=== PATIENT | female | born 1955 | race Caucasian/White ===

== ENCOUNTER 2020-06-20 09:33 | Emergency (ER) | payer BC, SELFPAY ==
[2020-06-20 09:41] VITALS: BP 138/67; PULSE 60; RESP 20; TEMP 36.8; O2SAT 99; BMI 28.6
--- NOTE | 2020-06-20 10:07 | XR_ITS ---
EXAMINATION: XR SHOULDER, LEFT CLINICAL INFORMATION: Shoulder pain. COMPARISON: None pertinent. TECHNIQUE: AP external rotation, Grashey, scapular Y, and axillary views of the left shoulder. FINDINGS: Button and clothing artifact project over the left shoulder. There is no evidence of fracture. The glenohumeral and acromioclavicular alignments are well maintained. There is mild degenerative change at the left acromioclavicular joint. No abnormal soft tissue calcifications are visualized. The imaged thorax is unremarkable. XR/XR shoulder LT min 2V IMPRESSION: No acute osseous abnormality. No malalignment. Mild degenerative change at the AC joint. No abnormal calcifications are demonstrated. Slightly limited by overlying clothing artifact.
--- NOTE | 2020-06-20 10:10 | ECG_ITS ---
Test Reason : CHESTPAIN Blood Pressure : / mmHG Vent. Rate : 063 BPM Atrial Rate : 063 BPM P-R Int : 164 ms QRS Dur : 080 ms QT Int : 430 ms P-R-T Axes : 062 000 047 degrees QTc Int : 440 ms Normal sinus rhythm with sinus arrhythmia RSR' or QR pattern in V1 suggests right ventricular conduction delay Low voltage QRS Left axis deviation Borderline ECG When compared with ECG of 28-SEP-2018 20:08, No significant change was found Referred By: Harmeet Lynn Electronically Signed By:JACY BRUNER MD
[2020-06-20 10:38] LABS: Basophils Percent Auto 0.3 % (0-2); Imm Gran Abs Auto 0.01 X10*3/uL (0.00-0.03); Imm Gran Pct Auto 0.2 % (0.0-0.4); MANUAL DIFF FLAG SCAN; Mean Corpuscular Volume 87.4 fL (80-98); PLT CLUMP 1; SCAN SMEAR FLAG 1
--- NOTE | 2020-06-20 10:38 | ED.EXTPRO ---
HPI - Extremity Problem General Chief complaint: Back Pain/Injury Stated complaint: ABN EKG Time Seen by Provider: 06/20/20 10:07 Source: patient Mode of arrival: ambulatory Limitations: no limitations History of Present Illness HPI Narrative: patient very healthy otherwise X does exercise noticed left shoulder pains for last 5 days started from the back of the neck going to the shoulder and to the arm no paresthesia no sensory loss no motor weakness no known cervical problem. Patient never had this kind of pain before. Patient has seen an FREDIS at urgent care doctor who did the EKG and sent the patient here for further evaluation Complaint: extremity pain Onset (ago): day(s) (5) Pain Consistency: constant Location: left Severity scale (1-10): 3 Quality: aching Radiation: proximal and distal Relieving factors: nothing Exacerbating factors: range of motion Associated symptoms: denies other symptoms Related Data Previous Rx's Medication Instructions Recorded diclofenac sodium 50 mg PO Q12H PRN #20 tab 06/20/20 Allergies Allergy/AdvReac Type Severity Reaction Status Date / Time amoxicillin Allergy Unknown rash Verified 01/06/20 00:00 No Known Allergies Allergy Unverified 04/09/20 16:58 [No Known Allergies*] Review of Systems Review of Systems: REVIEW OF SYSTEMS: Pertinent positives and negatives are stated above in the history. GEN: no fevers, chills, fatigue HEENT: no nasal congestion, sore throat, ear pain NEURO: no headache, dizziness, focal weakness PULM: no cough, shortness of breath CV: no chest pain, palpitations, LE edema ABD: no abdominal pain, nausea, vomiting, diarrhea : no dysuria, urgency, frequency SKIN: no rash ROS otherwise negative x 10 PMFSH Past Medical History Medical History No known health problems Social History Social History Alcohol intake: never Smoked in Last 30 Days: No Use of substances other than those prescribed or required for medical reasons: No Advance Directives: No Advance Directives Information Provided: No Physical Exam Vital Signs: Vital Signs: Last Vital Signs Temp 98.3 F 06/20/20 09:41 Pulse 60 06/20/20 09:41 Resp 20 06/20/20 09:41 BP 138/67 06/20/20 09:41 Pulse Ox 99 06/20/20 09:41 Body Mass Index 28.6 Appearance: Alert. Oriented X3. No acute distress. Eyes: Pupils equal, round and reactive to light. ENT: Pharynx normal. Neck: Normal inspection. Neck supple. CVS: Normal heart rate and rhythm. Pulses normal. no murmur no ectopic beats Respiratory: No respiratory distress. Breath sounds normal. Abdomen: Soft and nontender. Skin: Skin warm and dry. Normal skin color. Normal skin turgor. Extremities: No lower extremity edema. Good range of movement of left shoulder. Tenderness at L trapezius area. Open can test is negative but patient had pain when doing external rotation of left arm Neuro: Oriented X 3. No motor deficit. No sensory deficit. Course Course Course Narrative: patient labs negative for any cardiac damage. Will discharge home on anti-inflammatory medicine for rotator cuff tendinitis left shoulder MDM - Extremity (Nontraumatic) MDM Narrative Medical decision making narrative: patient with shoulder pain without any acute EKG changes no cardiac history will do the basic labs x-ray of the shoulder Lab Data Attestation: I reviewed the patient's lab results. Result diagrams: 06/20/20 10:18 06/20/20 10:18 Labs: Lab Results 06/20/20 06/20/20 06/20/20 Range/Units 10:18 10:18 10:18 WBC 6.3 (4.8-10.8) X10*3/uL RBC 4.67 (4.20-5.50) X10*6/uL Hgb 14.5 (12.0-16.0) g/dl Hct 40.8 (37-47) % MCV 87.4 (80-98) fL MCH 31.0 (27.0-33.0) pg MCHC 35.5 H (31.0-35.0) g/dl RDW 13.3 (11.0-16.0) % Plt Count 121 L (160-400) X10*3/uL MPV 11.0 (9.4-12.3) fL Immature Gran % (Auto) 0.2 (0.0-0.4) % Neut % (Auto) 77.0 H (45-73) % Lymph % (Auto) 15.0 L (20-40) % Traill % (Auto) 6.1 (2-11) % Eos % (Auto) 1.4 (0-4) % Baso % (Auto) 0.3 (0-2) % Lymph # (Auto) 0.9 L (1.2-4.9) X10*3/uL Traill # (Auto) 0.4 (0.1-1.2) X10*3/uL Eos # (Auto) 0.1 (0.0-0.4) X10*3/uL Baso # (Auto) 0.0 (0.0-0.2) X10*3/uL Abs Immat Gran (auto) 0.01 (0.00-0.03) X10*3/uL Absolute Neuts (auto) 4.8 (2.0-8.3) X10*3/uL Absolute Nucleated RBC 0.000 (0.0-0.012) X10*3/uL Nucleated RBC % (auto) 0.0 (0.0-0.2) /100WBC Smear Tech's Comments Not Reportable Sodium 140 (135-145) mmol/L Potassium 4.1 (3.3-5.1) mmol/l Chloride 107 (96-108) mmol/L Carbon Dioxide 23 (22-29) mmol/L Anion Gap 14 (12-20) BUN 17 H (9-16) mg/dL Creatinine 0.80 (0.5-1.4) mg/dL Estim Creat Clear Calc 84.0 Estimated GFR > 60 Random Glucose 97 (60-115) mg/dL Calcium 9.3 (8.4-10.2) mg/dL Troponin I High Sens < 3.5 (<3.5-17.0) ng/L ECG Data Attestation EKG: I personally reviewed and interpreted this ECG as follows: ECG interpretation date: 06/20/20 Prior ECG tracings: not available for review Interpretation: normal sinus rhythm with ventricular rate of 63 normal axis normal no acute ST-T changes impression normal EKG Discharge Plan Discharge Clinical Impression: Sprain of left rotator cuff capsule Qualifiers: Encounter type: initial encounter Qualified Code(s): S43.422A - Sprain of left rotator cuff capsule, initial encounter Patient Disposition: Home, Self-Care Instructions: Rotator Cuff Tendinitis (ED) Additional Instructions: rest your left shoulder apply ice. Take pain medication as advised. Follow with physical therapy if pain continues. Follow-up with PCP for further evaluation if pain continues Prescriptions: New diclofenac sodium 50 mg tablet,delayed release (DR/EC) 50 mg PO Q12H PRN (Reason: pain) Qty: 20 RF: 0 Interventions: ED Discharge Assessment Last Done: 06/20/20 11:49 Discharge Date/Time: 06/20/20 11:49
[2020-06-20 10:39] LABS: Eosinophils Absolute Auto 0.1 X10*3/uL (0.0-0.4); Eosinophils Percent Auto 1.4 % (0-4); Hematocrit 40.8 % (37-47); Hemoglobin 14.5 g/dl (12.0-16.0); Lymphocytes Absolute Auto 0.9 X10*3/uL (1.2-4.9); Mean Corpuscular HGB Conc 35.5 g/dl (31.0-35.0); Monocytes Absolute Auto 0.4 X10*3/uL (0.1-1.2); Monocytes Percent Auto 6.1 % (2-11); Neutrophils Absolute Auto 4.8 X10*3/uL (2.0-8.3); Platelet Count 121 X10*3/uL (160-400); Red Blood Count 4.67 X10*6/uL (4.20-5.50); Red Cell Distribution Width 13.3 % (11.0-16.0); White Blood Count 6.3 X10*3/uL (4.8-10.8)
[2020-06-20 11:14] LABS: Anion Gap 14 (12-20); Blood Urea Nitrogen 17 mg/dL (9-16); Calcium 9.3 mg/dL (8.4-10.2); Carbon Dioxide 23 mmol/L (22-29); Chloride 107 mmol/L (96-108); Estimated Glomerular Filt Rate > 60; Glucose Random 97 mg/dL (60-115); Potassium 4.1 mmol/l (3.3-5.1); Sodium 140 mmol/L (135-145)
[2020-06-20 11:16] LABS: Troponin-I High Sensitivity < 3.5 ng/L (<3.5-17.0)
== END 2020-06-20 11:49 | disposition home or self-care (01) ==
PROVIDERS: Emergency Provider Internal Medicine; PCP Internal Medicine
DX: S43.422A Sprain of left rotator cuff capsule, initial encounter (principal); M25.511 Pain in right shoulder; X58.XXXA Exposure to other specified factors, initial encounter; Y93.9 Activity, unspecified; Y92.9 Unspecified place or not applicable; Y99.9 Unspecified external cause status; Z79.899 Other long term (current) drug therapy
CPT/HCPCS: 36415; 73030; 80048; 84484; 85025; 93005; 99283; 99284

== ENCOUNTER 2020-06-22 16:41 | Outpatient (REF) | payer BC, SELFPAY ==
--- NOTE | 2020-06-22 | XR_ITS ---
EXAMINATION: XR CERVICAL SPINE CLINICAL INFORMATION: Neck pain COMPARISON: None TECHNIQUE: 3 views of the cervical spine were obtained. FINDINGS: There is curvature of the lower cervical spine to the left. Bone alignment is otherwise normal. No fracture or dislocation is seen. There is degenerative spondylosis and degenerative disc disease at C5-C6 and C6-C7. Prevertebral soft tissues are normal. XR/XR cervical spine 3V IMPRESSION: Mild curvature of the lower cervical spine to the left and degenerative changes.
== END 2020-06-22 16:42 | disposition home or self-care (01) ==
LOC: HO.XRAY 16:41
PROVIDERS: PCP Internal Medicine; Visit Provider Internal Medicine
DX: M54.2 Cervicalgia (principal)
CPT/HCPCS: 72040

== ENCOUNTER 2020-06-29 15:30 | Outpatient (REF) | payer BC, SELFPAY ==
--- NOTE | 2020-06-29 | MR_ITS ---
EXAMINATION: MR CERVICAL SPINE WITHOUT CONTRAST CLINICAL INFORMATION: Left arm pain. Numbness in left hand. COMPARISON: None TECHNIQUE: MRI of the cervical spine was obtained using routine sequences without contrast. FINDINGS: VERTEBRAL BODIES AND PARASPINAL SOFT TISSUES: There is a mild reversal of the normal cervical lordosis and a leftward curvature of the cervical spine. There is seovajck-vc-enacfo disc space narrowing with a mild retrosubluxation and endplate spurring at the C5-C6 level. No compression fractures identified. The paraspinal soft tissues are unremarkable. The lung apices are clear. CERVICOMEDULLARY JUNCTION AND VISUALIZED POSTERIOR FOSSA: The craniovertebral junction and imaged portions of the brain parenchyma appear normal. No cord signal abnormality or syrinx is seen. SPINAL LEVELS: C2-C3: No disc pathology. Moderate right-sided facet arthropathy without foraminal encroachment. No central canal stenosis. C3-C4: No significant disc abnormality. Ityg-dk-dsasohfc facet arthropathy, more so on the right side without central canal stenosis or foraminal narrowing. C4-C5: Mild uncovertebral joint spurring. No central canal stenosis. Severe right-sided facet arthropathy with fngl-mc-xuggytrg right foraminal narrowing. C5-C6: Significant loss of disc height with a broad-based disc-osteophyte complex. Very mild narrowing of the central canal with moderate foraminal encroachment, worse on the left side. C6-C7: Shallow central disc protrusion and mild underlying disc bulge without central canal stenosis. Focal left foraminal disc extrusion visible which is suspected to impinge upon the left C7 nerve root. C7-T1: Well-hydrated normal appearance of the disc without central canal stenosis or foraminal narrowing. Fiabuuon-it-nckdvb right-sided facet arthropathy. MR/MR cervical spine wo con IMPRESSION: Focal left foraminal disc extrusion at C6-C7 suspected to impinge upon the left C7 nerve root. Shallow central disc protrusion without central canal stenosis, as well. Moderate multilevel right-sided facet arthropathy and foraminal encroachment with a leftward curvature of the cervical spine. Very mild narrowing of the central canal with a moderate loss of disc height and disc-osteophyte complex at C5-C6.
== END 2020-06-29 15:31 | disposition home or self-care (01) ==
LOC: HO.MRI 15:30
PROVIDERS: Visit Provider Internal Medicine
DX: M54.12 Radiculopathy, cervical region (principal)
CPT/HCPCS: 72141

== ENCOUNTER 2020-10-13 07:00 | Outpatient (RCR) | payer BC, SELFPAY | END 2020-12-03 15:00 | disposition home or self-care (01) | LOC: HO.PTCHIC 07:00 | PROVIDERS: PCP Internal Medicine; Visit Provider Neurological Surgery | DX: M54.12 Radiculopathy, cervical region (principal) | CPT/HCPCS: 97110; 97140; 97161 ==

== ENCOUNTER 2021-01-06 10:19 | Outpatient (REF) | payer BC, SELFPAY ==
[2021-01-09 03:11] LABS: HPV mRNA E6/E7 rflx Not Detected (Not Detected)
== END 2021-01-06 10:20 | disposition home or self-care (01) ==
LOC: HO.LAB 10:19
PROVIDERS: PCP Internal Medicine; Referring Provider Internal Medicine; Visit Provider Obstetrics & Gynecology
DX: Z01.419 Encounter for gynecological examination (general) (routine) without abnormal findings (principal); Z11.51 Encounter for screening for human papillomavirus (HPV)
CPT/HCPCS: 87624; 88142

== ENCOUNTER 2021-04-07 07:59 | Outpatient (REF) | payer BC, SELFPAY ==
--- NOTE | ~2021-04-07 | MM_ITS ---
EXAMINATION: MM SCREENING DIGITAL BREAST TOMOSYNTHESIS, BILATERAL CLINICAL INFORMATION: Screening. Asymptomatic. The lifetime risk of breast cancer based on the Tyrer-Cuzick Model is 9%. COMPARISON: Mammography: 04/01/2020 and prior exams dating back to 06/04/2013. TECHNIQUE: Digital breast tomosynthesis is performed in both the craniocaudal and mediolateral oblique views along with computer-aided detection (CAD). Synthesized 2D images are generated from the tomosynthesis. Additional exaggerated left CC view is provided. FINDINGS: There are scattered areas of fibroglandular density (ACR BI-RADS breast composition Category b). Right breast parenchymal pattern is similar to prior studies. There is no developing density or interval mass or architectural abnormality. Neither breast shows abnormal calcifications. The axilla and skin contours are unremarkable. The left CC view has an oval nodular asymmetric density 7.5 cm from nipple, not appreciated on exaggerated CC projection. The MLO view has small round nodularity 3:30 o'clock position, stable to decreased from 2016. Finding on standard CC view most likely represents incompletely compressed glandular tissue. Patient will be recalled for additional imaging to confirm. MM/MM tomosynthesis screening BI IMPRESSION: 1. Left: Oval asymmetric density posterior outer left breast on CC view, possibly summation artifact or incompletely compressed glandular tissue. 2. Right: No mammographic evidence of malignancy. ASSESSMENT: BI-RADS 0: Incomplete - Need Additional Imaging Evaluation RECOMMENDATION: 1. Additional views of the left breast (3-D spot CC, 3-D spot MLO). 2. Targeted ultrasound if warranted after review of the additional views. 3. Radiology department staff will contact the patient for additional imaging. This patient's information was entered into a reminder system with a target due date for their next mammogram.
--- NOTE | ~2021-04-07 | MM_ITS ---
EXAMINATION: BONE DENSITOMETRY CLINICAL INDICATION: Encounter for screening for osteoporosis. Postmenopausal. COMPARISON: Baseline BD dated 03/31/2017. TECHNIQUE: Using a [employer] DXA System (software version: 13.1) manufactured by [employer] dual-energy x-ray absorptiometry was performed of the lumbar spine and left hip. The images are of good technical quality. Summary results are attached. FINDINGS: AP SPINE L1-L4: Current: BMD 1.232 g/cm2, Z-score 1.2, T-score 0.4, normal, 0.9% increase from baseline (<5% change is not significant). Baseline: BMD 1.221 g/cm2. LEFT FEMUR, NECK: Current: BMD 0.906 g/cm2, Z-score 0.0, T-score -0.9, normal. Baseline: BMD 0.922 g/cm2. LEFT FEMUR, TOTAL: Current: BMD 1.011 g/cm2, Z-score 0.7, T-score 0.0, normal, 2.0% decrease from baseline (<5% change is not significant). Baseline: BMD 1.032 g/cm2. IDENTIFIED RISK FACTORS: Menopause. HISTORY OF FRACTURE: None listed. MEDICATIONS: Calcium or multivitamin. Vitamin D. MM/XR DEXA axial skeleton IMPRESSION: 1. DIAGNOSIS: Normal bone density based on the lowest T-score value of -0.9 in the femoral neck applying World Health Organization criteria. 2. 10-YEAR FRACTURE RISK PREDICTION, FRAX: Major osteoporotic fracture (clinical spine, forearm, hip or shoulder) 7.8%. Hip fracture 0.6%. 3. Treatment Recommendations: NOF guidelines recommend consideration for treatment in postmenopausal women and men age 50 and older presenting with the following: -A hip or vertebral (clinical or morphometric) fracture. -T-score less than or equal to -2.5 at the femoral neck or spine after appropriate evaluation to exclude secondary causes. -Low bone mass at the hip or spine and a 10-year fracture probability by FRAX of greater than or equal to 3% for hip fracture or greater than or equal to 20% for major osteoporotic fracture based on the [place] adapted WHO algorithm. 4. Other Recommendations: All treatment decisions require clinical judgment and consideration of individual patient factors, including patient preferences, comorbidities, previous drug use, risk factors not captured in the FRAX model (e.g. frailty, falls, vitamin D deficiency, increased bone turnover, interval significant decline in bone density) and possible under or overestimation of fracture risk by FRAX. FUTURE SCAN RECOMMENDATION: People with diagnosed cases of osteoporosis or at high risk for fracture should have regular bone mineral density tests. For patients eligible for Medicare, routine testing is allowed once every 2 years. The testing frequency can be increased to one year for patients who have rapidly progressing disease, those who are receiving or discontinuing medical therapy to restore bone mass, or have additional risk factors.
== END 2021-04-07 08:00 | disposition home or self-care (01) ==
LOC: HO.MAMMO 07:59
PROVIDERS: PCP Internal Medicine; Visit Provider Obstetrics & Gynecology
DX: Z13.820 Encounter for screening for osteoporosis (principal); Z78.0 Asymptomatic menopausal state; Z79.899 Other long term (current) drug therapy; Z12.31 Encounter for screening mammogram for malignant neoplasm of breast
CPT/HCPCS: 77063; 77067; 77080

== ENCOUNTER 2021-04-21 12:54 | Outpatient (REF) | payer BC, SELFPAY ==
--- NOTE | ~2021-04-21 | MM_ITS ---
EXAMINATION: MM DIAGNOSTIC DIGITAL BREAST TOMOSYNTHESIS, LEFT CLINICAL INFORMATION: Recall from screening for oval asymmetric density posterior outer left breast on CC view, possibly summation artifact or incompletely compressed glandular tissue. COMPARISON: Mammography: 04/07/2021 and prior exams dating back to 12/09/2015. TECHNIQUE: Digital breast tomosynthesis is performed. 2D images are generated from the tomosynthesis. The following views are obtained: Spot CC, spot ML. FINDINGS: There are scattered areas of fibroglandular density (ACR BI-RADS breast composition Category b). The additional spot CC view shows no persistent asymmetric density in the posterior outer breast. Parenchymal pattern appears similar to prior studies. The additional spot ML view lower quadrant shows stable smooth nodularity similar to prior spot view 2016. No developing density. Results are discussed with the patient at time of visit. MM/MM tomosynthesis added views L IMPRESSION: Additional views show no significant changes from prior studies. ASSESSMENT: BI-RADS 2: Benign RECOMMENDATION: Routine annual mammography screening. This patient's information was entered into a reminder system with a target due date for their next mammogram.
== END 2021-04-21 12:55 | disposition home or self-care (01) ==
LOC: HO.MAMMO 12:54
PROVIDERS: Visit Provider Obstetrics & Gynecology
DX: R92.2 Inconclusive mammogram (principal)
CPT/HCPCS: 77061; 77065

== ENCOUNTER 2021-08-26 09:38 | Outpatient (REF) | payer BC, SELFPAY ==
[2021-08-26 13:26] LABS: CT PCR NOT DETECTED (Not Detect.); NG PCR NOT DETECTED (Not Detect.)
== END 2021-08-26 09:39 | disposition home or self-care (01) ==
LOC: HO.LNP 09:38
PROVIDERS: PCP Internal Medicine; Visit Provider Obstetrics & Gynecology
DX: S30.814A Abrasion of vagina and vulva, initial encounter (principal)
CPT/HCPCS: 87491; 87591

== ENCOUNTER 2021-09-23 13:56 | Outpatient (REF) | payer BC, SELFPAY ==
--- NOTE | ~2021-09-23 | US_ITS ---
EXAMINATION: US PELVIS CLINICAL INFORMATION: Abnormal uterine and vaginal bleeding COMPARISON: None TECHNIQUE: Ultrasound of the pelvis is performed using both transabdominal and transvaginal transducers along with Doppler. Transvaginal imaging is performed due to inadequate visualization transabdominally. FINDINGS: The uterus is anteverted and measures 6.4 x 2.8 x 4.3 cm in dimension. No focal uterine lesion is seen. Endometrial thickness is normal measuring 0.3 cm. The ovaries are normal. The right ovary measures 3.1 x 2.2 x 2.7 cm and the left ovary measures 1.6 x 1 x 1.2 cm. There is a tubular structure in the right adnexa questionable for hydrosalpinx. There is no ascites. US/US pelvic and transvaginal IMPRESSION: Tubular structure in the right adnexa questionable for hydrosalpinx. Otherwise unremarkable exam.
== END 2021-09-23 13:57 | disposition home or self-care (01) ==
LOC: HO.HMGCX 13:56
PROVIDERS: PCP Internal Medicine; Visit Provider Obstetrics & Gynecology
DX: N93.0 Postcoital and contact bleeding (principal)
CPT/HCPCS: 76830; 76856

== ENCOUNTER 2021-09-28 08:18 | Outpatient (REF) | payer BC, SELFPAY | END 2021-09-28 08:19 | disposition home or self-care (01) | LOC: HO.HMGCX 08:18 | PROVIDERS: PCP Internal Medicine; Visit Provider Internal Medicine | DX: Z13.89 Encounter for screening for other disorder (principal) ==

== ENCOUNTER → 2021-09-30 14:26 | Outpatient (BNVA) | payer BC, SELFPAY | PROVIDERS: Visit Provider Obstetrics & Gynecology ==

== ENCOUNTER 2021-10-05 07:00 | Outpatient (RCR) | payer BC, SELFPAY ==
--- NOTE | ~2021-10-05 | XR_ITS ---
EXAMINATION: XR LUMBOSACRAL SPINE CLINICAL INFORMATION: Chronic bilateral lower back pain, left sciatica. COMPARISON: Radiographs of the sacrum and coccyx dated 07/12/2012. TECHNIQUE: AP and lateral views of the lumbar spine and lateral view of the lumbosacral junction. FINDINGS: There is bony demineralization. There is a moderate L3 upper endplate compression fracture. A further moderate L5 compression fracture is seen. There is mild posterior disc space narrowing at L2-L3, and a 3 mm retrolisthesis is seen at L3-L4. There is moderate disc space narrowing at L5-S1. No acute fracture or spondylolisthesis is seen. There is multi-level very mild lumbar spondylosis. The posterior elements are intact. There is multi-level lumbar facet arthropathy. A stable, chronic deformity of the mid sacrum is noted. The paravertebral soft tissues are unremarkable. XR/XR lumbar spine 2-3V IMPRESSION: 1. There are age-indeterminate moderate L3 and L5 compression fractures. 2. There is mild degenerative disc disease at L2-L3 and L3-L4, and moderate degenerative disc disease seen at L5-S1. 3. There is multi-level lumbar spondylosis and facet arthropathy.
== END 2022-04-14 11:43 | disposition home or self-care (01) ==
LOC: HO.PTCHIC 07:00
PROVIDERS: PCP Internal Medicine; Visit Provider Internal Medicine
DX: M53.3 Sacrococcygeal disorders, not elsewhere classified (principal); M25.552 Pain in left hip
CPT/HCPCS: 72100; 97014; 97110; 97112; 97140; 97161

== ENCOUNTER 2021-10-11 17:43 | Outpatient (REF) | payer BC, SELFPAY ==
--- NOTE | ~2021-10-11 | MR_ITS ---
EXAMINATION: MR LUMBAR SPINE WITHOUT CONTRAST CLINICAL INFORMATION: 66-year-old with chronic left-sided back pain and sciatica. COMPARISON: 09/28/2021 x-rays. TECHNIQUE: MRI of the lumbar spine was obtained using routine sequences without contrast. FINDINGS: Coronal Alignment: Slight mid lumbar levocurvature, likely positional or secondary to muscle spasm. Sagittal Alignment: 2 mm retrolisthesis at L3-L4 consistent with previous x-ray. Otherwise, the lumbosacral spine is anatomically aligned in the sagittal plane. Lumbosacral Junction: Transitional anatomy with lowest lumbar-like segment labeled as L5 which appears partially sacralized. There is deformity of the S1-S2 sacral junction with bony productive changes along the anterior and posterior margins consistent with previous trauma, with associated mild chronic angulation without marrow edema. Vertebral Bodies: Zgzj-lc-movzonyj superior endplate compression fracture deformity of L3, which appears predominantly healed. Mild loss of height of the posterior aspect of the L5 vertebral body is also noted which is chronic. Remaining vertebral body heights are well maintained. Disc Spaces and Endplates: Mild posterior disc space height loss at L2-L3 with disc desiccation noted. Mild disc space height loss at L5-S1 with disc desiccation and intradiscal ossification/calcification. Minor anterior marginal spondylosis between L1-L2 and L4-L5 inclusive. Schmorl's nodes noted along the superior endplate of L3. Spinal Canal: No abnormal developmental findings. Bone Marrow: Tiny focus of type I degenerative marrow signal change noted along the central aspect of the superior endplate of L3 adjacent to a Schmorl's node. Minimal type II marrow signal changes along the endplates at L5-S1 and L4-L5. No significant marrow-replacing process or unusual bone marrow edema. Conus Medullaris: Terminates at L1. Morphology and signal is normal. Intradural Nerve Roots: Within normal limits. L5-S1: No significant disc bulge or herniation. There is partial ankylosis of the L5-S1 facet joints bilaterally, right more than left, consistent with a transitional segment. No significant canal or neuroforaminal stenosis. L4-L5: Mild diffuse disc bulging is noted, with ligamentum flavum thickening and severe bilateral facet arthrosis, with severe central spinal canal stenosis and crowding of the intradural nerve roots. Eaabkvnm-ev-xjiybd subarticular recess stenosis, left more than right, is also noted and there is severe right-sided and ireupghe-lc-cbeqak left-sided neuroforaminal stenosis, with impingement on the exiting L4 nerve roots, right more than left. L3-L4: Trace retrolisthesis with mild disc bulging and a superimposed left subarticular to foraminal disc protrusion. Mild facet arthropathy bilaterally noted without significant central spinal canal stenosis. There is yuoo-ew-ccjwwlgj narrowing of the left subarticular zone, and there is mild right-sided and avrp-zg-ugfrvksy left-sided neuroforaminal stenosis without exiting neural impingement. L2-L3: Mild disc bulging is noted with a superimposed small left subarticular disc protrusion with slight flattening of the dural sac slightly asymmetric to the left without significant canal stenosis. There is mild facet arthropathy noted without significant neuroforaminal stenosis. L1-L2: No disc bulge or herniation and no significant facet arthrosis, canal or neuroforaminal stenosis. Paraspinal/Retroperitoneal: The paravertebral soft tissues are grossly unremarkable. Incidental note is made of a prominently distended urinary bladder. MR/MR lumbar spine wo con IMPRESSION: 1. Slight retrolisthesis at L3-L4 noted with transitional anatomy at L5-S1. 2. Discogenic degenerative changes between L2-L3 and L5-S1 inclusive, as described above, with multilevel disc bulging and left subarticular to foraminal disc protrusion at L3-L4. Multilevel bilateral facet arthropathy noted, most apparent at L4-L5, with severe spinal canal stenosis at L4-L5. 3. Mild left subarticular recess stenosis at L3-L4. 4. Cmezhrzp-bb-onrfbh neuroforaminal stenosis at L4-L5, right more than left, with bilateral L4 nerve root impingement. Cdvt-eq-exuljsvj left and mild right-sided neuroforaminal stenosis at L3-L4 without exiting neural impingement. 5. Mild chronic superior endplate compression fracture deformity of L3 and a chronic posttraumatic deformity of the sacrum in the midline suggesting a previous, healed fracture. 6. Considerably enlarged urinary bladder. Correlate clinically to exclude urinary retention.
--- NOTE | ~2021-10-11 | MR_ITS ---
EXAMINATION: MR PELVIS WITHOUT CONTRAST CLINICAL INFORMATION: Chronic left-sided back pain and left sided sciatic. COMPARISON: Radiographs 07/20/2012. TECHNIQUE: MRI without contrast is performed on the pelvis with attention to the sacroiliac joints. FINDINGS: The sacroiliac joints are narrowed with small osteophytes. No effusions, marrow edema, erosions, or definite ankylosis. There is a transitional lumbosacral junction with the left L5 transverse process articulating with the sacrum. L5-S1 disc space narrowing. Marked bilateral L5-S1 facet arthrosis. Possible remote, healed transverse fracture of S2 given the kyphotic positioning which does not appear significantly changed since 2011. Piriformis muscles are symmetric. There is no mass, mass effect, or focal fluid collection along the course of the left sciatic nerve which appears to be of normal and symmetric size and signal. No hip joint effusions. Bilateral gluteus minimus insertional tendinitis. MR/MR pelvis wo con IMPRESSION: No acute osseous abnormalities. No active sacroiliitis. Left gluteus minimus insertional tendinitis.
== END 2021-10-11 17:44 | disposition home or self-care (01) ==
LOC: HO.MRI 17:43
PROVIDERS: PCP Internal Medicine; Visit Provider Internal Medicine
DX: G89.29 Other chronic pain (principal); M54.42 Lumbago with sciatica, left side; M53.3 Sacrococcygeal disorders, not elsewhere classified
CPT/HCPCS: 72148; 72195

== ENCOUNTER 2021-10-27 14:22 | Outpatient (REF) | payer BC, SELFPAY | END 2021-10-27 14:23 | disposition home or self-care (01) | LOC: HO.LAB 14:22 | PROVIDERS: PCP Internal Medicine; Visit Provider Urology | DX: N39.0 Urinary tract infection, site not specified (principal); R39.12 Poor urinary stream; R33.9 Retention of urine, unspecified; N36.2 Urethral caruncle; Z78.0 Asymptomatic menopausal state | CPT/HCPCS: 87086; 87088; 87186 ==

== ENCOUNTER → 2021-12-28 10:18 | Outpatient (BNVA) | payer BC, SELFPAY | PROVIDERS: PCP Internal Medicine; Visit Provider Urology | DX: N36.2 Urethral caruncle (principal); R33.9 Retention of urine, unspecified | CPT/HCPCS: 51798 ==

== ENCOUNTER 2022-04-08 07:51 | Day surgery (SDC) | payer BC, SELFPAY ==
[2022-04-05 09:08] VITALS: BMI 29.0
--- NOTE | 2022-04-07 14:37 | HO.ANESPROP2 ---
Documented by User: Marybel Monroe NP 04/07/22 14:37 HPI - Anesthesia Eval Consult details Narrative: 66yo F for Colonoscopy PMFSH Active Problems Active Problems: All Active Problems (Updated 04/05/22 @ 09:07 by Radha Hadley RN) Well woman exam (Acute) Menopausal state (Acute) Osteopenia (Acute) Postcoital bleeding (Acute) Urethral polyp (Acute) Vaginal abrasion (Acute) Urethral caruncle (Acute) Urinary retention with incomplete bladder emptying (Acute) Past Medical History Medical History GERD (gastroesophageal reflux disease) Surgical History Surgical History H/O colonoscopy History of back surgery History of esophagogastroduodenoscopy (EGD) History of tonsillectomy Hx of appendectomy Social History Social History Household Members: Spouse Housing: House Alcohol intake: never Patient Tobacco Use Status: Never used Tobacco Use of substances other than those prescribed or required for medical reasons: No Are you DNR?: No Advance Directives: No Advance Directives Information Provided: Yes Sexual orientation: Straight/Heterosexual Gender identity: Female Meds Allergies Allergy/AdvReac Type Severity Reaction Status Date / Time amoxicillin Allergy Intermediate rash Verified 04/08/22 08:29 Home Medications Medication Instructions Recorded Confirmed Last Taken Type cholecalciferol (vitamin D3) 25 25 mcg PO DAILY 02/10/22 04/05/22 Unknown History mcg (1,000 unit) capsule Exam Exam Date and Time: April 07, 2022 1437 Height,Weight and Vital Signs: Height 5 ft 9 in Weight 89.358 kg Assessment and Plan Assessment Anesthesia Assessment: Chart Reviewed Documented by User: Italo Peña MD 04/08/22 09:00 PMFSH Past Medical History Medical History GERD (gastroesophageal reflux disease) Family History Family history of problems with anesthesia: No Surgical History Surgical History H/O colonoscopy History of back surgery History of esophagogastroduodenoscopy (EGD) History of tonsillectomy Hx of appendectomy History of Problems with Anesthesia: No Social History Social History Household Members: Spouse Housing: House Alcohol intake: never Patient Tobacco Use Status: Never used Tobacco Use of substances other than those prescribed or required for medical reasons: No Are you DNR?: No Advance Directives: No Advance Directives Information Provided: Yes Sexual orientation: Straight/Heterosexual Gender identity: Female Meds Allergies Allergy/AdvReac Type Severity Reaction Status Date / Time amoxicillin Allergy Intermediate rash Verified 04/08/22 08:29 Home Medications Medication Instructions Recorded Confirmed Last Taken Type cholecalciferol (vitamin D3) 25 25 mcg PO DAILY 02/10/22 04/05/22 Unknown History mcg (1,000 unit) capsule Exam Airway Mallampati Class: II TM Dist: >3cm Neck ROM: Full Loose/Missing/Broken Teeth: No Heart: [id number] Lungs: cta b/l Assessment and Plan Assessment Anesthesia Assessment: Anesthesia Plan Discussed Final Anesthetic Review Family History of Problems with Anesthesia: No History of Problems with Anesthesia: No NPO: Yes ASA Class: II Final Preanesthetic Review: No Changes in Pt Med Stat, Meds/Allgs Chart Reviewed, Consent Obtained/Reviewed and Anes Risks/Benef Reviewed Patient Risk: Intermediate Procedure Risk: Low Assessment/Block/Sedation in SS: Assess/Block/Sedation-SS Anesthetic Plan Anesthetic Plan: MAC: and Agree w/ Assess. and Plan Disposition: Standard PACU
[2022-04-08 08:46] VITALS: BP 125/72; PULSE 73; RESP 16; TEMP 36.7; O2SAT 97
[2022-04-08] MEDS: Lactated Ringers 1,000 ML 100 ML IVCONT (08:50)
[2022-04-08 09:47] VITALS: BP 95/41; PULSE 89; RESP 16; TEMP 36.1; O2SAT 97
--- NOTE | 2022-04-08 09:51 | PM.OP ---
Brief Operative Note Date of Service: 04/08/22 Pre-op diagnosis: Screening Post-op diagnosis: other (Colon polyps) Procedure: Colonoscopy to the cecum and TI with bx/removal of polyps Surgeon: Dakota Pfeiffer Anesthesia: MAC Was an Field Cane Scale Clerk used for this Procedure?: No Estimated blood loss (mL): 2.0 Pathology: other (A. Ileocecal valve polyp B. Ascending colon polyp) Condition: stable Disposition: PACU
[2022-04-08 10:04] VITALS: BP 98/53; PULSE 77; RESP 15; TEMP 36.1; O2SAT 99
--- NOTE | 2022-04-08 10:21 | OP_ITS ---
SURGEON: Dakota Pfeiffer MD INDICATIONS: The patient presents for evaluation of colorectal cancer screening and personal history of tubular adenoma of the colon. Full consent has been obtained from her for this, including risks of bleeding and perforation. PREOPERATIVE DIAGNOSIS: POSTOPERATIVE DIAGNOSIS: PROCEDURE PERFORMED: Colonoscopy to the cecum and terminal ileum with biopsy and removal of polyps. ESTIMATED BLOOD LOSS: COMPLICATIONS: ANESTHESIA: Monitored anesthesia care. ASSISTANTS: SPECIMENS: PREOPERATIVE DIAGNOSES: Colorectal cancer screening, personal history of tubular adenoma of the colon, and family history of colon cancer. POSTOPERATIVE DIAGNOSES: Colorectal cancer screening, personal history of tubular adenoma of the colon, and family history of colon cancer, small colon polyps, diverticulosis, and internal hemorrhoids. DESCRIPTION OF PROCEDURE: The patient was placed in the left lateral decubitus position. The digital rectal exam revealed no abnormalities. The [employer] video pediatric colonoscope was entered into the rectum and advanced easily to the cecum. Once in the cecum, I did identify a normal-appearing cecal pouch with appendiceal orifice and a normal-appearing ileocecal valve, other than an approximately 4 mm polyp on the ileocecal valve, which was removed completely with a cold biopsy forceps. The terminal ileum was cannulated and appeared normal. The scope was withdrawn back in the colon. The entire cecum appeared normal. The scope was slowly withdrawn assessing all mucosal surfaces carefully. Preparation was excellent. In the ascending colon was an approximately 2 or 3 mm polyp, which was biopsied and completely removed with a cold biopsy forceps. I did not visualize any other polyps, colitis, or angiodysplasia. There was a mild amount of sigmoid diverticulosis. In the rectum, the scope was retroflexed visualizing internal hemorrhoids but no other pathology. The rectal mucosa appeared normal. The scope was straightened and withdrawn from the patient. She tolerated the procedure well and was returned to the recovery area in stable condition. IMPRESSION: 1. Small colon polyps, status post biopsy and removal. 2. Diverticulosis. 3. Internal hemorrhoids. PLAN: The results of the biopsy will be checked. I would recommend a repeat colonoscopy in 5 years for further screening. She will otherwise see me on a p.r.n. basis. MD THOMAS Brown/EILEEN / [phone]
== END 2022-04-08 10:30 | disposition home or self-care (01) ==
PROVIDERS: PCP Internal Medicine; Visit Provider Internal Medicine
PROC: 0DJD8ZZ Inspection of Lower Intestinal Tract, Via Natural or Artificial Opening Endoscopic (ICD-10-PCS; CPT 45378; principal; 2022-04-08 09:00)
DX: Z12.11 Encounter for screening for malignant neoplasm of colon (principal); Z86.010 Personal history of colon polyps; Z80.0 Family history of malignant neoplasm of digestive organs; D12.0 Benign neoplasm of cecum; D12.2 Benign neoplasm of ascending colon; K57.30 Diverticulosis of large intestine without perforation or abscess without bleeding; K64.8 Other hemorrhoids; K21.9 Gastro-esophageal reflux disease without esophagitis; Z79.899 Other long term (current) drug therapy; Z88.1 Allergy status to other antibiotic agents
CPT/HCPCS: 45380; 88305

== ENCOUNTER 2022-04-18 07:30 | Outpatient (REF) | payer BC, SELFPAY ==
--- NOTE | ~2022-04-18 | MM_ITS ---
EXAMINATION: MM SCREENING DIGITAL BREAST TOMOSYNTHESIS, BILATERAL CLINICAL INFORMATION: Screening. Asymptomatic. The lifetime risk of breast cancer based on the Tyrer-Cuzick Model is 8%. COMPARISON: Mammography: 04/21/2021, 04/07/2021 and prior exams dating back to 09/14/2015. TECHNIQUE: Digital breast tomosynthesis is performed in both the craniocaudal and mediolateral oblique views along with computer-aided detection (CAD). Synthesized 2D images are generated from the tomosynthesis. FINDINGS: There are scattered areas of fibroglandular density (ACR BI-RADS breast composition Category b). Parenchymal pattern is similar to prior studies. No developing density or interval mass or architectural abnormality. Small chronic asymmetry outer left breast is similar to prior studies. No abnormal calcifications. The axilla and skin contours are unremarkable. No significant changes. MM/MM tomosynthesis screening BI IMPRESSION: No mammographic evidence of malignancy. ASSESSMENT: BI-RADS 2: Benign RECOMMENDATION: Routine annual mammography screening. This patient's information was entered into a reminder system with a target due date for their next mammogram.
== END 2022-04-18 07:31 | disposition home or self-care (01) ==
LOC: HO.MAMMO 07:30
PROVIDERS: PCP Internal Medicine; Visit Provider Internal Medicine
DX: Z12.31 Encounter for screening mammogram for malignant neoplasm of breast (principal)
CPT/HCPCS: 77063; 77067

== ENCOUNTER 2022-05-16 12:37 | Outpatient (REF) | payer BC, SELFPAY ==
[2022-05-16 13:59] LABS: Appearance Urine Cloudy; Color Urine Yellow; Glucose Urine UA Negative (Negative); Leukocyte Esterase Urine Large (3+) (Negative); Nitrite Urine Negative (Negative); UMIC TRIGGER UA YES; Urine Blood Negative (Negative); Urine Ketones Negative (Negative); Urine Protein Negative (Neg-Trace)
[2022-05-16 14:03] LABS: Bacteria Urine 2+ (None Seen); Hyaline Casts Urine 0-2 /LPF (0-2); RBC Urine 0-2 /HPF (0-2); Squamous Epithelial Cell Urine 0-2 /HPF (0-2); WBC Urine >50 /HPF (0-5)
== END 2022-05-16 12:38 | disposition home or self-care (01) ==
LOC: HO.HMGCLDS 12:37
PROVIDERS: PCP Internal Medicine; Visit Provider Urology
DX: R33.9 Retention of urine, unspecified (principal)
CPT/HCPCS: 81001; 87086; 87088; 87186

== ENCOUNTER 2022-06-07 07:00 | Outpatient (RCR) | payer BC, SELFPAY | END 2022-09-09 10:31 | disposition home or self-care (01) | LOC: HO.PTCHIC 07:00 | PROVIDERS: PCP Internal Medicine; Visit Provider Internal Medicine | DX: M54.12 Radiculopathy, cervical region (principal); M54.2 Cervicalgia | CPT/HCPCS: 97012; 97110; 97140; 97162 ==

== ENCOUNTER 2022-07-04 14:55 | Outpatient (REF) | payer BC, SELFPAY ==
--- NOTE | ~2022-07-04 | MR_ITS ---
EXAMINATION: MR SHOULDER WITHOUT CONTRAST, RIGHT CLINICAL INFORMATION: Radiculopathy, right shoulder pain. Decreased range of motion. COMPARISON: None TECHNIQUE: MRI of the shoulder without contrast was performed on a high-field scanner. FINDINGS: ROTATOR CUFF: An interstitial tear of the supraspinatus tendon measures 0.8 cm AP. There is longitudinal interstitial delamination propagating medially within the tendon along the myotendinous junction by 4.8 cm with a small intramuscular sentinel cyst. There is moderate supraspinatus tendinosis. Cortical irregularity is evident at the greater tuberosity with chronic periosteal hypertrophy. Moderate subscapularis tendinosis. No subscapularis tendon tears. No muscle atrophy or fatty infiltration. BICEPS: Normal. CORACOACROMIAL ARCH: The undersurface of the acromion is curved with a small anterior subacromial spur. Moderate acromioclavicular osteoarthritis with prominent undersurface osteophytes that produce minimal mass effect on the supraspinatus muscle. A small volume of fluid is present in the subacromial-subdeltoid bursa and subcoracoid bursa. LABRUM/CAPSULE: The glenoid labrum is degenerated diffusely with loss of labral tissue and probable small ill-defined superimposed degenerative tears anteroinferiorly and posterosuperiorly. Joint capsule appears intact. No appreciable capsular thickening or edema signal. GLENOHUMERAL JOINT/MARROW: There is moderate nonuniform articular cartilage loss at the glenoid, more pronounced at its posterior half. Additional [id number] nonuniform articular cartilage loss is evident at the humeral head, most pronounced anterosuperiorly where there is full-thickness chondral fissuring and underlying cortical irregularity. Moderate-sized humeral osteophytes and smaller glenoid osteophytes are noted. Small glenohumeral joint effusion. A 6 x 4 mm chondral loose body is evident in the superior subscapularis recess. MR/MR shoulder RT wo con IMPRESSION: 1. Moderate glenohumeral osteoarthritis with diffuse degeneration of the glenoid labrum. 2. Moderate supraspinatus and subscapularis tendinosis with a small 0.8 cm interstitial partial tear of the supraspinatus tendon. No larger rotator cuff tears. No muscle atrophy. 3. Moderate acromioclavicular osteoarthritis, a small anterior subacromial spur, and mild subacromial-subdeltoid bursitis. 4. Small 6 mm chondral loose body in the superior subscapularis recess.
--- NOTE | ~2022-07-04 | MR_ITS ---
EXAMINATION: MR CERVICAL SPINE WITHOUT CONTRAST CLINICAL INFORMATION: Right shoulder pain. C/S radiculopathy. COMPARISON: Cervical spine MRI 01/28/2020. TECHNIQUE: MRI of the cervical spine was performed using routine sequences without contrast. FINDINGS: The cervical vertebral bodies maintain normal heights. There is moderate disc height loss at C5-C6 with trace retrolisthesis. Moderate disc height loss also seen at C6-C7. The cervical cord signal appears normal. There is no bone marrow edema. The imaged intracranial contents and extraspinal soft tissues appear normal. SPINAL LEVELS: C2-C3: No posterior disc abnormality. Moderate right facet arthropathy. No spinal canal or neural foraminal stenosis. C3-C4: No posterior disc abnormality. Severe right and mild left facet arthropathy. No spinal canal or neural foraminal stenosis. C4-C5: Mild uncovertebral hypertrophy and severe right facet arthropathy. No spinal canal or neural foraminal stenosis. C5-C6: Disc osteophyte complex with uncovertebral hypertrophy and mild right facet arthropathy resulting in mild spinal canal stenosis and moderate to severe left and moderate right neural foraminal stenosis. C6-C7: Mild disc osteophyte complex with left uncovertebral hypertrophy resulting in severe left and mild right neural foraminal stenosis. Mild spinal canal stenosis. C7-T1: No posterior disc abnormality. No spinal canal or neural foraminal stenosis. MR/MR cervical spine wo con IMPRESSION: 1. At C5-C6 there is mild spinal canal stenosis and moderate to severe left and moderate right neural foraminal stenosis. 2. At C6-C7 there is severe left and mild right neural foraminal stenosis and mild spinal canal stenosis. 3. Advanced facet arthropathy is seen on the right at C2-C3, C3-C4, and C4-C5.
== END 2022-07-04 14:56 | disposition home or self-care (01) ==
LOC: HO.MRI 14:55
PROVIDERS: Visit Provider Physician Assistant
DX: M54.12 Radiculopathy, cervical region (principal); M25.511 Pain in right shoulder
CPT/HCPCS: 72141; 73221

== ENCOUNTER 2022-08-29 14:30 | Outpatient (REF) | payer BC, SELFPAY ==
[2022-08-29 16:37] LABS: Appearance Urine Cloudy; Color Urine Yellow; Glucose Urine UA Negative (Negative); Leukocyte Esterase Urine Large (3+) (Negative); Nitrite Urine Positive (Negative); PH 5.5 (5.0-9.0); Specific Gravity - Urine 1.015 (1.005-1.025); UMIC TRIGGER UA YES; Urine Blood Negative (Negative); Urine Ketones Negative (Negative); Urine Protein Negative (Neg-Trace)
[2022-08-29 16:39] LABS: Bacteria Urine 1+ (None Seen); Hyaline Casts Urine 0-2 /LPF (0-2); RBC Urine 0-2 /HPF (0-2); Squamous Epithelial Cell Urine 0-2 /HPF (0-2); WBC Urine >50 /HPF (0-5)
== END 2022-08-29 14:31 | disposition home or self-care (01) ==
LOC: HO.HMGCLDS 14:30
PROVIDERS: PCP Internal Medicine; Visit Provider Urology
DX: R33.9 Retention of urine, unspecified (principal)
CPT/HCPCS: 81001; 87086; 87088; 87186

== ENCOUNTER 2022-09-26 14:07 | Outpatient (REF) | payer BC, SELFPAY ==
[2022-09-27 09:07] LABS: BV Int Neg Control Negative (Negative); BV Int Pos Control Positive (Positive)
== END 2022-09-26 14:08 | disposition home or self-care (01) ==
LOC: HO.LAB 14:07
PROVIDERS: PCP Internal Medicine; Visit Provider Advanced Practice Midwife
DX: N94.9 Unspecified condition associated with female genital organs and menstrual cycle (principal)
CPT/HCPCS: 81003; 87480; 87510; 87660

== ENCOUNTER → 2022-10-05 08:01 | Outpatient (BNVA) | payer BC, SELFPAY | PROVIDERS: PCP Internal Medicine; Visit Provider Advanced Practice Midwife | DX: Z13.89 Encounter for screening for other disorder (principal) ==

== ENCOUNTER → 2022-10-25 10:53 | Outpatient (BNVA) | payer BC, SELFPAY | PROVIDERS: PCP Internal Medicine; Visit Provider Advanced Practice Midwife | DX: Z13.89 Encounter for screening for other disorder (principal) ==

== ENCOUNTER 2022-11-25 07:00 | Outpatient (RCR) | payer BC, SELFPAY | END 2023-01-03 09:17 | disposition home or self-care (01) | LOC: HO.PTCHIC 07:00 | PROVIDERS: PCP Internal Medicine; Visit Provider Orthopaedic Surgery Orthopaedic Trauma | DX: R60.0 Localized edema (principal); M75.111 Incomplete rotator cuff tear or rupture of right shoulder, not specified as traumatic | CPT/HCPCS: 97110; 97140; 97162 ==

== ENCOUNTER 2022-12-29 13:07 | Outpatient (REF) | payer BC, SELFPAY ==
[2022-12-29 14:05] LABS: Appearance Urine Turbid; Color Urine Yellow; Glucose Urine UA Negative (Negative); Leukocyte Esterase Urine Large (3+) (Negative); Nitrite Urine Positive (Negative); PH 6.5 (5.0-9.0); UMIC TRIGGER UA YES; Urine Blood Small (1+) (Negative); Urine Ketones Negative (Negative); Urine Protein Trace mg/dL (Neg-Trace)
[2022-12-29 14:22] LABS: Bacteria Urine 4+ (None Seen); Hyaline Casts Urine 0-2 /LPF (0-2); Squamous Epithelial Cell Urine 0-2 /HPF (0-2); WBC Urine >50 /HPF (0-5)
== END 2022-12-29 13:08 | disposition home or self-care (01) ==
LOC: HO.HMGCLDS 13:07
PROVIDERS: PCP Internal Medicine; Visit Provider Nurse Practitioner Family
DX: R33.9 Retention of urine, unspecified (principal)
CPT/HCPCS: 81001; 87086; 87088; 87186

== ENCOUNTER → 2023-01-02 10:02 | Outpatient (BNVA) | payer BC, SELFPAY | PROVIDERS: PCP Internal Medicine; Visit Provider Nurse Practitioner Family | DX: R33.9 Retention of urine, unspecified (principal); N39.0 Urinary tract infection, site not specified; Z79.899 Other long term (current) drug therapy | CPT/HCPCS: 51798 ==

== ENCOUNTER 2023-01-04 11:10 | Outpatient (REF) | payer BC, SELFPAY ==
--- NOTE | ~2023-01-04 | US_ITS ---
EXAMINATION: US RETROPERITONEAL COMPLETE (RENAL) CLINICAL INFORMATION: Urinary tract infection, site not specified. COMPARISON: None available. TECHNIQUE: Real-time imaging of the kidneys and bladder. FINDINGS: RIGHT KIDNEY: 10.5 x 4.0 x 5.8 cm (SAG x AP x TRV). The kidney is normal in size, contour, and echogenicity. Renal cortical thickness is normal. No calculi or focal parenchymal lesions. No hydronephrosis. LEFT KIDNEY: 10.3 x 5.7 x 5.2 cm (SAG x AP x TRV). The kidney is normal in size, contour, and echogenicity. Renal cortical thickness is normal. No calculi or focal parenchymal lesions. No hydronephrosis. BLADDER: Well distended and normal. Bilateral ureteral jets are demonstrated. Prevoid bladder volume is 624 mL. Postvoid bladder volume is 193 mL. US/US retroperitoneal comp IMPRESSION: 1. Large postvoid bladder residual of 193 mL. 2. Unremarkable sonographic appearance of the kidneys.
== END 2023-01-04 11:11 | disposition home or self-care (01) ==
LOC: HO.HMGCX 11:10
PROVIDERS: PCP Internal Medicine; Visit Provider Nurse Practitioner Family
DX: N39.0 Urinary tract infection, site not specified (principal); R33.9 Retention of urine, unspecified
CPT/HCPCS: 76770

== ENCOUNTER 2023-02-08 07:00 | Outpatient (RCR) | payer BC, SELFPAY | END 2023-02-08 10:56 | disposition home or self-care (01) | LOC: HO.PTCHIC 07:00 | PROVIDERS: PCP Internal Medicine; Visit Provider Orthopaedic Surgery Orthopaedic Trauma | DX: M75.102 Unspecified rotator cuff tear or rupture of left shoulder, not specified as traumatic (principal) | CPT/HCPCS: 97110; 97140; 97163 ==

== ENCOUNTER 2023-02-13 07:48 | Outpatient (AMB) | payer BC, SELFPAY ==
--- NOTE | 2023-02-13 07:52 | MHC.OFFVIS ---
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 No complaints. Last Pap/HPV was negative in 01/11 Last Mammogram was BI-RADS 2 in 04/14, the patient scheduled her next screening mammogram in few weeks Last Colonoscopy was in 04/14, will be due in 04/19 No recent DEXA scan PFSH Medical History GERD (gastroesophageal reflux disease) Vulvar pain Surgical History H/O colonoscopy History of back surgery History of esophagogastroduodenoscopy (EGD) History of tonsillectomy Hx of appendectomy Family History Father Colon cancer Mother HTN (hypertension) Dementia Social History Household Members: Spouse Housing: House Alcohol intake: never Patient Tobacco Use Status: Never used Tobacco Sexual orientation: Straight/Heterosexual Gender identity: Female Female Reproductive History Menstrual Age of Menarche: 12 Total pregnancies: 1 Full term: 1 Number of Living Children: 1 Date of last pap smear: 01/07/21 Date of Mammogram: 04/18/22 Review of Systems Const All systems reviewed & are unremarkable except as noted in HPI and below Card Reports as per HPI Resp Reports as per HPI GI Reports as per HPI and Reports no additional complaints Reports as per HPI Physical Exam Vital Signs: Last Vital Signs BP 110/62 02/13/23 07:53 BMI result Body Mass Index 28.8 Const General: cooperative, healthy appearing and comfortable Chest Chest palpation & inspection: normal inspection of the chest and normal palpation of entire chest wall Breast/axilla inspection: normal inspection of the breasts and normal inspection of the axillae Breast/axilla palpation: normal palpation of the breasts, normal palpation of the axillae and no axillary lymphadenopathy Resp Effort & Inspection: normal respiratory effort Auscultation: clear to auscultation bilaterally Percussion: percussion normal Cardio Palpation: normal PMI Rate: regular rate Rhythm: regular rhythm Heart sounds: no murmurs and no rubs Peripheral pulses: Peripheral pulses 2+ throughout GI Inspection: Yes normal to inspection Palpation (GI): Soft to palpation, nontender, no guarding, not rigid and No hepatosplenomegaly present Percussion: Yes normal to percussion Auscultation: normal bowel sounds Rectal Exam - Female: deferred General: Yes bladder normal to palpation External Female Exam: No lesion Speculum Exam - Vagina: normal appearance of the vagina, normal palpation, normal vaginal discharge and not erythematous Speculum Exam - Cervix: normal appearance of the cervix and normal palpation Bimanual exam- vagina & uterus: normal bimanual exam, normal palpation, uterine size normal, bladder normal to palpation, consistency normal and normal palpation Bimanual Exam- Adnexa, other: normal adnexae, no masses and no tenderness Assessment & Plan Assessment & Plan (1) Well woman exam: Code(s): Z01.419 - Encounter for gynecological examination (general) (routine) without abnormal findings Plan: Co testing not indicated since the patient 's age is above 65 with no history of abnormal Pap smears last 25 years. Counseled the patient about the recommended dietary allowance of 1200 mg of Calcium & 800 IU of vitamin D. Mammogram scheduled in few weeks, the patient is up-to-date with her screening colonoscopy done. Will order DEXA scan . The patient was instructed to perform monthly self-breast exams and to schedule a 2 week DEXA scan follow-up appointment and an annual exam in a year; all questions answered and the patient verbalized understanding. Orders: Orders XR DEXA axial skeleton Today N95.1 - Menopausal and female climacteric states Coding Level of Care Code Est Pt Prev Care >65y(72016) Diagnoses Well woman exam Z01.419
[2023-02-13 07:53] VITALS: BP 110/62; BMI 28.8
== END 2023-02-13 08:14 | disposition home or self-care (01) ==
LOC: HO.HWS 07:48
PROVIDERS: PCP Internal Medicine; Visit Provider Obstetrics & Gynecology
DX: Z01.419 Encounter for gynecological examination (general) (routine) without abnormal findings (principal)
CPT/HCPCS: 99397

== ENCOUNTER → 2023-02-13 07:48 | Outpatient (BNVA) | payer BC, SELFPAY | PROVIDERS: PCP Internal Medicine; Visit Provider Obstetrics & Gynecology ==

== ENCOUNTER 2023-02-17 10:25 | Outpatient (AMB) | payer BC, SELFPAY ==
--- NOTE | 2023-02-17 10:29 | A.OFFVIS_ITS ---
Intake Intake Visit Reasons: follow up/US/PVR(set) Intake Note: Patient is present for follow up retention/PVR/ultrasond (imaging 01/04/23) Urology Medications: estrace cream, terazosin Blood Thinner: none PVR:0ml's Physician Interventional Cardiologist Required: No Accompanied by: Self / Same As Patient Allergies amoxicillin Allergy (Intermediate, Verified 02/22/23 07:39) rash Medication List - Last Reconciled 02/22/23 by DEBBIE Burns acetaminophen ER 650 mg PO Q8H PRN calcium carbonate 500 mg PO DAILY cholecalciferol (vitamin D3) 25 mcg PO DAILY diclofenac sodium 0 mg PO estradiol 0.01%(0.1mg/gram) pea-sized to urethra 3 times a week 30 days terazosin 1 mg PO BEDTIME 90 days HPI HPI Comments History of Present Illness Details Vijaya is a pleasant 67-year-old female patient of Dr. Olsen. She presents to the office today for follow-up of recurrent urinary tract infections and incomplete bladder emptying. In discussion with the patient today she reports to be doing and feeling well. Of note, patient was seen approximately 6 weeks ago at which time a retroperitoneal ultrasound was ordered for further assessment evaluation. These results were reviewed with the patient today. Bilateral kidneys with no calculi, lesions, and or hydronephrosis noted. The bladder is well distended and normal. Pre void bladder volume is approximately 630 mL. Postvoid bladder volume is approximately 200 mL. Discussed at length incomplete bladder emptying. Discussed incomplete bladder emptying in the setting of recurrent urinary tract infections. In office urinalysis results reviewed with the patient today. PVR in office today 0ml's. When asked patient reports compliance with Estrace cream and 1 mg of terazosin as prescribed. Discussed at length potential causes for recurrent urinary tract infections. Patient denies any urinary issues or concerns at this time. Patien t denies any UTI like symptoms at this time. When asked she denies urinary urgency, urinary frequency, incontinence, nocturia, hematuria, dysuria, foul smelling urine, changes to urinary stream, flank pain, fever, and or chills. She discusses her upcoming surgery for rotator cuff repair. She otherwise offers no issues or concerns at this time.no issues or concerns at this time. PENDING SALE TO [facility] Medical History GERD (gastroesophageal reflux disease) Vulvar pain Surgical History H/O colonoscopy History of back surgery History of esophagogastroduodenoscopy (EGD) History of tonsillectomy Hx of appendectomy Family History Father Colon cancer Mother HTN (hypertension) Dementia Social History Household Members: Spouse Housing: House Alcohol intake: never Patient Tobacco Use Status: Never used Tobacco Sexual orientation: Straight/Heterosexual Gender identity: Female Female Reproductive History Menstrual Age of Menarche: 12 Review of Systems Const Reports as per HPI Eyes Reports no additional complaints ENT Reports no additional complaints Card Reports no additional complaints Resp Reports no additional complaints GI Reports no additional complaints Reports as per HPI Musc Reports as per HPI Neuro Reports no additional complaints Psych Reports no additional complaints Endo Reports no additional complaints Getachew/Lymph Reports no additional complaints Aller/Immun Reports no additional complaints Physical Exam Const General: cooperative, healthy appearing, comfortable, no acute distress, well developed, alert and awake Orientation/consciousness: patient oriented x3 Limitations: no limitations HEENT Head: Yes normal to inspection, Yes normocephalic and Yes atraumatic Ears: hearing grossly normal bilaterally Eyes General: appearance normal, both eyes and all related structures Neck Neck: Yes normal visual inspection and Yes trachea midline Chest Chest palpation & inspection: normal inspection of the chest Resp Effort & Inspection: normal respiratory effort and able to speak in complete sentences Cardio Rate: regular rate GI Inspection: Yes normal to inspection General: Yes no CVA tenderness Back/Spine/Pelvis Back: no CVA tenderness Skin General skin exam: no rashes or lesions noted Neuro General: patient oriented x3 Extrem General: Yes normal to inspection Psych Appearance: grossly normal and well kempt Mental Status: mental status grossly normal Speech and movement: Normal speech and movement present and Clear speech present Affect: normal affect Attitude: cooperative Thought process: Normal thought process present Thought content: Normal thought content present Insight: Good insight present (Psych) Judgement: Good judgement present (Psych) Office Procedures Post Void Residual Post Residual Void Post Void Residual (PVR): 0 [id number] Void Residual by ultrasound Results AMB Urinalysis, Automated UA Leukoctes 0 Marnie/uL Last Edit by Pocket Changearvin on 02/17/23 10:48 UA Nitrite Last Edit by Pocket Changearvin on 02/17/23 10:48 UA Urobilinogen 0.2 mg/dL Last Edit by ShoutOmaticmanda BioAtlantisarvin on 02/17/23 10:48 UA Protein 0 mg/dL Last Edit by Pocket Changearvin on 02/17/23 10:48 UA pH 6.0 Last Edit by Pocket Changearvin on 02/17/23 10:48 UA Blood 0 Lokesh/uL Last Edit by Pocket Changearvin on 02/17/23 10:48 UA Specific [place] 1.020 Last Edit by Reelation on 02/17/23 10:48 UA Ketone Negative Last Edit by Pocket Changearvin on 02/17/23 10:48 UA Bilirubin 0 mg/dL Last Edit by Pocket Changearvin on 02/17/23 10:48 UA Glucose 0 mg/dL Last Edit by Pocket Changearvin on 02/17/23 10:48 Results Reviewed Results Reviewed: Laboratory Last Values Urine pH (Auto) 6.0 02/17/23 10:47 Specific [place] (Auto) 1.020 02/17/23 10:47 Urine Protein (Auto) 0 mg/dL 02/17/23 10:47 Glucose (UA)(Auto) 0 mg/dL 02/17/23 10:47 Urine Ketones (Auto) Negative 02/17/23 10:47 Urine Blood (Auto) 0 Lokesh/uL 02/17/23 10:47 Urine Bilirubin (Auto) 0 mg/dL 02/17/23 10:47 Urine Urobilinogen (Auto) 0.2 mg/dL 02/17/23 10:47 Leukocyte Esterase (Auto) 0 Manrie/uL 02/17/23 10:47 Date of Service: 01/04/23 Procedure(s): US retroperitoneal comp FINDINGS: RIGHT KIDNEY: 10.5 x 4.0 x 5.8 cm (SAG x AP x TRV). The kidney is normal in size, contour, and echogenicity. Renal cortical thickness is normal. No calculi or focal parenchymal lesions. No hydronephrosis. LEFT KIDNEY: 10.3 x 5.7 x 5.2 cm (SAG x AP x TRV). The kidney is normal in size, contour, and echogenicity. Renal cortical thickness is normal. No calculi or focal parenchymal lesions. No hydronephrosis. BLADDER: Well distended and normal. Bilateral ureteral jets are demonstrated. Prevoid bladder volume is 624 mL. Postvoid bladder volume is 193 mL. IMPRESSION: 1.? Large postvoid bladder residual of 193 mL. 2.? Unremarkable sonographic appearance of the kidneys. Assessment & Plan Assessment & Plan (1) Recurrent UTI: Code(s): N39.0 - Urinary tract infection, site not specified (2) Urinary retention with incomplete bladder emptying: Code(s): R33.9 - Retention of urine, unspecified Plan In office urinalysis results reviewed with the patient today; as noted above. PVR 0 mL. Recent retroperitoneal ultrasound results reviewed with the patient today; as noted above. Discussed at length affects of incomplete bladder emptying in relation to recurrent urinary tract infections. Discussed at length potential causes for recurrent urinary tract infections. Continue terazosin and Estrace cream as discussed and prescribed. Discussed double voiding. Discussed UTI prevention with D mannose supplement, vitamin-C, increasing fluid intake, behavioral therapy with timed voiding, perineal hygiene and postcoital voiding, and management of constipation with stool softeners and increased fiber intake. Discussed methanamine and vitamin C versus low dose antibiotic therapy for suppression. Discussed near future in office cystoscopy if symptoms persist and/or worsen. Follow-up in 6 months if not sooner with any issues, concerns, or questions. Orders: Orders AMB Urinalysis Automated 02/17/23 Z13.9 - Encounter for screening, unspecified AMB Post Void Residual by ultrasound 02/17/23 N39.0 - Urinary tract infection, site not specified Medications: Changed From terazosin 1 mg PO BEDTIME 30 days 30 caps 1RF R39.12 - Poor urinary stream To terazosin 1 mg PO BEDTIME 90 days 90 caps 1RF R39.12 - Poor urinary stream Patient Instructions: The patient had an opportunity to ask questions regarding the treatment plan. All questions were answered. Physical exam, labs, and imaging were discussed and reviewed in detail. As well as risks, benefits, and discussion of treatment choices. No major barriers to understanding were identified. The patient expressed understanding and agreement with the above treatment plan. The patient was made aware they should contact our office by phone for worsening of their current condition, the appearance of new symptoms, or with any questions or concerns. Compliance is encouraged with any medications and follow up testing that is ordered. It is a privilege to be allowed the opportunity to participate in? your urological care.? Again, if you have any questions or concerns If you have any questions or concerns please do not hesitate to contact me. The office is [phone]. This note is constructed using voice recognition software. While every effort has been made to ensure accuracy tank erector errors may have been included. Yours sincerely, SYDNIE Burns- Coding Level of Care Code Est Pt Level 3 (64775) Diagnoses Recurrent UTI N39.0 Urinary retention with incomplete bladder emptying R33.9 CPT Codes Post Residual Void - PVR CPT Code: 00077-Cqbx Void Residual by ultrasound ([id number])
== END 2023-02-17 11:16 | disposition home or self-care (01) ==
PROVIDERS: PCP Internal Medicine; Visit Provider Nurse Practitioner Family
DX: N39.0 Urinary tract infection, site not specified (principal); R33.9 Retention of urine, unspecified
CPT/HCPCS: 99213

== ENCOUNTER → 2023-02-17 10:25 | Outpatient (BNVA) | payer BC, SELFPAY | PROVIDERS: PCP Internal Medicine; Visit Provider Nurse Practitioner Family | DX: N39.0 Urinary tract infection, site not specified (principal); R33.9 Retention of urine, unspecified; Z79.899 Other long term (current) drug therapy | CPT/HCPCS: 51798 ==

== ENCOUNTER 2023-04-13 07:53 | Outpatient (REF) | payer BC, SELFPAY ==
--- NOTE | ~2023-04-13 | MM_ITS ---
EXAMINATION: BONE DENSITOMETRY CLINICAL INDICATION: Menopause. COMPARISON: Previous BD dated 04/07/2021 and baseline BD dated 03/31/2017. TECHNIQUE: Using a Talkray DXA System (software version: 13.1) manufactured by [employer], dual-energy x-ray absorptiometry was performed of the lumbar spine and left hip. The images are of good technical quality. Summary results are attached. FINDINGS: LEFT FEMUR, NECK: Current: BMD 0.914 g/cm2, Z-score 0.2, T-score -0.9, normal. Prior: BMD 0.906 g/cm2. Baseline: BMD 0.922 g/cm2. LEFT FEMUR, TOTAL: Current: BMD 0.981 g/cm2, Z-score 0.6, T-score -0.2, normal, 3.0% decrease from previous, 4.9% decrease from baseline (<5% change is not significant). Prior: BMD 1.011 g/cm2. Baseline: BMD 1.032 g/cm2. AP SPINE L1-L4: Current: BMD 1.124 g/cm2, Z-score 0.4, T-score -0.5, normal, 8.8% decrease from previous, 7.9% decrease from baseline (<5% change is not significant). Prior: BMD 1.232 g/cm2. Baseline: BMD 1.221 g/cm2. IDENTIFIED RISK FACTORS: Menopause, secondary osteoporosis. HISTORY OF FRACTURE: None listed. MEDICATIONS: Calcium or multivitamin. Vitamin D. MM/XR DEXA axial skeleton IMPRESSION: 1. DIAGNOSIS: Normal bone density based on the lowest T-score value of -0.9 in the lumbar spine applying World Health Organization criteria. 2. 10-YEAR FRACTURE RISK PREDICTION, FRAX: According to the guidelines, FRAX calculation should only be performed on patients in the osteopenia bone density category. Therefore, FRAX was not performed on this patient. 3. Treatment Recommendations: NOF guidelines recommend consideration for treatment in postmenopausal women and men age 50 and older presenting with the following: -A hip or vertebral (clinical or morphometric) fracture. -T-score less than or equal to -2.5 at the femoral neck or spine after appropriate evaluation to exclude secondary causes. -Low bone mass at the hip or spine and a 10-year fracture probability by FRAX of greater than or equal to 3% for hip fracture or greater than or equal to 20% for major osteoporotic fracture based on the [place] adapted WHO algorithm. 4. Other Recommendations: All treatment decisions require clinical judgment and consideration of individual patient factors, including patient preferences, comorbidities, previous drug use, risk factors not captured in the FRAX model (e.g. frailty, falls, vitamin D deficiency, increased bone turnover, interval significant decline in bone density) and possible under or overestimation of fracture risk by FRAX. FUTURE SCAN RECOMMENDATION: People with diagnosed cases of osteoporosis or at high risk for fracture should have regular bone mineral density tests. For patients eligible for Medicare, routine testing is allowed once every 2 years. The testing frequency can be increased to one year for patients who have rapidly progressing disease, those who are receiving or discontinuing medical therapy to restore bone mass, or have additional risk factors.
== END 2023-04-13 07:54 | disposition home or self-care (01) ==
LOC: HO.MAMMO 07:53
PROVIDERS: PCP Internal Medicine; Visit Provider Obstetrics & Gynecology
DX: Z13.820 Encounter for screening for osteoporosis (principal); Z78.0 Asymptomatic menopausal state
CPT/HCPCS: 77080

== ENCOUNTER 2023-05-01 07:55 | Outpatient (REF) | payer BC, SELFPAY | END 2023-05-01 07:56 | disposition home or self-care (01) | LOC: HO.MAMMO 07:55 | PROVIDERS: PCP Internal Medicine; Visit Provider Internal Medicine | DX: Z12.31 Encounter for screening mammogram for malignant neoplasm of breast (principal) | CPT/HCPCS: 77063; 77067 ==

== ENCOUNTER → 2023-05-01 08:00 | Outpatient (BNV) | payer BC, SELFPAY | PROVIDERS: PCP Internal Medicine; Visit Provider Radiology Diagnostic Radiology | DX: Z12.31 Encounter for screening mammogram for malignant neoplasm of breast (principal) | CPT/HCPCS: 77063; 77067 ==

== ENCOUNTER 2023-05-29 07:46 | Outpatient (AMB) | payer BC, SELFPAY ==
--- NOTE | 2023-05-29 07:47 | A.OFFVIS_ITS ---
Intake Intake Visit Reasons: TV Dexa results Direct Chill Casting Operator Required: No Information Interpreted: non-clinical & clinical Allergies amoxicillin Allergy (Intermediate, Verified 05/29/23 07:48) rash HPI HPI Comments History of Present Illness Details The patient schedule it tele health visit for follow up regarding DEXA scan results. T score @ spine and femoral Neck respectively were=-0.5 /-0.9 and 10 year FRAX risk was not calculated PFSH Medical History Vulvar pain GERD (gastroesophageal reflux disease) Surgical History History of esophagogastroduodenoscopy (EGD) H/O colonoscopy History of back surgery History of tonsillectomy Hx of appendectomy Family History Father Colon cancer Mother HTN (hypertension) Dementia Social History Household Members: Spouse Housing: House Alcohol intake: never Patient Tobacco Use Status: Never used Tobacco Sexual orientation: Straight/Heterosexual Gender identity: Female Female Reproductive History Menstrual Age of Menarche: 12 Review of Systems Const All systems reviewed & are unremarkable except as noted in HPI and below Reports as per HPI and Reports no additional complaints GI Reports no additional complaints Reports no additional complaints Assessment & Plan Assessment & Plan (1) Osteopenia: Code(s): M85.80 - Other specified disorders of bone density and structure, unspecified site Plan: Discussed with the patient the DEXA results , T score showed no evidence of osteoporosis. Discussed with the patient all the options for osteoporosis pre vention including lifestyle modifications including Ca+D supplements 1200 mg po qd/800 MIU, Weight bearing exercises and proteine supplements. The patient verbalized understanding and agreed plan will repeat DEXA in 2 years. I spent a total of 20 minutes reviewing the chart, talking to the patient via video and documenting in the medical record. Telehealth Telehealth Location of provider rendering services: practice address Location of patient: address on file Patient Identification confirmed using: Name, : Yes Telehealth method: video Patient verbally consented to treatment: Yes Patient verbally consented to billing insurance company: Yes Patient informed of any privacy concerns related to visit: Yes Coding Level of Care Code Tele Est Pt Level 3 (53584) Diagnoses Osteopenia M85.80
== END 2023-05-29 09:55 | disposition home or self-care (01) ==
LOC: HO.HWS 07:46
PROVIDERS: PCP Internal Medicine; Visit Provider Obstetrics & Gynecology
DX: M85.80 Other specified disorders of bone density and structure, unspecified site (principal)
CPT/HCPCS: 99213

== ENCOUNTER → 2023-05-29 07:46 | Outpatient (BNVA) | payer BC, SELFPAY | PROVIDERS: PCP Internal Medicine; Visit Provider Obstetrics & Gynecology ==

== ENCOUNTER 2023-07-06 14:18 | Outpatient (REF) | payer BC, SELFPAY ==
[2023-07-06 16:46] LABS: Appearance Urine Turbid; Color Urine Yellow; Glucose Urine UA Negative (Negative); Leukocyte Esterase Urine Moderate (2+) (Negative); Nitrite Urine Positive (Negative); PH 5.5 (5.0-9.0); UMIC TRIGGER UA YES; Urine Blood Small (1+) (Negative); Urine Ketones Negative (Negative); Urine Protein Trace mg/dL (Neg-Trace)
[2023-07-06 18:00] LABS: Bacteria Urine 4+ (None Seen); Hyaline Casts Urine 0-2 /LPF (0-2); RBC Urine 0-2 /HPF (0-2); Squamous Epithelial Cell Urine 0-2 /HPF (0-2); WBC Urine >50 /HPF (0-5)
== END 2023-07-06 14:19 | disposition home or self-care (01) ==
LOC: HO.HMGCLDS 14:18
PROVIDERS: PCP Internal Medicine; Visit Provider Nurse Practitioner Family
DX: N39.0 Urinary tract infection, site not specified (principal)
CPT/HCPCS: 81001; 87086; 87088; 87186

== ENCOUNTER 2023-08-21 09:11 | Outpatient (AMB) | payer BC, SELFPAY ==
--- NOTE | 2023-08-21 09:20 | A.OFFVIS_ITS ---
Intake Intake Visit Reasons: 6m/PVR Intake Note: Patient is present for follow up retention and recurrent uti's Urology Medications: estrace cream, terazosin Blood Thinner: none PVR:0ml's Seed Cleaner Operator Required: No Accompanied by: Self / Same As Patient Allergies amoxicillin Allergy (Intermediate, Verified 08/21/23 09:51) rash Medication List - Last Reconciled 08/21/23 by SYDNIE Burns- acetaminophen ER 650 mg PO Q8H PRN calcium carbonate 500 mg PO DAILY cholecalciferol (vitamin D3) 25 mcg PO DAILY diclofenac sodium 0 mg PO estradiol 0.01%(0.1mg/gram) pea-sized to urethra 3 times a week 30 days nitrofurantoin monohyd/m-cryst 100 mg (Macrobid) 100 mg PO Q12H 14 days terazosin 1 mg PO BEDTIME 90 days HPI HPI Comments History of Present Illness Details Vijaya is a pleasant 68-year-old female patient of Dr. Olsen. She presents to the office today for follow-up of recurrent urinary tract infections and incomplete bladder emptying. In discussion with the patient today she reports to be doing and feeling well. Since her last visit here approximately 6 months ago she has had one urinary tract infection which was last month. In review of patient's chart it appears urine culture with E coli she has since been treated and feeling well. She reports feeling UTI presented itself as she did not follow her typical routine after sexual intercourse. She currently denies any bothersome urinary issues or concerns. In office uri nalysis results reviewed with the patient today. PVR 0 mL. She reports compliance with Estrace cream as prescribed as well as 1 mg of terazosin daily. She currently denies any UTI like symptoms. Previous workup has included a retroperitoneal ultrasound noting bilateral kidneys with no calculi, lesions, and or hydronephrosis noted. The bladder is well distended and normal. Pre void bladder volume is approximately 630 mL. Postvoid bladder volume is approximately 200 mL. When asked she denies urinary urgency, urinary frequency, incontinence, nocturia, hematuria, dysuria, foul smelling urine, changes to urinary stream, flank pain, fever, and or chills. She discusses her She otherwise offers no issues or concerns at this time.no issues or concerns at this time. [facility] Medical History Vulvar pain GERD (gastroesophageal reflux disease) Surgical History History of esophagogastroduodenoscopy (EGD) H/O colonoscopy History of back surgery History of tonsillectomy Hx of appendectomy Family History Father Colon cancer Mother HTN (hypertension) Dementia Social History Household Members: Spouse Housing: House Alcohol intake: never Patient Tobacco Use Status: Never used Tobacco Sexual orientation: Straight/Heterosexual Gender identity: Female Female Reproductive History Menstrual Age of Menarche: 12 Review of Systems Const Reports as per HPI Eyes Reports no additional complaints ENT Reports no additional complaints Card Reports no additional complaints Resp Reports no additional complaints GI Reports no additional complaints Reports as per HPI Musc Reports as per HPI Neuro Reports no additional complaints Psych Reports no additional complaints Endo Reports no additional complaints Getachew/Lymph Reports no additional complaints Aller/Immun Reports no additional complaints Physical Exam Const General: cooperative, healthy appearing, comfortable, no acute distress, well developed, alert and awake Orientation/consciousness: patient oriented x3 Limitations: no limitations HEENT Head: Yes normal to inspection, Yes normocephalic and Yes atraumatic Ears: hearing grossly normal bilaterally Eyes General: appearance normal, both eyes and all related structures Neck Neck: Yes normal visual inspection and Yes trachea midline Chest Chest palpation & inspection: normal inspection of the chest Resp Effort & Inspection: normal respiratory effort and able to speak in complete sentences Cardio Rate: regular rate GI Inspection: Yes normal to inspection General: Yes no CVA tenderness Back/Spine/Pelvis Back: no CVA tenderness Skin General skin exam: no rashes or lesions noted Neuro General: patient oriented x3 Extrem General: Yes normal to inspection Psych Appearance: grossly normal and well kempt Mental Status: mental status grossly normal Speech and movement: Normal speech and movement present and Clear speech present Affect: normal affect Attitude: cooperative Thought process: Normal thought process present Thought content: Normal thought content present Insight: Good insight present (Psych) Judgement: Good judgement present (Psych) Office Procedures Post Void Residual Post Residual Void Post Void Residual (PVR): 0 [id number] Void Residual by ultrasound Results AMB Urinalysis, Automated UA Leukoctes 0 Marnie/uL Last Edit by Ariadna Cuello on 08/21/23 09:35 UA Nitrite Negative Last Edit by Ariadna Cuello on 08/21/23 09:35 UA Urobilinogen 0.2 mg/dL Last Edit by Ariadna Cuello on 08/21/23 09:35 UA Protein 0 mg/dL Last Edit by Ariadna Cuello on 08/21/23 09:35 UA pH 6.0 Last Edit by Ariadna Cuello on 08/21/23 09:35 UA Blood 0 Lokesh/uL Last Edit by Basiae Khushboo on 08/21/23 09:35 UA Specific [place] 1.015 Last Edit by Ariadna Cuello on 08/21/23 09:35 UA Ketone Negative Last Edit by Ariadna Cuello on 08/21/23 09:35 UA Bilirubin 0 mg/dL Last Edit by Ariadna Cuello on 08/21/23 09:35 UA Glucose 0 mg/dL Last Edit by Ariadna Cuello on 08/21/23 09:35 Results Reviewed Results Reviewed: Laboratory Last Values Urine pH (Auto) 6.0 08/21/23 09:25 Specific [place] (Auto) 1.015 08/21/23 09:25 Urine Protein (Auto) 0 mg/dL 08/21/23 09:25 Glucose (UA)(Auto) 0 mg/dL 08/21/23 09:25 Urine Ketones (Auto) Negative 08/21/23 09:25 Urine Blood (Auto) 0 Lokesh/uL 08/21/23 09:25 Urine Nitrite (Auto) Negative 08/21/23 09:25 Urine Bilirubin (Auto) 0 mg/dL 08/21/23 09:25 Urine Urobilinogen (Auto) 0.2 mg/dL 08/21/23 09:25 Leukocyte Esterase (Auto) 0 Marnie/uL 08/21/23 09:25 Assessment & Plan Assessment & Plan (1) Recurrent UTI: Code(s): N39.0 - Urinary tract infection, site not specified (2) Urinary retention with incomplete bladder emptying: Code(s): R33.9 - Retention of urine, unspecified Plan In office urinalysis results reviewed with the patient today; as noted above. PVR 0 mL. . Discussed at length potential causes for recurrent urinary tract infections. Continue terazosin and Estrace cream as discussed and prescribed; refills provided. Discussed UTI prevention with D mannose supplement, vitamin-C, increasing fluid intake, behavioral therapy with timed voiding, perineal hygiene and postcoital voiding, and management of constipation with stool softeners and increased fiber intake. Will attempt to discontinue terazosin prior to next appointment to further assess efficacy. Discussed standing orders given UTI over the weekend; medication provided Follow-up in 6 months if not sooner with any issues, concerns, or questions. 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 All questions were answered. Physical exam, labs, and imaging were discussed and reviewed in detail. As well as risks, benefits, and discussion of treatment choices. No major barriers to understanding were identified. The patient expressed understanding and agreement with the above treatment plan. The patient was made aware they should contact our office by phone for worsening of their current condition, the appearance of new symptoms, or with any questions or concerns. Compliance is encouraged with any medications and follow up testing that is ordered. It is a privilege to be allowed the opportunity to participate in? your urological care.? Again, if you have any questions or concerns If you have any questions or concerns please do not hesitate to contact me. The office is [phone]. This note is constructed using voice recognition software. While every effort has been made to ensure accuracy power transformer inspector errors may have been included. Yours sincerely, DEBBIE Burns Coding Level of Care Code Est Pt Level 4 (53410) Diagnoses Recurrent UTI N39.0 Urinary retention with incomplete bladder emptying R33.9 CPT Codes Post Residual Void - PVR CPT Code: 12215-Tpbn Void Residual by ultrasound ([id number])
== END 2023-08-21 09:52 | disposition home or self-care (01) ==
PROVIDERS: PCP Internal Medicine; Visit Provider Nurse Practitioner Family
DX: N39.0 Urinary tract infection, site not specified (principal); R33.9 Retention of urine, unspecified; Z13.9 Encounter for screening, unspecified
CPT/HCPCS: 99214

== ENCOUNTER → 2023-08-21 09:11 | Outpatient (BNVA) | payer BC, SELFPAY | PROVIDERS: PCP Internal Medicine; Visit Provider Nurse Practitioner Family | DX: N39.0 Urinary tract infection, site not specified (principal); R33.9 Retention of urine, unspecified; Z79.899 Other long term (current) drug therapy | CPT/HCPCS: 51798; 81003 ==

== ENCOUNTER 2023-12-02 07:06 | Outpatient (REF) | payer BC, SELFPAY ==
[2023-12-02 11:24] LABS: Estimated Average Glucose 94 mg/dL; Hemoglobin A1c % 4.9 % (<6.0)
[2023-12-02 11:35] LABS: Alanine Aminotransferase 12 U/L (0-31); Albumin Level 4.3 g/dL (3.5-5.0); Alkaline Phosphatase 65 U/L (39-117); Anion Gap 14 (12-20); Aspartate Amino Transferase 20 U/L (5-31); Bilirubin Total 0.7 mg/dL (0.0-1.0); Blood Urea Nitrogen 19 mg/dL (9-16); Calcium 9.6 mg/dL (8.4-10.2); Carbon Dioxide 23 mmol/L (22-29); Chloride 109 mmol/L (96-108); Cholesterol 185 mg/dL (<200); Estimated Glomerular Filt Rate > 60; Glucose Random 95 mg/dL (60-115); HDL Cholesterol 56 mg/dL (>40); LDL Cholesterol Calculated 118 mg/dL (<100); Potassium 4.2 mmol/L (3.3-5.1); Sodium 142 mmol/L (135-145); Triglycerides 57 mg/dL (<150)
[2023-12-02 11:53] LABS: TSH reflex Free T4 2.01 uIU/mL (0.32-4.0)
== END 2023-12-02 07:07 | disposition home or self-care (01) ==
LOC: HO.HMGCLDS 07:06
PROVIDERS: PCP Internal Medicine; Visit Provider Internal Medicine
DX: E78.00 Pure hypercholesterolemia, unspecified (principal); R73.01 Impaired fasting glucose; E55.9 Vitamin D deficiency, unspecified
CPT/HCPCS: 36415; 80053; 80061; 82306; 83036; 84443

== ENCOUNTER 2024-02-20 07:55 | Outpatient (AMB) | payer BC, SELFPAY ==
--- NOTE | 2024-02-20 08:01 | A.OFFVIS_ITS ---
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 No complaints. Last Pap/HPV was negative in 01/11, this was preceded by negative co testing in 09/08 Last Mammogram was BI-RADS 1 in 05/15 Last Colonoscopy was in 04/14, the recommendation was to repeat in 5 years Last DEXA scan was in 04/15 and was in the low risk category PFSH Medical History Vulvar pain GERD (gastroesophageal reflux disease) Surgical History (Updated 02/20/24 @ 08:07 by Marilyn Carter CMA) Hx of rotator cuff surgery History of esophagogastroduodenoscopy (EGD) H/O colonoscopy History of back surgery History of tonsillectomy Hx of appendectomy Family History Father Colon cancer Mother HTN (hypertension) Dementia Social History (Updated 02/20/24 @ 08:08 by Marilyn Carter CMA) Household Members: Spouse Housing: House Alcohol intake: never Patient Tobacco Use Status: Never used Tobacco Current occupational status: employed 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 Sexual orientation: Straight/Heterosexual Gender identity: Female Female Reproductive History Menstrual Age of Menarche: 12 Total pregnancies: 1 Full term: 1 Number of Living Children: 1 Date of last pap smear: 01/07/21 Date of Mammogram: 06/01/23 Review of Systems Const All systems reviewed & are unremarkable except as noted in HPI and below Card Reports as per HPI Resp Reports as per HPI GI Reports as per HPI and Reports no additional complaints Reports as per HPI Physical Exam Vital Signs: Last Vital Signs BP 110/66 02/20/24 08:04 BMI result Body Mass Index 28.4 Const General: cooperative, healthy appearing and comfortable Chest Chest palpation & inspection: normal inspection of the chest and normal palpation of entire chest wall Breast/axilla inspection: normal inspection of the breasts and normal inspection of the axillae Breast/axilla palpation: normal palpation of the breasts, normal palpation of the axillae and no axillary lymphadenopathy Resp Effort & Inspection: normal respiratory effort Auscultation: clear to auscultation bilaterally Percussion: percussion normal Cardio Palpation: normal PMI Rate: regular rate Rhythm: regular rhythm Heart sounds: no murmurs and no rubs Peripheral pulses: Peripheral pulses 2+ throughout GI Inspection: Yes normal to inspection Palpation (GI): Soft to palpation, nontender, no guarding, not rigid and No hepatosplenomegaly present Percussion: Yes normal to percussion Auscultation: normal bowel sounds Rectal Exam - Female: deferred General: Yes bladder normal to palpation External Female Exam: No lesion Speculum Exam - Vagina: normal appearance of the vagina, normal palpation, normal vaginal discharge and not erythematous Speculum Exam - Cervix: normal appearance of the cervix and normal palpation Bimanual exam- vagina & uterus: normal bimanual exam, normal palpation, uterine size normal, bladder normal to palpation, consistency normal and normal palpation Bimanual Exam- Adnexa, other: normal adnexae, no masses and no tenderness Assessment & Plan Assessment & Plan (1) Well woman exam: Code(s): Z01.419 - Encounter for gynecological examination (general) (routine) without abnormal findings Category: Medical Plan: Co testing not indicated since the patient 's age is above 65 with no history of abnormal Pap smears last 25 years. Counseled the patient about the recommended dietary allowance of 1200 mg of Calcium & 800 IU of vitamin D. Instructions given the patient to schedule next screen Mammogram in 05/16. The patient was instructed to perform monthly self-breast exams and to schedule a 2 week DEXA scan follow-up appointment and an annual exam in a year; All questions answered and the patient verbalized understanding. Coding Level of Care Code Est Pt Prev Care >65y(78406) Diagnoses Well woman exam Z01.419
[2024-02-20 08:04] VITALS: BP 110/66; BMI 28.4
== END 2024-02-20 08:26 | disposition home or self-care (01) ==
LOC: HO.HWS 07:55
PROVIDERS: PCP Internal Medicine; Visit Provider Obstetrics & Gynecology
DX: Z01.419 Encounter for gynecological examination (general) (routine) without abnormal findings (principal)
CPT/HCPCS: 99397

== ENCOUNTER → 2024-02-20 07:55 | Outpatient (BNVA) | payer BC, SELFPAY | PROVIDERS: PCP Internal Medicine; Visit Provider Obstetrics & Gynecology ==

== ENCOUNTER 2024-02-26 08:09 | Outpatient (AMB) | payer BC, SELFPAY ==
--- NOTE | 2024-02-26 08:33 | MHC.OFFVIS ---
Intake Visit Reasons: 6m/PVR Intake Note: Patient is present for follow up retention and recurrent uti's Urology Medications: estrace cream, terazosin (D/C x 1 month) Blood Thinner: none PVR: 152ml's Can Pusher Required: No Accompanied by: Self / Same As Patient Allergies amoxicillin Allergy (Intermediate, Verified 02/26/24 09:48) rash Medication List - Last Reconciled 02/26/24 by DEBBIE Burns acetaminophen ER 650 mg PO Q8H PRN calcium carbonate 500 mg PO DAILY cholecalciferol (vitamin D3) 25 mcg PO DAILY estradiol 0.01%(0.1mg/gram) pea-sized to urethra 3 times a week 30 days minocycline mg PO DAILY HPI Comments Details: Vijaya is a pleasant 68-year-old female patient of Dr. Olsen. She presents to the office today for follow-up of recurrent urinary tract infections and incomplete bladder emptying. In discussion with the patient today she reports to be doing and feeling well. She reports since her last office visit here approximately 6 months ago she has not had any bothersome urinary issues or concerns. She has not had any UTI like symptoms and or urinary tract infections. She reports having stopped her low-dose terazosin approximately 1 month ago. She reports compliance with Estrace cream as prescribed. In office urinalysis results reviewed with the patient today. PVR 152 mLs. Previous workup has included a retroperitoneal ultrasound noting bilateral kidneys with no calculi, lesions, and or hydronephrosis noted. The bladder is well distended and normal. Pre void bladder volume is approximately 630 mL. Postvoid bladder volume is approximately 200 mL. When asked she denies urinary urgency, urinary frequency, incontinence, nocturia, hematuria, dysuria, foul smelling urine, changes to urinary stream, flank pain, fever, and or chills. Discussed at length potential causes and affects of incomplete bladder emptying. She currently denies any bothersome urinary issues or concerns. She otherwise offers no issues or concerns at this time. 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 Sexual orientation: Straight/Heterosexual Gender identity: Female Female Reproductive History Menstrual Age of Menarche: 12 Review of Systems Const Reports as per HPI Eyes Reports no additional complaints ENT Reports no additional complaints Card Reports no additional complaints Resp Reports no additional complaints GI Reports no additional complaints Reports as per HPI Musc Reports as per HPI Neuro Reports no additional complaints Psych Reports no additional complaints Endo Reports no additional complaints Getachew/Lymph Reports no additional complaints Aller/Immun Reports no additional complaints Physical Exam Const General: cooperative, healthy appearing, comfortable, no acute distress, well developed, alert and awake Orientation/consciousness: patient oriented x3 Limitations: no limitations HEENT Head: Yes normal to inspection, Yes normocephalic and Yes atraumatic Ears: hearing grossly normal bilaterally Eyes General: appearance normal, both eyes and all related structures Neck Neck: Yes normal visual inspection and Yes trachea midline Chest Chest palpation & inspection: normal inspection of the chest Resp Effort & Inspection: normal respiratory effort and able to speak in complete sentences Cardio Rate: regular rate GI Inspection: Yes normal to inspection General: Yes no CVA tenderness Back/Spine/Pelvis Back: no CVA tenderness Skin General skin exam: no rashes or lesions noted Neuro General: patient oriented x3 Extrem General: Yes normal to inspection Psych Appearance: grossly normal and well kempt Mental Status: mental status grossly normal Speech and movement: Normal speech and movement present and Clear speech present Affect: normal affect Attitude: cooperative Thought process: Normal thought process present Thought content: Normal thought content present Insight: Good insight present (Psych) Judgement: Good judgement present (Psych) Office Procedures Post Void Residual Post Residual Void Post Void Residual (PVR): 152 [id number]-[id number] Void Residual by ultrasound Results AMB Urinalysis, Automated UA Leukoctes 0 Marnie/uL Last Edit by Ariadna Cuello on 02/26/24 08:46 UA Nitrite Last Edit by Ariadna Cuello on 02/26/24 08:46 UA Urobilinogen 0.2 mg/dL Last Edit by Ariadna Barneyarvin on 02/26/24 08:46 UA Protein 0 mg/dL Last Edit by Ariadna Barneyarvin on 02/26/24 08:46 UA pH 6.0 Last Edit by Ariadna Barneyarvin on 02/26/24 08:46 UA Blood 0 Lokesh/uL Last Edit by Powerbrendamanda Barneyarvin on 02/26/24 08:46 UA Specific [place] 1.010 Last Edit by Ariadna Barneyarvin on 02/26/24 08:46 UA Ketone Negative Last Edit by Ariadna Barneyarvin on 02/26/24 08:46 UA Bilirubin 0 mg/dL Last Edit by Ariadna Barneyarvin on 02/26/24 08:46 UA Glucose 0 mg/dL Last Edit by Basiamanda Savitaarvin on 02/26/24 08:46 Results Reviewed Results Reviewed: Laboratory Last Values Urine pH (Auto) 6.0 02/26/24 08:45 Specific [place] (Auto) 1.010 02/26/24 08:45 Urine Protein (Auto) 0 mg/dL 02/26/24 08:45 Glucose (UA)(Auto) 0 mg/dL 02/26/24 08:45 Urine Ketones (Auto) Negative 02/26/24 08:45 Urine Blood (Auto) 0 Lokesh/uL 02/26/24 08:45 Urine Bilirubin (Auto) 0 mg/dL 02/26/24 08:45 Urine Urobilinogen (Auto) 0.2 mg/dL 02/26/24 08:45 Leukocyte Esterase (Auto) 0 Marnie/uL 02/26/24 08:45 Assessment & Plan Assessment & Plan (1) Recurrent UTI: Code(s): N39.0 - Urinary tract infection, site not specified Category: Medical (2) Urinary retention with incomplete bladder emptying: Code(s): R33.9 - Retention of urine, unspecified Category: Medical Plan In office urinalysis results reviewed with the patient today; as noted above. PVR 152 mL. . Discussed at length potential causes for recurrent urinary tract infections as well as causes and affects of incomplete bladder emptying Continue Estrace cream as discussed and prescribed. Discussed UTI prevention with D mannose supplement, vitamin-C, increasing fluid intake, behavioral therapy with timed voiding, perineal hygiene and postcoital voiding, and management of constipation with stool softeners and increased fiber intake. Discussed lifestyle modifications to assist with incomplete bladder emptying such as double voiding. Stop terazosin as patient would like to trial coming off of medication. Follow-up in 3 months with PVR; if not sooner with any issues, concerns, or questions. Orders: Orders AMB Post Void Residual by ultrasound Today R33.9 - Retention of urine, unspecified AMB Urinalysis Automated Today Z13.9 - Encounter for screening, unspecified Patient Instructions: The patient had an opportunity to ask questions regarding the treatment plan. All questions were answered. Physical exam, labs, and imaging were discussed and reviewed in detail. As well as risks, benefits, and discussion of treatment choices. No major barriers to understanding were identified. The patient expressed understanding and agreement with the above treatment plan. The patient was made aware they should contact our office by phone for worsening of their current condition, the appearance of new symptoms, or with any questions or concerns. Compliance is encouraged with any medications and follow up testing that is ordered. It is a privilege to be allowed the opportunity to participate in? your urological care.? Again, if you have any questions or concerns If you have any questions or concerns please do not hesitate to contact me. The office is [phone]. This note is constructed using voice recognition software. While every effort has been made to ensure accuracy medical scientific liaison errors may have been included. Yours sincerely, DEBBIE Burns Coding Level of Care Code Est Pt Level 3 (56720) Complex EM visit Add On G2211 Diagnoses Recurrent UTI N39.0 Urinary retention with incomplete bladder emptying R33.9 CPT Codes Post Residual Void - PVR CPT Code: 59978-Yqle Void Residual by ultrasound ([id number])
== END 2024-02-26 08:58 | disposition home or self-care (01) ==
PROVIDERS: PCP Internal Medicine; Visit Provider Nurse Practitioner Family
DX: N39.0 Urinary tract infection, site not specified (principal); R33.9 Retention of urine, unspecified; Z13.9 Encounter for screening, unspecified
CPT/HCPCS: 99213

== ENCOUNTER → 2024-02-26 08:09 | Outpatient (BNVA) | payer BC, SELFPAY | PROVIDERS: PCP Internal Medicine; Visit Provider Nurse Practitioner Family | DX: N39.0 Urinary tract infection, site not specified (principal); R33.9 Retention of urine, unspecified | CPT/HCPCS: 51798; 81003 ==

== ENCOUNTER 2024-03-14 08:03 | Outpatient (AMB) | payer BC, SELFPAY ==
[2024-03-14 08:04] VITALS: BP 112/74; PULSE 59; TEMP 36.8; O2SAT 98; BMI 28.8
--- NOTE | 2024-03-14 08:04 | MHC.OFFWIV ---
Intake Vital Signs 03/14/24 08:04 Height 5 ft 9 in Weight 195 lb BMI 28.8 BP 112/74 Blood Pressure Location Rt brachial Position Sitting Pulse 59 Pulse Source Pulse Oximeter Temp 98.2 F Temp Source Oral Pulse Oximetry (%) 98 Oxygen Delivery Method Room Air Intake Visit Reasons: EP- Rash/ poison april spreading around face Intake Note: pt c/o poison april rash. Started last week Patient Tobacco Use Status: Never used Tobacco Allergies amoxicillin Allergy (Intermediate, Verified 03/14/24 08:07) rash HPI HPI Comments History of Present Illness Details 68 y/o female patient who presents to the walk in clinic with c/o Rash on both upper arms, neck and face. Describes the rash has very itchy, burning and spreading. She has been using Zrytec BID with good relief. 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 General skin exam: dry skin and erythema Rashes: rashes noted Neuro General: patient oriented x3, gait normal and moves all extremities Psych Speech and movement: Normal speech and movement present Assessment & Plan Assessment & Plan (1) Rash and nonspecific skin eruption: Code(s): R21 - Rash and other nonspecific skin eruption Plan: Continue taking Zrytec BID May Take Benadryl at Bedtime Apply Hydrocortisone Cream DDX's: Poison April vs Hives vs Herpes. Medications: New prednisone 50 mg PO DAILY 5 days 5 tabs 0RF R21 - Rash and other nonspecific skin eruption Coding Level of Care Code Est Pt Level 3 (38834) Diagnoses Rash and nonspecific skin eruption R21 Time Spent (min) 15
== END 2024-03-14 08:39 | disposition home or self-care (01) ==
PROVIDERS: PCP Internal Medicine; Visit Provider Nurse Practitioner Family
DX: R21 Rash and other nonspecific skin eruption (principal)
CPT/HCPCS: 99213

== ENCOUNTER 2024-05-08 07:28 | Outpatient (REF) | payer BC, SELFPAY ==
--- NOTE | ~2024-05-08 | MM_ITS ---
EXAMINATION: MM SCREENING DIGITAL BREAST TOMOSYNTHESIS, BILATERAL CLINICAL INFORMATION: Screening. Asymptomatic. COMPARISON: Mammography: Comparison is made with available priors TECHNIQUE: Digital breast mammography with tomosynthesis is performed in both the craniocaudal and mediolateral oblique views along with computer-aided detection (CAD). FINDINGS: There are scattered areas of fibroglandular density (ACR BI-RADS breast composition Category b). There are no significant masses, abnormal calcifications, or other abnormalities. MM/MM tomosynthesis screening BI IMPRESSION: No mammographic evidence of malignancy. ASSESSMENT: BI-RADS BI-RADS 1 - Negative RECOMMENDATION: Routine annual mammography screening. 1 year F/U This examination should not preclude the clinical evaluation of a suspicious palpable abnormality. This patient's information was entered into a reminder system with a target due date for their next mammogram. Electronically signed by: Keyla Hancock DO 05/20/2024 05:28 PM EDT
== END 2024-05-08 07:29 | disposition home or self-care (01) ==
LOC: HO.MAMMO 07:28
PROVIDERS: PCP Internal Medicine; Visit Provider Internal Medicine
DX: Z12.31 Encounter for screening mammogram for malignant neoplasm of breast (principal)
CPT/HCPCS: 77063; 77067

== ENCOUNTER → 2024-05-08 07:45 | Outpatient (BNV) | payer BC, SELFPAY | PROVIDERS: PCP Internal Medicine; Visit Provider Internal Medicine | DX: Z12.31 Encounter for screening mammogram for malignant neoplasm of breast (principal) | CPT/HCPCS: 77063; 77067 ==

== ENCOUNTER 2024-05-28 07:22 | Outpatient (AMB) | payer BC, SELFPAY ==
--- NOTE | 2024-05-28 07:31 | MHC.OFFVIS ---
Intake Visit Reasons: 3 month follow up/ PVR Intake Note: Patient presents today for follow up on: recurrent uti, retention w/incomplete bladder emptying Urology Medications: estrace cream Blood Thinner: none PVR: 0ml's Commercial Illustrator Required: No Accompanied by: Self / Same As Patient Allergies amoxicillin Allergy (Intermediate, Verified 05/28/24 08:09) rash Medication List - Last Reconciled 05/28/24 by DEBBIE Burns acetaminophen ER 650 mg PO Q8H PRN calcium carbonate 500 mg PO DAILY cholecalciferol (vitamin D3) 25 mcg PO DAILY estradiol 0.01%(0.1mg/gram) pea-sized to urethra 3 times a week 30 days prednisone 50 mg PO DAILY 5 days HPI Comments Details: Vijaya is a pleasant 68-year-old female patient of Dr. Olsen. She presents to the office today for follow-up of recurrent urinary tract infections and incomplete bladder emptying. In discussion with the patient today she reports to be doing and feeling well. She reports since her last office visit here approximately 3 months ago she has since stopped her low-dose terazosin for incomplete bladder emptying and feels she has been doing well. She does report noting incomplete bladder emptying when she was taking cold medicine. In office urinalysis results reviewed with the patient today. PVR 0 mL. She reports compliance with Estrace cream as prescribed. She denies any bothersome urinary issues or concerns at this time. Previous workup has included a retroperitoneal ultrasound 01/13 noting bilateral kidneys with no calculi, lesions, and or hydronephrosis noted. The bladder is well distended and normal. Pre void bladder volume is approximately 630 mL. Postvoid bladder volume is approximately 200 mL. When asked she denies urinary urgency, urinary frequency, incontinence, nocturia, hematuria, dysuria, foul smelling urine, changes to urinary stream, flank pain, fever, and or chills. Discussed at length potential causes and affects of incomplete bladder emptying. She otherwise offers no issues or concerns at this time. 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 Sexual orientation: Straight/Heterosexual Gender identity: Female Female Reproductive History Menstrual Age of Menarche: 12 Review of Systems Const Reports as per HPI Eyes Reports no additional complaints ENT Reports no additional complaints Card Reports no additional complaints Resp Reports no additional complaints GI Reports no additional complaints Reports as per HPI Musc Reports as per HPI Neuro Reports no additional complaints Psych Reports no additional complaints Endo Reports no additional complaints Getachew/Lymph Reports no additional complaints Aller/Immun Reports no additional complaints Physical Exam Const General: cooperative, healthy appearing, comfortable, no acute distress, well developed, alert and awake Orientation/consciousness: patient oriented x3 Limitations: no limitations HEENT Head: Yes normal to inspection, Yes normocephalic and Yes atraumatic Ears: hearing grossly normal bilaterally Eyes General: appearance normal, both eyes and all related structures Neck Neck: Yes normal visual inspection and Yes trachea midline Chest Chest palpation & inspection: normal inspection of the chest Resp Effort & Inspection: normal respiratory effort and able to speak in complete sentences Cardio Rate: regular rate GI Inspection: Yes normal to inspection General: Yes no CVA tenderness Back/Spine/Pelvis Back: no CVA tenderness Skin General skin exam: no rashes or lesions noted Neuro General: patient oriented x3 Extrem General: Yes normal to inspection Psych Appearance: grossly normal and well kempt Mental Status: mental status grossly normal Speech and movement: Normal speech and movement present and Clear speech present Affect: normal affect Attitude: cooperative Thought process: Normal thought process present Thought content: Normal thought content present Insight: Good insight present (Psych) Judgement: Good judgement present (Psych) Office Procedures Post Void Residual Post Residual Void Post Void Residual (PVR): 0 [id number]-[id number] Void Residual by ultrasound Results AMB Urinalysis, Automated UA Leukoctes 0 Marnie/uL Last Edit by Ariadna Cuello on 05/28/24 07:51 UA Nitrite Last Edit by Ariadna Cuello on 05/28/24 07:51 UA Urobilinogen 0.2 mg/dL Last Edit by Powerbrendamanda Barneyarvin on 05/28/24 07:51 UA Protein 0 mg/dL Last Edit by Powerdelaney Savitaarvin on 05/28/24 07:51 UA pH 6.0 Last Edit by Ariadna Savitaarvin on 05/28/24 07:51 UA Blood 0 Lokesh/uL Last Edit by Ariadna Savitaarvin on 05/28/24 07:51 UA Specific Rolla 1.015 Last Edit by Powerdelaney Savitaarvin on 05/28/24 07:51 UA Ketone Negative Last Edit by Ariadna Savitaarvin on 05/28/24 07:51 UA Bilirubin 0 mg/dL Last Edit by Ariadna Savitaarvin on 05/28/24 07:51 UA Glucose 0 mg/dL Last Edit by Ariadna Savitaarvin on 05/28/24 07:51 Results Reviewed Results Reviewed: Laboratory Last Values Urine pH (Auto) 6.0 05/28/24 07:36 Specific Rolla (Auto) 1.015 05/28/24 07:36 Urine Protein (Auto) 0 mg/dL 05/28/24 07:36 Glucose (UA)(Auto) 0 mg/dL 05/28/24 07:36 Urine Ketones (Auto) Negative 05/28/24 07:36 Urine Blood (Auto) 0 Lokesh/uL 05/28/24 07:36 Urine Bilirubin (Auto) 0 mg/dL 05/28/24 07:36 Urine Urobilinogen (Auto) 0.2 mg/dL 05/28/24 07:36 Leukocyte Esterase (Auto) 0 Marnie/uL 05/28/24 07:36 Assessment & Plan Assessment & Plan (1) Recurrent UTI: Code(s): N39.0 - Urinary tract infection, site not specified Category: Medical (2) Urethral caruncle: Code(s): N36.2 - Urethral caruncle Category: Medical (3) Urinary retention with incomplete bladder emptying: Code(s): R33.9 - Retention of urine, unspecified Category: Medical Plan In office urinalysis results reviewed with the patient today; as noted above. PVR 0 mL. Patient currently denies any bothersome urinary issues or concerns. She reports be happy with current voiding parameters. Continue Estrace cream as discussed and prescribed. Discussed correlation of cold medicine with urinary issues. Follow-up in 6 months with PVR; or sooner with any issues, concerns, and or questions. Orders: Orders AMB Urinalysis Automated Today Z13.9 - Encounter for screening, unspecified AMB Post Void Residual by ultrasound Today N39.0 - Urinary tract infection, site not specified Patient Instructions: The patient had an opportunity to ask questions regarding the treatment plan. All questions were answered. Physical exam, labs, and imaging were discussed and reviewed in detail. As well as risks, benefits, and discussion of treatment choices. No major barriers to understanding were identified. The patient expressed understanding and agreement with the above treatment plan. The patient was made aware they should contact our office by phone for worsening of their current condition, the appearance of new symptoms, or with any questions or concerns. Compliance is encouraged with any medications and follow up testing that is ordered. It is a privilege to be allowed the opportunity to participate in? your urological care.? Again, if you have any questions or concerns If you have any questions or concerns please do not hesitate to contact me. The office is [phone]. This note is constructed using voice recognition software. While every effort has been made to ensure accuracy student assistance counselor errors may have been included. Yours sincerely, DEBBIE Burns Coding Level of Care Code Est Pt Level 3 (79747) Complex EM visit Add On G2211 Diagnoses Recurrent UTI N39.0 Urethral caruncle N36.2 Urinary retention with incomplete bladder emptying R33.9 CPT Codes Post Residual Void - PVR CPT Code: 37191-[id number] Void Residual by ultrasound ([id number])
== END 2024-05-28 08:06 | disposition home or self-care (01) ==
LOC: HO.HUSH 07:22
PROVIDERS: PCP Internal Medicine; Visit Provider Nurse Practitioner Family
DX: N39.0 Urinary tract infection, site not specified (principal); N36.2 Urethral caruncle; R33.9 Retention of urine, unspecified; Z13.9 Encounter for screening, unspecified
CPT/HCPCS: 99213

== ENCOUNTER → 2024-05-28 07:22 | Outpatient (BNVA) | payer BC, SELFPAY | PROVIDERS: PCP Internal Medicine; Visit Provider Nurse Practitioner Family | DX: N39.0 Urinary tract infection, site not specified (principal); N36.2 Urethral caruncle; R33.9 Retention of urine, unspecified | CPT/HCPCS: 51798; 81003 ==

== ENCOUNTER 2024-09-04 09:00 | Outpatient (RCR) | payer BC, SELFPAY | END 2024-10-11 07:20 | disposition home or self-care (01) | LOC: HO.PTCHIC 09:00 | PROVIDERS: PCP Internal Medicine; Visit Provider Registered Nurse | DX: M25.552 Pain in left hip (principal); M76.32 Iliotibial band syndrome, left leg; M76.892 Other specified enthesopathies of left lower limb, excluding foot | CPT/HCPCS: 97110; 97140; 97162 ==

== ENCOUNTER 2024-11-20 10:49 | Outpatient (REF) | payer BC, SELFPAY ==
--- OUTSIDE RECORDS SUMMARY | 2024-11-20 12:14 | XMS_ITS | Clinical Summary ---
Author Organization [facility] Address [address] [place] [address] Care Team Providers Care Marketing Editor Name Role Phone Michael Olsen MD Primary Care Provider [phone] Allergies Active Allergy Reactions Criticality Noted Date Comments Amoxicillin Itching 05/04/2023 Latex Rash Low 05/04/2023 Medications Medication Sig Dispensed Refills Start Date End Date Status terazosin (HYTRIN) 1 MG capsule Take 1 capsule (1 mg total) by mouth every night at bedtime. 0 Active acetaminophen (TYLENOL) 500 MG tablet Take 2 tablets (1,000 mg total) by mouth every 8 (eight) hours as needed for pain for up to 60 doses. Do not exceed 3000 mg in one day 60 tablet 0 05/08/2023 Active senna-docusate (Senna Plus) 8.6-50 MG Take 2 tablets by mouth every night at bedtime as needed for constipation (to prevent constipation after surgery while taking narcotic pain medication) for up to 30 doses. 30 tablet 0 05/08/2023 Active oxyCODONE (ROXICODONE) 5 MG immediate release tablet Take 1 tablet (5 mg total) by mouth every 4 (four) hours as needed for pain (severe pain after surgery) for up to 30 doses. Partial fill upon request. 30 tablet 0 05/08/2023 Active Social History Tobacco Use Types Packs/Day Years Used Date Smoking Tobacco: Never Smokeless Tobacco: Never Tobacco Cessation:Counseling Given: Not Answered Alcohol Use Standard Drinks/Week Comments Yes 0 (1 standard drink = 0.6 oz pur e alcohol) occasional Sex and Gender Information Value Date Recorded Sex Assigned at Female 05/04/2023 4:35 PM EDT Gender Identity Not on file Sexual Orientation Not on file Job Start Date Occupation Industry Not on file Not on file Not on file Last Filed Vital Signs Vital Sign Reading Time Taken Comments Blood Pressure 108/56 05/08/2023 12:59 PM EDT Pulse 95 05/08/2023 12:59 PM EDT Temperature 36.5 ??C (97.7 ??F) 05/08/2023 12:49 PM E DT Respiratory Rate 16 05/08/2023 12:59 PM EDT Oxygen Saturation 93% 05/08/2023 12:59 PM EDT Inhaled Oxygen Concentration - - Weight 88.5 kg (195 lb) 05/04/2023 4:34 PM EDT Height 175.3 cm (5' 9 ) 05/04/2023 4:34 PM EDT Body Mass Index 28.8 05/04/2023 4:34 PM EDT Plan of Treatment Health Maintenance Due Date Last Done Comments Hepatitis C Screening 1955 Depression Screening 1967 Preventative Health Evaluation 1973 Colon Cancer Screening (Colonoscopy) 2000 Breast Cancer Screening (Mammogram) 2005 Shingrix-Zoster Vaccine (1 of 2) 2005 09/25/2016 Fall Risk Assessment 2020 Osteoporosis Screening (DEXA Scan) 2020 DTap / Tdap / Td (2 - Td or Tdap) 03/18/2024 03/18/2014 COVID-19 Vaccine ( season) 2024 05/27/2022, 06/19/2021, 10/24/2020, Additional history exists Influenza Vaccine (#1) 2024 3, 05/03/2022, 05/11/2021, Additional history exists RSV Adult > 60+ Yrs or (1 - 1-dose 75+ series) 2030 Pneumococcal Vaccine Completed 12/27/2021 Hepatitis B Vaccines Aged Out No long er eligible based on patient's age to complete this topic RSV Ped < 20 months Aged Out No longe r eligible based on patient's age to complete this topic Medical Devices Implanted Type Area Shop Superintendent Device Identifier Shelf Expiration Date Model / Serial / Lot Lynbrook Sut 5.5mm Healicoil Regenesorb 3 Sutures Smn-Endo [id number] - [id number] Implanted:Qty: 1 on 05/08/2023 by Douglas Leonard MD at Location Left: Shoulder [employer] 01/19/2026 [id number] / / [id number] Implant Bioinductive W Arth Del Med Smn-Endo [id number] - [id number] Implanted:Qty: 1 on 05/08/2023 by Douglas Leonard MD at Location Left: Shoulder [employer] 01/21/2026 [id number] / / [id number] Lynbrook Bone Arthro Del Sys Advncd Smn-Endo [id number] - [id number] Implanted:Qty: 1 on 05/08/2023 by Douglas Leonard MD at Location Left: Shoulder [employer] 10/03/2025 [id number] / / [id number] Anchors Tendon 8 Smn-Endo [id number] - [id number] Implanted:Qty: 1 on 05/08/2023 by Douglas Leonard MD at Location Left: Shoulder [employer] 11/11/2025 [id number] / / [id number] Care Teams Marketing Editor Relationship Specialty Start Date End Date Michael Olsen MD [address] [facility] [place] [address] PCP - General Internal Medicine 04/28/23
--- OUTSIDE RECORDS SUMMARY | 2024-11-20 12:14 | XMS_ITS ---
Author Name [facility] Organization Unknown Encounters Encounter Type Encounter Reason Primary Diagnosis Location Date Ambulatory Complete rotator cuf f tear or rupture of left shoulder, not specified as traumatic Complete rotator cuff tear or rupture of left shoulder, not specified as traumatic [facility] 05/08/2023 Care Team Organization Name Specialty Phone Email Start Date End Da te [facility] 202211/01/2024 [facility]
--- OUTSIDE RECORDS SUMMARY | 2024-11-20 12:14 | XMS_ITS | Clinical Summary ---
Author Organization [facility] Address [address] [facility] [address] [place] [phone] Phone Care Team Providers Care Residential Aide Name Role Phone Michael Olsen MD Primary Care Provider [phone] Dakota Pfeiffer MD Unavailable [phone] Allergies Active Allergy Reactions Criticality Noted Date Comments Amoxicillin Itching 08/05/2019 Latex Rash Low 05/04/2023 Medications Medication Sig Dispensed Refills Start Date End Date Status multivitamin-mineral s-lutein (CENTRUM SILVER) Tab Take 1 tablet by mouth daily. Active Ca cit-D3-mag#11-zinc-c upr-man-bor (CALTRATE 600+D) 600 mg calcium- 800 unit-50 mg Tab Take 1 tablet by mouth daily. Active Medication-Free Text Pt goes for allergy injections every month at [facility] Dr. Peterson Active estradioL (ESTRACE) 0.01 % (0.1 mg/gram) vaginal cream APPLY PEA-SIZED TO THE URETHRA 3 TIMES A WEEK 01/29/2022 Active naproxen sodium (ALEVE) 220 MG tablet Take 1 tablet by mouth 2 (two) times a week. 02/21/2023 Active Active Problems Problem Noted Date Diagnosed Date Poison corbin 04/17/2024 Overview (04/17/2024): 03/14/24 Seen at walk in- [facility] zyrte, topical hydrocortisone, benadryl at Frequent UTI 03/27/2024 Overview (03/27/2024): Follows with Uro SYDNIE Burns [facility] urology last visit 02/26/24 cont vit c, D mannose supplements- hydrating, inc fiber, timed voiding f/u 3m Trigger ring finger of right hand 02/29/2024 Assessment & Plan (02/29/2024 9:12 AM EDT): I believe patient has the beginning stages of trigger finger on the right fourth digit. Patient has no locking or pain. Her last TSH was back in 2021 and it was 2.56. -Ortho consult for Dr. Costa -Right hand x-ray OA (osteoarthritis) 11/22/2019 Acid reflux 11/22/2019 Hiatal hernia 11/22/2019 Elevated cholesterol 11/22/2019 Thrombocytopenia Allergic rhinitis Immunizations Name Administration Dates Next Due COVID-19 (Pre-05/15) Algenol Biofuel Vaccine, Bivalent 12+ 05/27/2022 COVID-19 (Pre-05/15) Pfizer Vaccine, mRNA, PF 06/19/2021,10/24/2020,10/03/2020 COVID-19 Pfizer Comirnaty Vaccine 12+ 05/25/2023 Influenza High-Dose Quadriva lent Preservative Free IM 05/03/2022,05/04/2021 Influenza Quadrivalent Preservative Free IM 02/23 Influenza Trivalent w/ Preservative IM Influenza, Unspecified Formulation 04/25/2020 Pneumococcal conjugate PCV20 12/27/2021 Td (adult) 5 Lf Tetanus Toxo id, PF, Adsorbed 11/21/2023 Tdap 03/18/2014 Zoster unspecified formulation 09/25/2016 Family History Medical History Relation Comments Colon cancer Father Tuberculosis Maternal Grandfather Arthritis Mother Hypertension Mother Stroke Mother Thyroid disease Mother Relation Status Comments Father Maternal Grandfather Mother on 07/06/21 at age 86 Social History Tobacco Use Types Packs/Day Years Used Date Smoking Tobacco: Never Smokeless Tobacco: Never Tobacco Cessation:Counseling Given: Not Answered Alcohol Use Standard Drinks/Week Comments Yes 0 (1 standard drink = 0.6 oz pure alcohol) 2-3 drinks (Vodka) , monthly or less Child or Family Care Answer Date Record ed Do you have problems with on e of the following making it difficult for you to work, study, or receive health care? No 11/19/2024 Education Answer Date Recorded Are you interested in more education? Not on jennifer e 04/30/2024 Are you concerned about learning? Not on file 04/30/2024 No 04/30/2024 No 04/30/2024 Food Answer Date Recorded Within the past 6 months we worried whether our food would run out before we got money to buy more. Never True 11/19/2024 Within the past 6 months the food we bought just didn't last and we didn't have enough money to get more. Never True Residential Stability Answer Date Recor ded What is your housing situation today? I have macie sing 11/19/2024 How many times have you move d in the past 12 months? Zero (I did not move) 11/19/2024 Paying for Meds Answer Date Recorded Do you have trouble paying for medicines? No 11/19/2024 Paying Utility Bills Answer Date Record ed Do you have trouble paying your heating or elect ricity bill? No 11/19/2024 Transportation Answer Date Recorded Has the lack of transportati on kept you from medical appointments or from getting medications? No 11/19/2024 Unemployment Answer Date Recorded Are you currently unemployed or working on a part-time or temporary basis, and looking for work? No 04/30/2022 Digital Access Answer Date Recorded No 11/19/2024 Yes 11/19/2024 Do you have reliable internet access at home? Ye s 11/19/2024 Do you have a device (e.g., phone, tablet, computer) with a working camera? Yes 11/19/2024 Intimate Partner Violence Answer Date R ecorded Denied Basic Needs Not on file 11/19/2024 In the past 12 months have y ou been in a relationship with a person who hurts, threatens, or tries to control you? No 11/19/2024 Worried food would run out Not on file 11/19 In the past 12 months have y ou been in a relationship with a person who hurts, threatens, or tries to control you? No 11/19/2024 Sex and Gender Information Value Date Recorded Sex Assigned at Not on file Gender Identity Not on file Sexual Orientation Not on file Last Filed Vital Signs Vital Sign Reading Time Taken Comments Blood Pressure 112/68 02/29/2024 8:39 AM EDT Pulse 60 02/29/2024 8:39 AM EDT Temperature 36.2 ??C (97.2 ??F) 11/21/2023 9:54 AM ED T Respiratory Rate 21 02/29/2024 8:39 AM EDT Oxygen Saturation 98% 02/29/2024 8:39 AM EDT Inhaled Oxygen Concentration - - Weight 87.5 kg (192 lb 12.8 oz) 02/29/2024 8:39 AM EDT Height 174.8 cm (5' 8.82 ) 02/29/2024 8:39 AM ED T Body Mass Index 28.62 02/29/2024 8:39 AM EDT Plan of Treatment Upcoming Encounters Date Type Department Care Team (Late st Contact Info) Description 11/25/2024 8:30 AM EDT Appointment [facility] Internal Medicine [address] [place] [address] Michael Olsen MD [address] [place] [address] [email or web address] Health Maintenance Due Date Last Done Comments COLOGUARD 2000 FIT TEST 2000 FOBT 2000 SIGMOIDOSCOPY 2000 VIRTUAL COLONOSCOPY 2000 ZOSTER VACCINES (1 of 2) 2005 09/25/2016 COVID-19 VACCINE ( season) 2024 05/25/2023, 05/27/2022, 06/19/2021, Additional history exists DEPRESSION SCREENING 11/19/2025 11/19/2024 MAMMOGRAM 05/08/2026 05/08/2024, 04/23, 05/01/2023, Additional history exists SCREENING FOR DIABETES 12/01/2026 , 03/17/2023, 02/12/2019 COLONOSCOPY 04/08/2027 04/08/2022, 09/23/2016 COLORECTAL CANCER SCREENING 04/08/2027 LIPID PANEL 12/01/2028 12/02/2023, 0507/2023, 12/02/2023, Additional history exists RSV VACCINE (1 - 1-dose 75+ series) 2030 Adult Td,Tdap Booster 11/20/2033 11/21/2023, 014 HEPATITIS C SCREENING Completed 02/04/2020 PNEUMOCOCCAL VACCINES (50+ years) Completed 12/27/2021 OSTEOPOROSIS SCREENING INITIAL (ONE-TIME) Completed 04/13/2023, 03/31/2017 SMOKING STATUS SCREENING (Once After 26 Yrs) Completed 04/29/2024 HEPATITIS A VACCINES Aged Out No long er eligible based on patient's age to complete this topic HIB VACCINES Aged Out No longer eligi ble based on patient's age to complete this topic MENINGOCOCCAL VACCINES (ACWY) Aged Out No longer eligible based on patient's age to complete this topic Medical Devices Not on file Procedures Procedure Name Priority Date/Time Associated Diagnosis Comments MAMMOGRAPHY Routine 05/08/2024 4:27 PM EDT OUTSIDE HDL Routine 12/02/2023 DEXA SCAN Routine 04/13/2023 COLONOSCOPY FOR RESULT ENTRY ONLY Routine 04/08/2022 HEPATITIS C ANTIBODY, QUALITATIVE Routine 02/04/2020 8:04 AM EDT Need for hepatitis C screening test OUTSIDE GLUCOSE FASTING Routine 02/12/2019 from Last 3 Months or Most Recently Relevant to Health Maintenance Results * MAMMOGRAPHY FOR RESULT ENTRY ONLY (05/08/2024 4:27 PM EDT) Historical Provider [facility] MA[facility] * Outside HDL (12/02/2023) HDL - External 56 40 - 80 mg/dL Historical Provider LAB BLOOD ORDERAB LES * DEXA SCAN (04/13/2023) Michael Olsen MD HEALTH MAINTENANCE * COLONOSCOPY FOR RESULT ENTRY ONLY (04/08/2022) Historical Provider MD [facility] MAINTENANC E * Hepatitis C antibody, qualitative (02/04/2020 8:04 AM EDT) HCV NON-REACTIV E NON-REACTI VE [facility] Blood 02/04/2020 8:04 AM EDT 02/04/2020 8:09 AM EDT Michael Olsen MD LAB BLOOD ORDERABLES [facility] [address] [place] [address] * Outside Glucose,Fasting (02/12/2019) Pathologist [facility] Glucose, fasting - External 93 65 - 99 mg/dL Historical Provider LAB BLOOD ORDERAB LES from Last 3 Months or Most Recently Relevant to Health Maintenance [address] [place] [address] Ari Eloisa Vijaya Personal/Family Self [address] [place] [address] [address] [place] [address] Chapman Eloisa Lilly Personal/Family Self [address] [place] [address] [address] [place] [address] Ari Eloisa Vijaya Personal/Family Self [address] [place] [address] [address] [place] [address] Ari Eloisa Vijaya Personal/Family Self [address] [place] [address] [address] [place] [address] Eloisa Chapman Personal/Family Self 1955 [address] [facility] [address] [place], [place] [address]Eloisa Gu Personal/Family Self 1955 [address] [facility] [address] [place], [place] [address]Eloisa Gu Personal/Family Self 1955 [address] [facility] [address] [place], [place] [address]Eloisa Gu Personal/Family Self 1955 [address] [facility] [address] [place] [address] Care Teams Residential Aide Relationship Specialty Start Date End Date Michael Olsen MD [address] [place] [address] [email or web address] PCP - General Internal Medicine 10/28/19 Dakota Pfeiffer MD [address] [place] [address] Drive [address] [place] [address] Gastroenterology 11/22/19 Additional Source Comments The information contained in this document represents components of the legal health record. It is not the complete legal health record.[facility]
--- OUTSIDE RECORDS SUMMARY | 2024-11-20 12:14 | XMS_ITS | Clinical Summary ---
Author Organization 175 [facility] Address [address] [place] [address] Phone Care Team Providers Care Tool Setter Name Role Phone Michael Olsen MD Primary Care Provider [phone] Allergies Active Allergy Reactions Criticality Noted Date Comments Amoxicillin 10/28/2021 Medications qhz-U0-krw74-zin l-jol-yqou-bor (Caltrate 600-D Plus Minerals) 600 mg calcium- 800 unit-50 mg tablet Take by mouth. Active multivit-min/fol ic acid/lutein (CENTRUM SILVER ORAL) Take by mouth. Active conjugated estrogens (Premarin) vaginal cream Place vaginally. Active ibuprofen (ADVIL,MOTRIN) 800 mg tablet Take 800 mg by mouth every 8 hours as needed. Active terazosin (HYTRIN) 1 mg capsule Take 1 mg by mouth at bedtime. Active Active Problems Problem Noted Date Diagnosed Date Tear of right supraspinatus tendon 07/06/2022 Cervical radiculopathy 06/21/2022 Overview (06/06/2024): Last Assessment & Plan: Ms. Chapman has been suffering with neck and right upper extremity pain since January. She has been to physical therapy and takes Advil 600 mg twice daily without relief. She had to stop therapy after 17 sessions because it was not helping and she felt unable to continue the exercises. I will send her for an MRI of the cervical spine to better understand the situation. Right shoulder pain 06/21/2022 Overview (06/06/2024): Last Assessment & Plan: Ms. Cahpman is suffering with right shoulder pain. It is exacerbated by certain movements of the arm and shoulder. She has some tenderness at the AC joint. I would like to get some x-rays of the right shoulder to better understand her situation. She might need an orthopedic evaluation. Lumbar stenosis with neurogenic claudication 01/2022 Overview (06/06/2024): Last Assessment & Plan: Ms. Chapman is here for her first postop visit since an L4-5 decompression on 11/11/2021. She feels well with little or no back pain but gets some pain and cramping in the left thigh usually in the mornings as she is stiff waking up and her medication has worn off. She is weaning down to taking oxycodone only at night and is using Tylenol and Advil during the day with good result. She has been using ice over the lower back and noticed bruising over the sacrum immediately after surgery. This is not painful. She denies fevers or any drainage from the incision. On exam, the incision is well approximated without erythema, warmth or tenderness. The surrounding muscle is a little firm and she does have bruising in the midline and over the top buttocks likely from muscle retraction at the incision during surgery. Seated straight leg raise is negative, strength is 5 out of 5, sensation light touch intact, gait is steady. The anil were removed without difficulty. 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 The muscle swelling should subside over the next few weeks. We reviewed the plan for resuming exercise such as walking and weight training at the gym as well as lifting up to 20 to 25 pounds by 4 weeks from surgery and up to 40 pounds at 6 weeks from surgery. As such, if she is feeling well, she does not need to follow-up with us again at 6 weeks postop. She is welcome to call with any concerns. Surgical History Surgery Date Site/Laterality Comments TONSILLECTOMY PROCEDURE: HISTORICAL TONSILLECTOMY; COMMENT: Age 5 APPENDECTOMY PROCEDURE: HISTORICAL APPENDECTOMY; COMMENT: Age 7 SHOULDER SURGERY 05/08/2023 Left PROCEDURE: HISTORICAL SHOULDER SURGERY; COMMENT: RCR Social History Tobacco Use Types Packs/Day Years Used Date Smoking Tobacco: Never Smokeless Tobacco: Never Comments Unknown Sex and Gender Information Value Date Recorded Sex Assigned at Not on file Legal Sex Female 12:22 AM EST Gender Identity Not on file Sexual Orientation Not on file Obstetrics History Last Filed Vital Signs Vital Sign Reading Time Taken Comments Blood Pressure 128/74 02/23/2023 8:47 AM EDT L A rm Pulse 60 02/23/2023 8:47 AM EDT Temperature - - Respiratory Rate - - Oxygen Saturation - - Inhaled Oxygen Concentration - - Weight 86.2 kg (190 lb) 05/15/2024 9:48 AM EDT Height 175.3 cm (5' 9 ) 05/15/2024 9:48 AM EDT Body Mass Index 28.06 05/15/2024 9:48 AM EDT Plan of Treatment Upcoming Encounters Date Type Department Care Team ([facility] st Contact Info) Description 05/14/2025 9:00 AM EDT Office Visit Orthopedic Surgery - [place] [address] [address] Douglas Leonard MD 175 [facility] [address] [place] [address] Health Maintenance Due Date Last Done Comments Breast Cancer Screening 1955 Zoster Vaccines (2 of 3) 11/20/2016 09/25/2016 Colorectal Cancer Screening: Colonoscopy 06/26/2022 Depression Screening 06/26/2022 Falls Risk Assessment 06/26/2022 Osteoporosis Screening (Bone Density Screening) 06/26/2022 Social Influencers of Health Screening 06/26/2022 COVID-19 Vaccine ( season) 2024 05/25/2023, 05/27/2022, 06/19/2021, Additional history exists Influenza Vaccine (Season Ended) 2025 03/23/2023, 05/03/2022, 05/11/2021, Additional history exists Cholesterol Screening (Lipid Panel) 05/03/2027 05/03/2022 RSV Immunization Adult Patients (1 - 1-dose 75+ series) 2030 DTaP,Tdap,and Td Vaccines (3 - Td or Tdap) 11/20/2033 11/21/2023, 03/18/2014 Hepatitis C Screening Completed 02/04/2020 Pneumococcal Vaccine: 50+ Years Completed 12/27/2021 HIB Vaccines Aged Out No longer eligi ble based on patient's age to complete this topic HPV Vaccines Aged Out No longer eligi ble based on patient's age to complete this topic Hepatitis A Vaccines Aged Out No long er eligible based on patient's age to complete this topic Hepatitis B Vaccines Aged Out No long er eligible based on patient's age to complete this topic IPV Vaccines Aged Out No longer eligi ble based on patient's age to complete this topic MMR Vaccines Aged Out No longer eligi ble based on patient's age to complete this topic Meningococcal ACWY Vaccine Aged Out N o longer eligible based on patient's age to complete this topic Meningococcal B Vaccine Aged Out No l onger eligible based on patient's age to complete this topic RSV Immunization Patients Under 20 months Aged Out No longer eligible based on patient's age to complete this topic Varicella Vaccines Aged Out No longer eligible based on patient's age to complete this topic Medical Devices Implanted Type Area Electric Cutter Operator Device Identifier Shelf Expiration Date Model / Serial / Lot Henry Sut 5.5mm Healicoil Regenesorb 3 Sutures [facility] [id number] Implanted:Qty: 1 on 05/08/2023 by Douglas Leonard MD Left: Shoulder [employer] - ORTHOPAEDICS 01/19/2026 [id number] / / [id number] Implant Bioinductive W Arth Del Med [facility] [id number] Implanted:Qty: 1 on 05/08/2023 by Douglas Leonard MD Left: Shoulder [employer] - ORTHOPAEDICS 01/21/2026 [id number] / / [id number] Henry Bone Arthro Del Sys Advncd [facility] [id number] Implanted:Qty: 1 on 05/08/2023 by Douglas Leonard MD Left: Shoulder [employer] - ORTHOPAEDICS 10/03/2025 [id number] / / [id number] Anchors Tendon 8 [facility] [id number] Implanted:Qty: 1 on 05/08/2023 by Douglas Leonard MD Left: Shoulder [employer] - ORTHOPAEDICS 11/11/2025 [id number] / / [id number] Procedures Procedure Name Priority Date/Time Associated Diagnosis Comments LIPID PANEL Routine 05/03/2022 from Last 3 Months or Most Recently Relevant to Health Maintenance Results * Lipid panel (05/03/2022) LDL/HDL Ratio 0 Comment:No Interpretation Triglycerides 0 mg/dL Comment:No Interpretation Cholesterol 0 mg/dL Comment:No Interpretation HDL 0 mg/dL Comment:No Interpretation LDL Cholesterol 0 mg/dL Comment:No Interpretation Blood Venous blood specimen / Unknown Historical Provider LAB BLOOD ORDERABLES Becky l Result from Last 3 Months or Most Recently Relevant to Health Maintenance Insurance , [address] [place], [place] [id number] [place] [address] Care Teams Tool Setter Relationship Specialty Start Date End Date Michael Olsen MD [address] [place], [place] [phone] PCP - General Internal Medicine 10/27/21
--- OUTSIDE RECORDS SUMMARY | 2024-11-20 12:14 | XMS_ITS | Encounter Summary ---
Author Organization [facility] Address [address] [facility] [address] [place] [address] Phone Care Team Providers Care Supervisor Putty And Caluking Name Role Phone Michael Olsen MD Primary Care Provider [phone] Dakota Pfeiffer MD Unavailable [phone] Reason for Visit * Reason Onset Date Comments Cloudy Urine 12/01/2022 Encounter Details Date Type Department Care Team (Late st Contact Info) Description 12/01/2022 Nurse Triage [facility] Internal Medicine [address] [place] [address] Referring, Not Required Cloudy Urine Social History Tobacco Use Types Packs/Day Years Used Date Smoking Tobacco: Never Smokeless Tobacco: Never Alcohol Use Standard Drinks/Week Comments Yes 0 (1 standard drink = 0.6 oz pur e alcohol) 1-2 drinks, monthly or less Child or Family Care Answer Date Record ed Do you have problems with on e of the following making it difficult for you to work, study, or receive health care? No 04/30/2022 Education Answer Date Recorded Are you interested in help w ith more adult education (for example, completing high school, GED, job training, learning the Micronesian language, technical skills, or developing parenting skills)? No 04/30/2022 Food Answer Date Recorded Within the past 6 months we worried whether our food would run out before we got money to buy more. Never True 04/30/2022 Within the past 6 months the food we bought just didn't last and we didn't have enough money to get more. Never True Residential Stability Answer Date Recor ded What is your housing situation today? I have macie hameed 04/30/2022 How many times have you move d in the past 12 months? Zero (I did not move) 04/30/2022 Paying for Meds Answer Date Recorded Do you have trouble paying for medicines? No 04/30/2022 Paying Utility Bills Answer Date Record ed Do you have trouble paying your heating or elect ricity bill? No 04/30/2022 Transportation Answer Date Recorded Has the lack of transportati on kept you from medical appointments or from getting medications? No 04/30/2022 Unemployment Answer Date Recorded Are you currently unemployed or working on a part-time or temporary basis, and looking for work? No 04/30/2022 Sex and Gender Information Value Date Recorded Sex Assigned at Not on file Gender Identity Not on file Sexual Orientation Not on file documented as of this encounter Progress Notes * Kaylah Yeager NP - 12/01/2022 3:07 PM EDT Okay to check urine * Karen Mckeon RN - 12/01/2022 2:55 PM EDT Spoke with patient. She has urinary frequency and cloudy urine since Monday. States its not a burning sensation but it is a sensation when she goes. Pt denies back pain or fever. Nurse Triage Encounter Note Reason for Triage Eloisa Chapman Vijaya contacted office for Other Call Disposition Go To Lab Now Patient/caregiver understands and will follow disposition: Patient/caregiver understands and will follow care advice: Yes, Plans To Follow Advice Disposition Comments: Protocols used: Urinary Ttxazyvz-Wcwyz-Hw Initial Symptom Screening and Assessment IA None Care Advice Given Care Advice Patient/Caregiver understands and will follow care advice?: Yes, plans to follow advice FIRST AID ADVICE FOR SHOCK: Lie down with the feet elevated. REASSURANCE AND EDUCATION - URINARY HESITANCY: * There are many different reasons why people develop problems getting urination going. It is more common in men than women. * In older men a common cause is a large prostate. This is also called benign prostatic hypertrophy(BPH). Another common symptom of this is decreased force of urination. * The best treatment for hesitancy depends on the cause. Possible treatments include medicines, a procedure, or surgery. * Your doctor (or DOG RACES MANAGER/PA) can help you find out what is causing this problem. Patient will call back with additional questions or if symptoms change or worsen Karen Mckeon RN Reason for Disposition and Assessment Reason for Disposition ??? Urinating more frequently than usual (i.e., frequency) Protocols used: URINARY [id number]-[id number]-YM * Nallely Schwartz - 12/01/2022 12:43 PM EDT Patient leaves a voicemail saying she has had cloudy urine since having intercourse last weekend. Please contact and advise. Thanks. documented in this encounter Plan of Treatment Upcoming Encounters Date Type Department Care Team (Late st Contact Info) Description 11/25/2024 8:30 AM EDT Appointment [facility] Internal Medicine [address] [place] [address] Michael Olsen MD [address] [place] [address] [email or web address] documented as of this encounter Results * (ABNORMAL) Urinalysis w/reflex Urine Culture (12/01/2022 4:19 PM EDT) COLOR Yellow Yellow [facility] CLARITY CLOUDY [facility] GLUCOSE Negative Negative [facility] BILI Negative Negative [facility] KETONES Negative Negative [facility] SPECIFIC GRAVITY 1.015 1.005 - 1.030 [facility] BLOOD 2+(A) Negative [facility] PH 6.0 5.0 - 8.0 [facility] Protein-UA 1+(A) Negative [facility] NITRITE Positive(A) Negative [facility] Leukocyte esterase, ur 3+(A) Negative [facility] Urine (Urine) 12/01/2022 4:1 9 PM EDT 12/01/2022 4:21 PM EDT Kaylah L Ma[place] ALBINO URINE ORDERABLES [facility] [address] [place] [address] documented in this encounter Visit Diagnoses Diagnosis Urinary tract infection symptoms- Primary documented in this encounter Additional Health Concerns Assessment Noted Time PHQ-2 Depression Total Score: 0 04/30/20 22 9:30 AM EDT documented as of this encounter Care Teams Supervisor Putty And Caluking Relationship Specialty Start Date End Date Michael Olsen MD [address] [place] [address] [email or web address] PCP - General Internal Medicine 10/28/19 Dakota Pfeiffer MD [address] [place] [address] [address] [place] [address] Gastroenterology 11/22/19 documented as of this encounter Additional Source Comments The information contained in this document represents components of the legal health record. It is not the complete legal health record.[facility]
[2024-11-20 13:43] LABS: Appearance Urine Turbid; Color Urine Yellow; Glucose Urine UA Negative (Negative); Leukocyte Esterase Urine Large (3+) (Negative); Nitrite Urine Positive (Negative); PH 6.5 (5.0-9.0); Specific Gravity - Urine <= 1.005 (1.005-1.025); UMIC TRIGGER UA YES; Urine Blood Small (1+) (Negative); Urine Ketones Negative (Negative); Urine Protein Trace mg/dL (Neg-Trace)
[2024-11-20 14:01] LABS: Bacteria Urine 4+ (None Seen); Hyaline Casts Urine 0-2 /LPF (0-2); RBC Urine 0-2 /HPF (0-2); Squamous Epithelial Cell Urine 0-2 /HPF (0-2); WBC Urine >50 /HPF (0-5)
== END 2024-11-20 10:50 | disposition home or self-care (01) ==
LOC: HO.HMGCLDS 10:49
PROVIDERS: PCP Internal Medicine; Visit Provider Nurse Practitioner Family
DX: N39.0 Urinary tract infection, site not specified (principal); R33.9 Retention of urine, unspecified; B96.1 Klebsiella pneumoniae [K. pneumoniae] as the cause of diseases classified elsewhere
CPT/HCPCS: 81001; 87086; 87088; 87186

== ENCOUNTER 2025-01-27 07:27 | Outpatient (AMB) | payer BC, SELFPAY ==
--- OUTSIDE RECORDS SUMMARY | 2025-01-27 07:30 | XMS_ITS ---
Author Name [facility] Organization Unknown Encounters Encounter Type Encounter Reason Primary Diagnosis Location Date Ambulatory Complete rotator cuf f tear or rupture of left shoulder, not specified as traumatic Complete rotator cuff tear or rupture of left shoulder, not specified as traumatic [facility] 05/08/2023 Care Team Organization Name Specialty Phone Email Start Date End Da te [facility] 202211/01/2024 [facility]
--- OUTSIDE RECORDS SUMMARY | 2025-01-27 07:30 | XMS_ITS | Patient Health Record ---
Author Organization [facility] Address [address] [place] [address] Care Team Providers Care Tea Tree Farm Worker Name Role Phone Michael Olsen MD Primary Care Provider Dakota Rivera Unavailable [phone] Allergies Allergen (clinical drug ingredient) Drug/Non Drug Allergy documented on EMR Reaction Allergy Type Onset Date Status amoxicillin Amoxicillin Unknown Drug Allergy Act awilda Reason For Referral No Information Medications Medication SIG (Take, Route, Fr equency, Duration) Notes Start Date End Date Status Estradiol 0.1 MG/GM Vaginal for 90 Active Terazosin HCl 1 MG TAKE 1 CAPSULE BY MO UT AT BEDTIME Oral for 30 Active Bactrim 400-80 MG 1 tablet Orally Once a day for 10 day(s) Active Immunizations Vaccine Route Administration Date Status Comme nts Influenza Unknown 05/11/2021 Administered Problems Problem Type SNOMED Code ICD Code Onset Dates Problem Status W/U Status Risk Notes Problem 383713562 Encounter for screening for malignant neoplasm of colon (Z12.11) Active confirmed Problem Screening for malignant neoplasm of rectum (468207834) Encounter for screening for malignant neoplasm of rectum (Z12.12) Active confirmed Problem 59960429 Preprocedural examination (Z01.818) Active confirmed Problem 688629354 Family history o f colon cancer (Z80.0) Active confirmed Problem 931744309 Hx of adenomatou s colonic polyps (Z86.010) Active confirmed Problem 631496675517784 Pre-procedural examination (Z01.818) Active confirmed Problem Diverticulosis of colon (472009772) Diverticulosis of colon (K57.30) Active confirmed Plan Of Treatment Future Test Test Name Order Date COLONOSCOPY 06/22/2016 COLONOSCOPY 11/03/2021 Insurance Providers Payer Name Payer Address Payer Phone Subscriber Number Group Number Insured Name Patient Relationship to Insured Coverage Start Date Coverage End Date [facility] [employer] [address] [place] [address] [id number] Eloisa BAILON Self - patient is the insured Medical (General) History Medical History History ICD Code Colonoscopy 05/2006--negative except for internal hemorrhoids GERD-EGD in 05/2006--small H H-no esophagitis, no Elmore's---benign gastic polyps Denies IA,DM,CVA,Lung disease,renal dise ase Colonoscopy 09/2016 with a small tubular adenoma Surgical History Surgery Date(Month/Year) Tonsillectomy Appendectomy Back surgery L4/L5 Decompression 10/2021
--- OUTSIDE RECORDS SUMMARY | 2025-01-27 07:30 | XMS_ITS | Clinical Summary ---
Author Organization [facility] Address [address] [place] [address] Care Team Providers Care Metal Fence Erector Name Role Phone Michael Olsen MD Primary Care Provider [phone] Allergies Active Allergy Reactions Criticality Noted Date [...] 95 05/08/2023 12:59 PM EDT Temperature 36.5 C (97.7 F) 05/08/2023 12:49 PM EDT Respiratory Rate 16 05/08/2023 12:59 PM EDT [...] 06/19/2021, 10/24/2020, Additional history exists Influenza Vaccine (Season Ended) 2025 03/23/2023, 05/03/2022, 05/11/2021, Additional history exists RSV Adult > 60+ Yrs or (1 - 1-dose 75+ series) 2030 Pneumococcal Vaccine Completed 12/27/2021 Hepatitis B Vaccines Aged Out No long er eligible based on patient's age to complete this topic RSV Ped < 20 months Aged Out No longe r eligible based on patient's age to complete this topic Medical Devices Implanted Type Area Communications Professor Device Identifier Shelf Expiration Date Model / Serial / Lot [place] Sut 5.5mm Healicoil Regenesorb 3 Sutures [facility] [id number] - [id number] Implanted:Qty: 1 on 05/08/2023 by Douglas Leonard MD at [facility] Location Left: Shoulder [employer] OR[employer] 01/19/2026 [id number] / / [id number] Implant Bioinductive W Arth Del Med [facility] [id number] - [id number] Implanted:Qty: 1 on 05/08/2023 by Douglas Leonard MD at [facility] Location Left: Shoulder [employer] OR[employer] 01/21/2026 [id number] / / [id number] [place] Bone Arthro Del Sys Advncd [facility]-Endo [id number] - [id number] Implanted:Qty: 1 on 05/08/2023 by Douglas Leonard MD at [facility] Location Left: Shoulder [employer] 10/03/2025 [id number] / / [id number] Anchors Tendon 8 [facility]-Endo [id number] - [id number] Implanted:Qty: 1 on 05/08/2023 by Douglas Leonard MD at [facility] Location Left: Shoulder [employer] OR[employer] 11/11/2025 [id number] / / [id number] Care Teams Metal Fence Erector Relationship Specialty Start Date End Date Michael Olsen MD 40 [facility] Frankie Dillon MD [employer] [place] [address] PCP - General Internal Medicine 04/28/23
--- OUTSIDE RECORDS SUMMARY | 2025-01-27 07:30 | XMS_ITS | Clinical Summary ---
Author Organization 175 [facility] Address [address] [place] [address] Phone Care Team Providers Care Global Ceo Name Role Phone Michael Olsen MD Primary Care Provider [phone] Allergies Active Allergy Reactions Criticality Noted Date Comments Amoxicillin 10/28/2021 Medications wrj-B6-oet45-zin x-nfa-upbs-bor (Caltrate 600-D Plus Minerals) 600 mg calcium- [...] Last Assessment & Plan: Ms. Chapman is suffering with right shoulder pain. It [...] difficulty. 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 [...] Upcoming Encounters Date Type Department Care Team ([facility] st Contact Info) Description 05/19/2025 10:30 AM EDT Office Visit Orthopedic Surgery - [place] [address] [address] Douglas Leonard MD 175 [facility] [address] [place] [address] Health Maintenance Due Date Last Done Comments Breast Cancer Screening 1955 Zoster Vaccines (2 of 3) 11/20/2016 09/25/2016 Colorectal Cancer Screening: Colonoscopy 06/26/2022 Depression Screening 06/26/2022 Falls Risk Assessment 06/26/2022 Osteoporosis Screening (Bone Density Screening) 06/26/2022 Social Influencers of Health Screening 06/26/2022 COVID-19 Vaccine ( season) 2024 05/25/2023, 05/27/2022, 06/19/2021, Additional history exists Influenza Vaccine (#1) 2025 , 05/03/2022, 05/11/2021, Additional history exists Cholesterol Screening [...] this topic Medical Devices Implanted Type Area Prefitter Doors Device Identifier Shelf Expiration Date Model / Serial / Lot [place] Sut 5.5mm Healicoil Regenesorb 3 Sutures [facility] [id number] Implanted:Qty: 1 on 05/08/2023 by Douglas Leonard MD Left: Shoulder [employer] - ORTHOPAEDICS 01/19/2026 [id number] / / [id number] Implant Bioinductive W Arth Del Med [facility] [id number] Implanted:Qty: 1 on 05/08/2023 by Douglas Leonard MD Left: Shoulder [employer] - ORTHOPAED[employer] 01/21/2026 [id number] / / [id number] [place] Bone Arthro Del Sys Advncd [facility] [id number] Implanted:Qty: 1 on 05/08/2023 by Douglas Leonard MD Left: Shoulder [employer] - ORTHOPAED[employer] 10/03/2025 [id number] / / [id number] Anchors Tendon 8 [facility] [id number] Implanted:Qty: 1 on 05/08/2023 by Douglas Leonard MD Left: Shoulder [employer] - ORTHOPAEDICS 11/11/2025 [id number] / / [id number] Procedures Procedure Name Priority Date/Time Associated Diagnosis [...] Relevant to Health Maintenance Insurance , [address] [place], [place] [id number] [place] [address] Care Teams Global Ceo Relationship Specialty Start Date End Date Michael Olsen MD [address] [place], [place] [phone] PCP - General Internal Medicine 10/27/21
--- NOTE | 2025-01-27 07:38 | A.OFFVIS_ITS ---
Intake Visit Reasons: 6m/PVR Intake Note: Patient presents today for follow up on: recurrent uti, retention w/incomplete bladder emptying Urology Medications: estrace cream Blood Thinner: none PVR: 215ml's [employer] Warrant Officer Required: No Accompanied by: Self / Same As Patient Allergies amoxicillin Allergy (Intermediate, Verified 01/27/25 08:23) rash Medication List - Last Reconciled 01/27/25 by DEBBIE Burns acetaminophen ER 650 mg PO Q8H PRN calcium carbonate 500 mg PO DAILY cholecalciferol (vitamin D3) 25 mcg PO DAILY estradiol 0.01%(0.1mg/gram) pea-sized to urethra 3 times a week 30 days terazosin 1 mg PO BEDTIME 90 days HPI Comments Details: Vijaya is a pleasant 69-year-old female patient of Dr. Olsen. She presents to the office today for follow-up of recurrent urinary tract infections and incomplete bladder emptying. In discussion with the patient today she reports to be doing and feeling well. She discusses having called the office for UTI like symptoms. In review of patient's chart it appears urine culture: 12/15: Klebsiella pneumoniae She reports having completed antibiotic therapy as prescribed. In office urinalysis results reviewed with the patient today. PVR 215 mL. She had previously been on terazosin 1 mg at bedtime however this was discontinued as patient had been emptying her bladder well. However we did discuss restart as increase in postvoid residual today. She currently denies any UTI like symptoms. She reports compliance with Estrace cream as prescribed. She denies any bothersome urinary issues or concerns at this time. Previous workup has included a retroperitoneal ultrasound 01/13 noting bilateral kidneys with no calculi, lesions, and or hydronephrosis noted. The bladder is well distended and normal. Pre void bladder volume is approximately 630 mL. Postvoid bladder volume is approximately 200 mL. When asked she denies urinary urgency, urinary frequency, incontinence, nocturia, hematuria, dysuria, foul smelling urine, de león ges to urinary stream, flank pain, fever, and or chills. Discussed at length potential causes and affects of incomplete bladder emptying. She does discuss her upcoming long term next year in his looking forward to it. She otherwise offers no issues or concerns at this time. 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 Sexual orientation: Straight/Heterosexual Gender identity: Female Female Reproductive History Menstrual Age of Menarche: 12 Review of Systems Const Reports as per HPI Eyes Reports no additional complaints ENT Reports no additional complaints Card Reports no additional complaints Resp Reports no additional complaints GI Reports no additional complaints Reports as per HPI Musc Reports as per HPI Neuro Reports no additional complaints Psych Reports no additional complaints Endo Reports no additional complaints Getachew/Lymph Reports no additional complaints Aller/Immun Reports no additional complaints Physical Exam Const General: cooperative, healthy appearing, comfortable, no acute distress, well developed, alert and awake Orientation/consciousness: patient oriented x3 Limitations: no limitations HEENT Head: Yes normal to inspection, Yes normocephalic and Yes atraumatic Ears: hearing grossly normal bilaterally Eyes General: appearance normal, both eyes and all related structures Neck Neck: Yes normal visual inspection and Yes trachea midline Chest Chest palpation & inspection: normal inspection of the chest Resp Effort & Inspection: normal respiratory effort and able to speak in complete sentences Cardio Rate: regular rate GI Inspection: Yes normal to inspection General: Yes no CVA tenderness Back/Spine/Pelvis Back: no CVA tenderness Skin General skin exam: no rashes or lesions noted Neuro General: patient oriented x3 Extrem General: Yes normal to inspection Psych Appearance: grossly normal and well kempt Mental Status: mental status grossly normal Speech and movement: Normal speech and movement present and Clear speech present Affect: normal affect Attitude: cooperative Thought process: Normal thought process present Thought content: Normal thought content present Insight: Good insight present (Psych) Judgement: Good judgement present (Psych) Office Procedures Post Void Residual Post Residual Void Post Void Residual (PVR): 215 [id number] Void Residual by ultrasound Results AMB Urinalysis, Automated UA Leukoctes 0 Marnie/uL Last Edit by Ariadna Cuello [facility] on 01/27/25 07:54 UA Nitrite Last Edit by Ariadna Cuello [facility] on 01/27/25 07:54 UA Urobilinogen 0.2 mg/dL Last Edit by Ariadna Cuello [facility] on 01/27/25 07:5 4 UA Protein 0 mg/dL Last Edit by Ariadna Cuello [facility] on 01/27/25 07:54 UA pH 6.0 Last Edit by Ariadna Cuello [facility] on 01/27/25 07:54 UA Blood 0 Lokesh/uL Last Edit by Ariadna Cuello [facility] on 01/27/25 07:54 UA Specific [place] 1.010 Last Edit by Ariadna Cuello [facility] on 01/27/25 07: 54 UA Ketone Last Edit by Ariadna Cuello [facility] on 01/27/25 07:54 UA Bilirubin 0 mg/dL Last Edit by Ariadna Cuello [facility] on 01/27/25 07:54 UA Glucose 0 mg/dL Last Edit by Ariadna Cuello [facility] on 01/27/25 07:54 Results Reviewed Results Reviewed: Laboratory Last Values Urine pH (Auto) 6.0 01/27/25 07:42 Specific [place] (Auto) 1.010 01/27/25 07:42 Urine Protein (Auto) 0 mg/dL 01/27/25 07:42 Glucose (UA)(Auto) 0 mg/dL 01/27/25 07:42 Urine Blood (Auto) 0 Lokesh/uL 01/27/25 07:42 Urine Bilirubin (Auto) 0 mg/dL 01/27/25 07:42 Urine Urobilinogen (Auto) 0.2 mg/dL 01/27/25 07:42 Leukocyte Esterase (Auto) 0 Marnie/uL 01/27/25 07:42 Assessment & Plan Assessment & Plan (1) Urinary retention with incomplete bladder emptying: Code(s): R33.9 - Retention of urine, unspecified Category: Medical (2) Recurrent UTI: Code(s): N39.0 - Urinary tract infection, site not specified Category: Medical Plan In office urinalysis results reviewed with the patient today; as noted above. PVR 215 mL. Restart terazosin as discussed and prescribed; refill provided. Will refer to pelvic floor therapy for further assessment evaluation. We did discussed at length potential causes of incomplete bladder emptying as well as further treatment options and risks and benefits of these treatment options. Continue Estrace cream as discussed and prescribed. We also discussed attempting to double void to assist with incomplete bladder emptying. She currently denies any bothersome urinary issues. She reports be happy with current voiding parameters. Follow-up in 3-6 months with PVR; or sooner with any issues, concerns, and or questions. Orders: Orders AMB Post Void Residual by ultrasound Today N39.0 - Urinary tract infection, site not specified PT Evaluation and Treatment Today N39.0 - Urinary tract infection, site not specified, R33.9 - Retention of urine, unspecified AMB Urinalysis Automated Today Z13.9 - Encounter for screening, unspecified Medications: New terazosin 1 mg PO BEDTIME 90 caps 1RF 90 days Patient Instructions: The patient had an opportunity to ask questions regarding the treatment plan. All questions were answered. Physical exam, labs, and imaging were discussed and reviewed in detail. As well as risks, benefits, and discussion of treatment choices. No major barriers to understanding were identified. The patient expressed understanding and agreement with the above treatment plan. The patient was made aware they should contact our office by phone for worsening of their current condition, the appearance of new symptoms, or with any questions or concerns. Compliance is encouraged with any medications and follow up testing that is ordered. It is a privilege to be allowed the opportunity to participate in? your urological care.? Again, if you have any questions or concerns If you have any questions or concerns please do not hesitate to contact me. The office is [phone]. This note is constructed using voice recognition software. While every effort has been made to ensure accuracy steam box tender errors may have been included. Yours sincerely, SYDNIE Burns-BC Coding Level of Care Code Est Pt Level 3 (96118) Complex EM visit Add On G2211 Diagnoses Urinary retention with incomplete bladder emptying R33.9 Recurrent UTI N39.0 CPT Codes Post Residual Void - PVR CPT Code: 78522-Xeqw Void Residual by ultrasound ([id number])
== END 2025-01-27 08:28 | disposition home or self-care (01) ==
LOC: HO.HUSH 07:28
PROVIDERS: PCP Internal Medicine; Visit Provider Nurse Practitioner Family
DX: R33.9 Retention of urine, unspecified (principal); N39.0 Urinary tract infection, site not specified; Z13.9 Encounter for screening, unspecified
CPT/HCPCS: 99213

== ENCOUNTER → 2025-01-27 07:27 | Outpatient (BNVA) | payer BC, SELFPAY | PROVIDERS: PCP Internal Medicine; Visit Provider Nurse Practitioner Family | DX: N39.0 Urinary tract infection, site not specified (principal); R33.9 Retention of urine, unspecified | CPT/HCPCS: 51798; 81003 ==

== ENCOUNTER 2025-03-11 14:06 | Outpatient (AMB) | payer BC, SELFPAY ==
--- OUTSIDE RECORDS SUMMARY | 2025-03-11 15:27 | XMS_ITS | Clinical Summary ---
Author Organization [facility] Address [address] [place] [address] Care Team Providers Care Crop Duster Name Role Phone Michael Olsen MD Primary Care Provider [phone] Allergies Active Allergy Reactions Criticality Noted Date [...] 10/24/2020, Additional history exists Influenza Vaccine (#1) 2025 3, 05/03/2022, 05/11/2021, Additional history exists RSV Adult > 60+ Yrs or (1 - 1-dose 75+ series) 2030 Pneumococcal Vaccine Completed 12/27/2021 Hepatitis B Vaccines Aged Out No long er eligible based on patient's age to complete this topic RSV Ped < 20 months Aged Out No longe r eligible based on patient's age to complete this topic Medical Devices Implanted Type Area Construction Rigger Device Identifier Shelf Expiration Date Model / Serial / Lot Ellington Sut 5.5mm Healicoil Regenesorb 3 Sutures Smn-Endo [id number] - [id number] Implanted:Qty: 1 on 05/08/2023 by Douglas Leonard MD at [facility] Location Left: Shoulder [employer] 01/19/2026 [id number] / / [id number] Implant Bioinductive W Arth Del Med [facility]-Endo [id number] - [id number] Implanted:Qty: 1 on 05/08/2023 by Douglas Leonard MD at [facility] Location Left: Shoulder [employer] 01/21/2026 [id number] / / [id number] Ellington Bone Arthro Del Sys Advncd Smn-Endo [id number] - [id number] Implanted:Qty: 1 on 05/08/2023 by Douglas Leonard MD at [facility] Location Left: Shoulder [employer] 10/03/2025 [id number] / / [id number] Anchors Tendon 8 Smn-Endo [id number] - [id number] Implanted:Qty: 1 on 05/08/2023 by Douglas Leonard MD at [facility] Location Left: Shoulder [employer] 11/11/2025 [id number] / / [id number] Care Teams Crop Duster Relationship Specialty Start Date End Date Michael Olsen MD [address] [facility] Frankie Dillon [email or web address] [address] PCP - General Internal Medicine 04/28/23
--- OUTSIDE RECORDS SUMMARY | 2025-03-11 15:27 | XMS_ITS | Patient Health Record ---
Author Organization [facility] Address [address] [place] [address] Care Team Providers Care Baseball Inspector Name Role Phone Michael Olsen MD Primary Care Provider Dakota Rivera Unavailable [phone] Allergies Allergen (clinical drug ingredient) Drug/Non Drug Allergy documented on EMR Reaction Allergy Type Onset Date Status amoxicillin Amoxicillin Unknown Drug Allergy Act awilda Reason For Referral No Information Medications Medication SIG (Take, Route, Fr equency, Duration) Notes Start Date End Date Status Estradiol 0.1 MG/GM Vaginal for 90 Active Terazosin HCl 1 MG TAKE 1 CAPSULE BY MO UTH AT BEDTIME Oral for 30 Active Bactrim 400-80 MG 1 tablet Orally Once a day for 10 day(s) Active Immunizations Vaccine Route Administration Date Status Comme nts Influenza Unknown 05/11/2021 Administered Problems Problem Type SNOMED Code ICD Code Onset Dates Problem Status W/U Status Risk Notes Problem 602158734 Encounter for screening for malignant neoplasm of colon (Z12.11) Active confirmed Problem Screening for malignant neoplasm of rectum (868262520) Encounter for screening for malignant neoplasm of rectum (Z12.12) Active confirmed Problem 53050250 Preprocedural examination (Z01.818) Active confirmed Problem 867897253 Family history o f colon cancer (Z80.0) Active confirmed Problem 330581777 Hx of adenomatou s colonic polyps (Z86.010) Active confirmed Problem 246681255064888 Pre-procedural examination (Z01.818) Active confirmed Problem Diverticulosis of colon (571170641) Diverticulosis of colon (K57.30) Active confirmed Plan Of Treatment Future Test Test Name Order Date COLONOSCOPY 06/22/2016 COLONOSCOPY 11/03/2021 Insurance Providers Payer Name Payer Address Payer Phone Subscriber Number Group Number Insured Name Patient Relationship to Insured Coverage Start Date Coverage End Date [facility] [address] [place] [address] [id number] El[address]isa BAILON Self - patient is the insured Medical (General) History Medical History History ICD Code Colonoscopy 05/2006--negative except for internal hemorrhoids GERD-EGD in 05/2006--small H H-no esophagitis, no Elmore's---benign gastic polyps Denies WA,DM,CVA,Lung disease,renal dise ase Colonoscopy 09/2016 with a small tubular adenoma Surgical History Surgery Date(Month/Year) Tonsillectomy Appendectomy Back surgery L4/L5 Decompression 10/2021
--- OUTSIDE RECORDS SUMMARY | 2025-03-11 15:27 | XMS_ITS | Clinical Summary ---
Author Organization [facility] Address [address] [facility] [address] [place] [address] Phone Care Team Providers Care An/Sqq 89(V)15 Sonar System Journeyman Name Role Phone Michael Olsen MD Primary Care Provider [phone] Dakota Pfeiffer MD Unavailable [phone] Allergies Active Allergy Reactions Criticality Noted Date Comments Amoxicillin Itching 08/05/2019 Latex Rash Low 05/04/2023 Medications multivitamin-mi nerals-lutein (CENTRUM SILVER) Tab Take 1 tablet by mouth daily. Active Ca cit-D3-mag#11-z fmj-qaqe-wrt-mauricio r (CALTRATE 600+D) 600 mg calcium- 800 unit-50 mg Tab Take 1 tablet by mouth daily. Active Medication-Free Text Pt goes for allergy injections every month at [facility] Dr. Peterson Active estradioL (ESTRACE) 0.01 % (0.1 mg/gram) vaginal cream APPLY PEA-SIZED TO THE URETHRA 3 TIMES A WEEK 2 Active naproxen sodium (ALEVE) 220 MG tablet Take 1 tablet by mouth as needed. 3 Active Active Problems Problem Noted Date Diagnosed Date Poison corbin 04/17/2024 Overview (04/17/2024): 03/14/24 [facility], benadryl at Frequent UTI 03/27/2024 Overview (03/27/2024): Follows with Uro SYDNIE Burns [facility] urology last visit 02/26/24 cont vit c, [...] Elevated cholesterol 11/22/2019 Thrombocytopenia Allergic rhinitis Immunizations Immunization Administration Dates Next Due COVID-19 (Pre-05/15) Pfizer Vaccine, Bivalent 12+ 05/27/2022 COVID-19 (Pre-05/15) Pfizer Vaccine, mRNA, PF 06/19/2021,10/24/2020,10/03/2020 COVID-19 Pfizer Comirnaty Vaccine 12+ 05/25/2023 COVID-19, Unspecified Formulation 05/02/2024 INFLUENZA, SPLIT VIRUS, TRIV ALENT W/ PRESERVATIVE IM 05/11/2021 Influenza High-Dose Quadriva lent Preservative Free IM 05/03/2022,05/04/2021 Influenza Quadrivalent Preservative Free IM 02/23 Influenza, Unspecified Formulation 05/30/2024, Pneumococcal conjugate PCV20 12/27/2021 Td (adult) 5 [...] or tries to control you? No 11/19/2024 Comments No Sex and Gender Information Value Date Recorded Sex Assigned at Not on file Legal Sex Female 11:40 AM EST Gender Identity Not on file Sexual Orientation Not on file Last Filed Vital Signs Vital Sign Reading Time Taken Comments Blood Pressure 107/54 11/25/2024 8:21 AM EDT Pulse 73 11/25/2024 8:21 AM EDT Temperature 36.3 C (97.4 F) 11/25/2024 8:21 AM EDT Respiratory Rate 20 11/25/2024 8:21 AM EDT Oxygen Saturation 97% 11/25/2024 8:21 AM EDT Inhaled Oxygen Concentration - - Weight 88 kg (194 lb) 11/25/2024 8:21 AM EDT Height 174.8 cm (5' 8.82 ) 11/25/2024 8:21 AM ED T Body Mass Index 28.8 11/25/2024 8:21 AM EDT Plan of Treatment Upcoming Encounters Date Type Department Care Team (Late st Contact Info) Description 12/03/2025 8:00 AM EDT Office Visit [facility] Internal Medicine [address] [place] [address] Michael Olsen MD [address] [place] [address] [email or web address] Health Maintenance Due Date Last Done Comments COLOGUARD 2000 FIT TEST 2000 FOBT 2000 SIGMOIDOSCOPY 2000 VIRTUAL COLONOSCOPY 2000 ZOSTER VACCINES (1 of 2) 2005 09/25/2016 COVID-19 VACCINE ( season) 2024 05/02/2024, 05/25/2023, 05/27/2022, Additional history exists DEPRESSION SCREENING 11/19/2025 11/19/2024 MAMMOGRAM 05/08/2026 05/08/2024, 04/23, 05/08/2024, Additional history exists COLONOSCOPY 04/08/2027 04/08/2022, 09/23/2016 COLORECTAL CANCER SCREENING 04/08/2027 SCREENING FOR DIABETES 11/26/2027 , 11/25/2024, 02/12/2019 LIPID PANEL 11/25/2029 11/25/2024, 11/21, 12/02/2023, Additional history exists RSV VACCINE (1 - 1-dose 75+ series) 2030 Adult Td,Tdap Booster 11/20/2033 11/21/2023, 014 HEPATITIS C SCREENING Completed 02/04/2020 PNEUMOCOCCAL VACCINES (50+ years) Completed 12/27/2021 OSTEOPOROSIS SCREENING INITIAL (ONE-TIME) Completed 04/13/2023, 03/31/2017 SMOKING STATUS SCREENING (Once After 26 Yrs) Completed 11/25/2024 HEPATITIS A VACCINES Aged Out No long er eligible based on patient's age to complete this topic HIB VACCINES Aged Out No longer eligi ble based on patient's age to complete this topic MENINGOCOCCAL VACCINES (ACWY) Aged Out No longer eligible based on patient's age to complete this topic MENINGOCOCCAL VACCINES (B) Aged Out N o longer eligible based on patient's age to complete this topic Medical Devices Not on file Procedures Procedure Name Priority Date/Time Associated Diagnosis Comments LIPID PANEL Routine 11/25/2024 10:14 AM EDT Routine general medical examination at a [facility] care facility MAMMOGRAPHY Routine 05/08/2024 4:27 PM EDT DEXA SCAN Routine 04/13/2023 COLONOSCOPY FOR RESULT ENTRY ONLY Routine 04/08/2022 HEPATITIS C ANTIBODY, QUALITATIVE Routine 02/04/2020 8:04 AM EDT Need for hepatitis C screening test OUTSIDE GLUCOSE FASTING Routine 02/12/2019 from Last 3 Months or Most Recently Relevant to Health Maintenance Results * (ABNORMAL) Lipid panel (11/25/2024 10:14 AM EDT) HDL 65 mg/dL [facility] Comment: Interpretation <40 mg/dL: Low HDL cholesterol (major risk factor for CHD) Greater than or equal to 60 mg/dL: High HDL cholesterol ( negative risk factor for CHD) HDL - cholesterol is affected by a number of factors, e.g. smoking, excerise, hormones, sex and age. CHOLESTEROL 210 0 - 240 mg/dL [facility] TRIGLYCERIDES 85 30 - 160 mg/dL [facility] LDL 128 50 - 129 mg/dL [facility] Comment: LDL levels in terms of risk for coronary heart disease: <100 mg/dL: Optimal 100-129 mg/dL: Near or above optimal 130-159 mg/dL: Borderline high 160-189 mg/dL: High >190 mg/dL: Very High CARDIAC RISK RATIO 3.2(L) 3.3 - 4.4 C [facility] Blood 11/25/2024 10:1 4 AM EDT 11/25/2024 10:15 AM EDT us Michael Olsen MD LAB BLOOD ORDERABLES Final Re sult Performing Organization Address [facility] de Phone Number [address] [address] * HM MAMMOGRAPHY FOR RESULT ENTRY ONLY (05/08/2024 4:27 PM EDT) Historical Provider HEALTH MAINTENANCE Final Result * HM DEXA SCAN (04/13/2023) us Michael Olsen MD HEALTH MAINTENANCE Edited Res ult - Final * HM COLONOSCOPY FOR RESULT ENTRY ONLY (04/08/2022) Historical Provider HEALTH MAINTENANCE Edited Result - Final * Hepatitis C antibody, qualitative (02/04/2020 8:04 AM EDT) HCV NON-REACTIV E NON-REACTI VE [facility] Blood 02/04/2020 8:04 AM EDT 02/04/2020 8:09 AM EDT us Michael Olsen MD LAB BLOOD ORDERABLES Final Re sult Performing Organization Address [facility] Co de Phone Number [address] [place] [address] * Outside Glucose,Fasting (02/12/2019) [facility] Signature Glucose, fasting - External 93 65 - 99 mg/dL us Historical Provider LAB BLOOD ORDERABLES Becky l Result from Last 3 Months or Most Recently Relevant to Health Maintenance Insurance [address] [place], [place] [id number] [employer] EPO [address] [place] [address] PPO EPO [address] [place], [place] [id number] [employer] PPO EPO [address] [place] [address] PPO EPO [address] [place] [address] PPO EPO [address] [place] [id number] [place] [address] PPO EPO [address] [place] [id number] [place] [address] PPO EPO [address] [place] [id number] [employer] P[employer] EPO [address] [place] [id number] [employer] EPO Care Teams An/Sqq 89(V)15 Sonar System Journeyman Relationship Specialty Start Date End Date Michael Olsen MD [address] [place] [address] [email or web address] PCP - General Internal Medicine 10/28/19 Dakota Pfeiffer MD [address] [place] [address] [place] [phone] Gastroenterology 11/22/19 Additional Source Comments The information contained in this document represents components of the legal health record. It is not the complete legal health record.[facility]
--- OUTSIDE RECORDS SUMMARY | 2025-03-11 15:27 | XMS_ITS | Clinical Summary ---
Author Organization 175 [facility] Address 175 [place] [address] Phone Care Team Providers Care Director Electrical Engineering Name Role Phone Michael Olsen MD Primary Care Provider [phone] Allergies Active Allergy Reactions Criticality Noted Date Comments Amoxicillin 10/28/2021 Medications sns-G6-hcz85-zin r-vzs-ryac-bor (Caltrate 600-D Plus Minerals) 600 mg calcium- [...] difficulty. 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 [...] Upcoming Encounters Date Type Department Care Team ([facility] st Contact Info) Description 05/19/2025 10:30 AM EDT Office Visit Orthopedic Surgery - [place] [address] [address] Douglas Leonard MD [address] [address] Health Maintenance Due Date Last Done Comments Breast Cancer Screening 1955 Zoster Vaccines (2 of 3) 11/20/2016 09/25/2016 Colorectal Cancer Screening: Colonoscopy 06/26/2022 Falls Risk Assessment 06/26/2022 Osteoporosis Screening (Bone Density Screening) 06/26/2022 Social Influencers of Health Screening 06/26/2022 COVID-19 Vaccine ( season) 2024 05/25/2023, 05/27/2022, 06/19/2021, Additional history exists Depression Screening 07/24/2024 Influenza Vaccine (#1) 2025 , 05/03/2022, 05/11/2021, [...] this topic Medical Devices Implanted Type Area Information Technology Manager Device Identifier Shelf Expiration Date Model / Serial / Lot [place] Sut 5.5mm Healicoil Regenesorb 3 Sutures [facility] [id number] Implanted:Qty: 1 on 05/08/2023 by Douglas Leonard MD Left: Shoulder [employer] [facility] 01/19/2026 [id number] / / [id number] Implant Bioinductive W Arth Del Med [facility] [id number] Implanted:Qty: 1 on 05/08/2023 by Douglas Leonard MD Left: Shoulder [employer]PHEW - ORTHOPAEDICS 01/21/2026 [id number] / / [id number] [place] Bone Arthro Del Sys Advncd [facility] [id number] Implanted:Qty: 1 on 05/08/2023 by Douglas Leonard MD Left: Shoulder [employer] - ORTHOPA[facility]ICS 10/03/2025 [id number] / / [id number] Anchors Tendon 8 [facility] [id number] Implanted:Qty: 1 on 05/08/2023 by Douglas Leonard MD Left: Shoulder [employer] - [facility]THOPAEDICS 11/11/2025 [id number] / / [id number] Procedures Procedure Name Priority Date/Time Associated Diagnosis [...] Relevant to Health Maintenance Insurance , [address] [place], [place] [id number] [place] [address] Care Teams Director Electrical Engineering Relationship Specialty Start Date End Date Michael Olsen MD [address] [place], [place] [id number] PCP - General Internal Medicine 10/27/21
== END 2025-03-11 14:19 | disposition home or self-care (01) ==
LOC: HO.HMGAL 14:06
PROVIDERS: PCP Internal Medicine; Visit Provider Anesthesiology
DX: J30.89 Other allergic rhinitis (principal)
CPT/HCPCS: 95117; 95165

== ENCOUNTER 2025-04-07 16:14 | Outpatient (AMB) | payer BC, SELFPAY ==
--- OUTSIDE RECORDS SUMMARY | 2025-04-07 21:22 | XMS_ITS | Clinical Summary ---
Author Organization 175 [facility] Address 175 [place] [address] Phone Care Team Providers Care Parks Recreation Coordinator Name Role Phone Michael Olsen MD Primary Care Provider [phone] Allergies Active Allergy Reactions Criticality Noted Date Comments Amoxicillin 10/28/2021 Medications hye-E5-syy77-zin v-xia-dctq-bor (Caltrate 600-D Plus Minerals) 600 mg calcium- [...] difficulty. 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 after [...] Care Team (Late st Contact Info) Description 05/19/2025 10:30 AM EDT Office Visit Orthopedic Surgery - [place] [address] [place] [address] 160 [place] [address] Douglas Leonard MD [address] [place] [phone] Health Maintenance Due Date Last Done Comments Breast Cancer Screening 1955 Zoster Vaccines (2 of 3) 11/20/2016 09/25/2016 Colorectal Cancer Screening: Colonoscopy 06/26/2022 Falls Risk Assessment 06/26/2022 Osteoporosis Screening (Bone Density Screening) 06/26/2022 Social Influencers of Health Screening 06/26/2022 Depression Screening 07/24/2024 COVID-19 Vaccine ( season) 2025 05/25/2023, 05/27/2022, 06/19/2021, Additional history exists Influenza [...] this topic Medical Devices Implanted Type Area Salon Stylist Device Identifier Shelf Expiration Date Model / Serial / Lot [place] Sut 5.5mm Healicoil Regenesorb 3 Sutures [facility] [id number] Implanted:Qty: 1 on 05/08/2023 by Douglas Leonard MD Left: Shoulder [employer]PH - ORTHOPAEDICS 01/19/2026 [id number] / / [id number] Implant Bioinductive W Arth Del Med [facility] [id number] Implanted:Qty: 1 on 05/08/2023 by Douglas Leonard MD Left: Shoulder [employer]HEW - ORTHOPAEDICS 01/21/2026 [id number] / / [id number] [place] Bone Arthro Del Sys Advncd [facility] [id number] Implanted:Qty: 1 on 05/08/2023 by Douglas Leonard MD Left: Shoulder [employer] - ORTHOPAEDICS 10/03/2025 [id number] / / [id number] Anchors Tendon 8 [facility] [id number] Implanted:Qty: 1 on 05/08/2023 by Douglas Leonard MD Left: Shoulder [employer]HEW - ORTHOPAEDICS 11/11/2025 [id number] / / [id number] Procedures Procedure Name Priority Date/Time Associated Diagnosis [...] Relevant to Health Maintenance Insurance , [address] [place], [place] [id number] [place] [address] Care Teams Parks Recreation Coordinator Relationship Specialty Start Date End Date Michael Olsen MD 40 [place], [place] [phone] PCP - General Internal Medicine 10/27/21
--- OUTSIDE RECORDS SUMMARY | 2025-04-07 21:22 | XMS_ITS | Clinical Summary ---
Author Organization [facility] Address [address] [facility] [address] [place] [address] Phone Care Team Providers Care Tray Line Worker Name Role Phone Michael Olsen MD Primary Care Provider [phone] Dakota Pfeiffer MD Unavailable [phone] Allergies Active Allergy Reactions Criticality Noted Date Comments Amoxicillin Itching 08/05/2019 Latex Rash Low 05/04/2023 Medications multivitamin-mi nerals-lutein (CENTRUM SILVER) Tab Take 1 tablet by mouth daily. Active Ca cit-D3-mag#11-z gwi-djad-ska-mauricio r (CALTRATE 600+D) 600 mg calcium- 800 unit-50 mg Tab Take 1 tablet by mouth daily. Active Medication-Free Text Pt goes for allergy injections every [place] [facility] [place] Active estradioL (ESTRACE) 0.01 % [...] Overview (03/27/2024): Follows with [facility] SYDNIE Burns [facility] urology last visit 02/26/24 cont vit c, [...] Description 12/03/2025 8:00 AM EDT Office Visit [facility] Internal Medicine [address] [place] [address] Michael Olsen MD 40 [place] [address] [email or web address] Health Maintenance Due Date Last Done Comments COLOGUARD 2000 FIT TEST 2000 FOBT 2000 SIGMOIDOSCOPY 2000 VIRTUAL COLONOSCOPY 2000 ZOSTER VACCINES (1 of 2) 2005 09/25/2016 INFLUENZA VACCINE (#1) 2025 , 03/23/2023, 05/03/2022, Additional history exists COVID-19 VACCINE ( season) 2025 05/02/2024, 05/25/2023, 05/27/2022, Additional history exists DEPRESSION [...] EDT Routine general medical examination at a health care facility MAMMOGRAPHY Routine 05/08/2024 4:27 PM EDT DEXA SCAN Routine 04/13/2023 COLONOSCOPY FOR RESULT ENTRY ONLY Routine 04/08/2022 HEPATITIS C ANTIBODY, QUALITATIVE Routine 02/04/2020 8:04 AM EDT Need for hepatitis C screening test OUTSIDE GLUCOSE FASTING Routine 02/12/2019 from Last 3 Months or Most Recently Relevant to Health Maintenance Results * (ABNORMAL) Lipid panel (11/25/2024 10:14 AM EDT) HDL 65 mg/dL [facility] Comment: Interpretation <40 mg/dL: Low HDL cholesterol (major risk factor for CHD) Greater than or equal to 60 mg/dL: High HDL cholesterol ( negative risk factor for CHD) HDL - cholesterol is affected by a number of factors, e.g. smoking, excerise, hormones, sex and age. CHOLESTEROL 210 0 - 240 mg/dL [facility] TRIGLYCERIDES 85 30 - 160 mg/dL [facility] LDL 128 50 - 129 mg/dL [facility] Comment: LDL levels in terms of risk for coronary heart disease: <100 mg/dL: Optimal 100-129 mg/dL: Near or above optimal 130-159 mg/dL: Borderline high 160-189 mg/dL: High >190 mg/dL: Very High CARDIAC RISK RATIO 3.2(L) 3.3 - 4.4 [facility] Blood 11/25/2024 10:1 4 AM EDT 11/25/2024 10:15 AM EDT Michael Olsen MD LAB BLOOD ORDERABLES Final Re sult [address] [address] * HM MAMMOGRAPHY FOR RESULT ENTRY ONLY (05/08/2024 4:27 PM EDT) Historical Provider HEALTH MAINTENANCE Final Result * HM DEXA SCAN (04/13/2023) Michael Olsen MD HEALTH MAINTENANCE Edited Res ult - Final * HM COLONOSCOPY FOR RESULT ENTRY ONLY (04/08/2022) Historical Provider HEALTH MAINTENANCE Edited Result - Final * Hepatitis C antibody, qualitative (02/04/2020 8:04 AM EDT) HCV NON-REACTIV E NON-REACTI VE [facility] Blood 02/04/2020 8:04 AM EDT 02/04/2020 8:09 AM EDT us Michael Olsen MD LAB BLOOD ORDERABLES Final Re sult [facility] [address] [place] [address] * Outside Glucose,Fasting (02/12/2019) Glucose, fasting - External 93 65 - 99 mg/dL Historical Provider LAB BLOOD ORDERABLES Becky l Result from Last 3 Months or Most Recently Relevant to Health Maintenance Insurance [address] [place] [address] PPO EPO PPO EPO [address] [place] [address] PPO EPO [address] [place] [address] PPO EPO PPO EPO [address] [place] [address] PPO EPO [address] [place] [address] PPO EPO [address] [place] [address] PPO EPO [facility] PPO EPO Care Teams Tray Line Worker Relationship Specialty Start Date End Date Michael Olsen MD [address] [place] [address] [email or web address] PCP - General Internal Medicine 10/28/19 Dakota Pfeiffer MD [address] [place] [address] [place] [address] Gastroenterology 11/22/19 Additional Source Comments The information contained in this document represents components of the legal health record. It is not the complete legal health record.[facility]
--- OUTSIDE RECORDS SUMMARY | 2025-04-07 21:22 | XMS_ITS | Encounter Summary ---
Author Organization [facility] Address [address] [place] [address] [facility] [address] [place] [address] Phone Care Team Providers Care Manager Of Photography Name Role Phone Michael Olsen MD Primary Care Provider [phone] Dakota Pfeiffer MD Unavailable Reason for Visit * Reason Onset Date Comments Cloudy Urine 12/01/2022 Encounter Details Date Type Department Care Team (Late st Contact Info) Description 12/01/2022 Nurse Triage [facility] Internal Medicine [address] [place] [address] Referring, Not Required Cloudy Urine Social History [...] high school, GED, job training, learning the Faroese language, technical skills, or developing parenting skills)? [...] basis, and looking for work? No 04/30/2022 Comments No Sex and Gender Information Value [...] Follow Advice Disposition Comments: Protocols used: Urinary Vuxyfipl-Yjare-Nu Initial Symptom Screening and Assessment IA None [...] procedure, or surgery. * Your doctor (or FRONT OFFICE COORDINATOR/PA) can help you find out what is causing this problem. Patient will call back with additional questions or if symptoms change or worsen Karen Mckeon RN Reason for Disposition and Assessment Reason for Disposition ??? Urinating more frequently than usual (i.e., frequency) Protocols used: URINARY EKIUFOGP-HGHEM-BK * Nallely Schwartz - 12/01/2022 12:43 PM EDT Patient leaves a voicemail saying she has had cloudy urine since having intercourse last weekend. Please contact and advise. Thanks. documented in this encounter Plan of Treatment Upcoming Encounters Date Type Department Care Team (Late st Contact Info) Description 12/03/2025 8:00 AM EDT Office Visit [facility] Internal Medicine [address] [place] [address] Michael Olsen MD [address] [place] [address] [email or web address] documented as of this encounter Results * (ABNORMAL) Urinalysis w/reflex Urine Culture (12/01/2022 4:19 PM EDT) COLOR Yellow Yellow [facility] CLARITY CLOUDY [facility] GLUCOSE Negative Negative [facility] BILI Negative Negative [facility] KETONES Negative Negative [facility] SPECIFIC GRAVITY 1.015 1.005 - 1.030 [facility] BLOOD 2+(A) Negative [facility] PH 6.0 5.0 - 8.0 [facility] Protein-UA 1+(A) Negative [facility] NITRITE Positive(A) Negative [facility] Leukocyte esterase, ur 3+(A) Negative [facility] Urine (Urine) 12/01/2022 4:1 9 PM EDT 12/01/2022 4:21 PM EDT Kaylah Yeager FRONT OFFICE COORDINATOR URINE ORDERABLES Final Result Performing Organization Address City/State/[facility] Co de Phone Number [facility] [address] [place] [address] documented in this encounter Visit Diagnoses Diagnosis Urinary tract infection symptoms- Primary documented in this encounter Additional Health Concerns Assessment Noted Time PHQ-2 Depression Total Score: 0 04/30/20 22 9:30 AM EDT documented as of this encounter Care Teams Manager Of Photography Relationship Specialty Start Date End Date Michael Olsen MD [address] [place] [address] PCP - General Internal Medicine 10/28/19 Dakota Pfeiffer MD [address] [place] [address] Gastroenterology 11/22/19 documented as of this encounter Additional Source Comments The information contained in this document represents components of the legal health record. It is not the complete legal health record.[facility]
--- OUTSIDE RECORDS SUMMARY | 2025-04-07 21:22 | XMS_ITS | Clinical Summary ---
Author Organization [facility] Address [address] [place] [address] Care Team Providers Care Dry Chain Offbearer Name Role Phone Michael Olsen MD Primary Care Provider [phone] Allergies Active Allergy Reactions Criticality Noted Date [...] Tdap) 03/18/2024 03/18/2014 COVID-19 Vaccine ( season) 2025 05/27/2022, 06/19/2021, 10/24/2020, Additional history exists Influenza [...] this topic Medical Devices Implanted Type Area Filling Station Laborer Device Identifier Shelf Expiration Date Model / Serial / Lot [place] Sut 5.5mm Healicoil Regenesorb 3 Sutures [facility] [id number] - [id number] Implanted:Qty: 1 on 05/08/2023 by Douglas Leonard MD at [facility] Location Left: Shoulder [employer] 01/19/2026 [id number] / / [id number] Implant Bioinductive W Arth Del Med [facility] [id number] - [id number] Implanted:Qty: 1 on 05/08/2023 by Douglas Leonard MD at [facility] Location Left: Shoulder [employer] OR[employer] 01/21/2026 [id number] / / [id number] [place] Bone Arthro Del Sys Advncd [facility] [id number] - [id number] Implanted:Qty: 1 on 05/08/2023 by Douglas Leonard MD at [facility] Location Left: Shoulder [employer] ORTH[employer] 10/03/2025 [id number] / / [id number] Anchors Tendon 8 [facility] [id number] - [id number] Implanted:Qty: 1 on 05/08/2023 by Douglas Leonard MD at [facility] Location Left: Shoulder [employer] ORTH[employer] 11/11/2025 [id number] / / [id number] Care Teams Dry Chain Offbearer Relationship Specialty Start Date End Date Michael Olsen MD 40 [facility] Frankie [place] [employer] [place] [address] PCP - General Internal Medicine 04/28/23
--- OUTSIDE RECORDS SUMMARY | 2025-04-07 21:22 | XMS_ITS | Patient Health Record ---
Author Organization [facility] Address [address] [place] [address] Care Team Providers Care Systems Integration Advisor Name Role Phone Michael Olsen MD Primary Care Provider Dakota Rivera Unavailable [phone] Allergies Allergen (clinical drug ingredient) Drug/Non Drug [...] Problem Status W/U Status Risk Notes Problem [id number] Encounter for screening for malignant neoplasm of colon (Z12.11) Active confirmed Problem Screening for malignant neoplasm of rectum (876273149) Encounter for screening for malignant neoplasm of rectum (Z12.12) Active confirmed Problem 37473831 Preprocedural examination (Z01.818) Active confirmed Problem 075459095 Family history o f colon cancer (Z80.0) Active confirmed Problem 731820723 Hx of adenomatou s colonic polyps (Z86.010) Active confirmed Problem 866745195822852 Pre-procedural examination (Z01.818) Active confirmed Problem Diverticulosis of colon (187032112) Diverticulosis of colon (K57.30) Active confirmed Plan Of Treatment Future Test Test Name Order Date COLONOSCOPY 06/22/2016 COLONOSCOPY 11/03/2021 Insurance Providers Payer Name Payer Address Payer Phone Subscriber Number Group Number Insured Name Patient Relationship to Insured Coverage Start Date Coverage End Date [facility] [employer] [address] [place] [address] [id number]ON Self - patient is the insured Medical (General) History Medical History History ICD Code Colonoscopy 05/2006--negative except for internal hemorrhoids GERD-EGD in 05/2006--small H H-no esophagitis, no Elmore's---benign gastic polyps Denies [place],DM,CVA,Lung disease,renal dise ase Colonoscopy 09/2016 with a small tubular adenoma Surgical History Surgery Date(Month/Year) Tonsillectomy Appendectomy Back surgery L4/L5 Decompression 10/2021
== END 2025-04-07 16:16 | disposition home or self-care (01) ==
LOC: HO.HMGAL 16:14
PROVIDERS: PCP Internal Medicine; Visit Provider Registered Nurse Emergency
DX: J30.89 Other allergic rhinitis (principal)
CPT/HCPCS: 95117; 95165

== ENCOUNTER 2025-05-01 13:23 | Outpatient (AMB) | payer BC, SELFPAY ==
--- NOTE | 2025-05-01 14:02 | A.OFFVIS_ITS ---
Intake Visit Reasons: 3m/PVR Intake Note: patient presents today for: 3mop/PVR urology medications: terazosin, estradiol blood thinners: none today's PVR: 116mls Test Kitchen Home Economist Required: No Accompanied by: Self / Same As Patient Allergies amoxicillin Allergy (Intermediate, Verified 05/01/25 14:33) rash Medication List - Last Reconciled 05/01/25 by DEBBIE Burns acetaminophen ER 650 mg PO Q8H PRN calcium carbonate 500 mg PO DAILY cholecalciferol (vitamin D3) 25 mcg PO DAILY estradiol 0.01%(0.1mg/gram) pea-sized to urethra 3 times a week 30 days terazosin 1 mg PO BEDTIME 90 days HPI Comments Details: Vijaya is a pleasant 69-year-old female patient of Dr. Olsen. She presents to the office today for follow-up of recurrent urinary tract infections and incomplete bladder emptying. In discussion with the patient today she reports to be doing and feeling well. She reports compliance with restart of terazosin as prescribed during last office visit. She denies having had any UTI like symptoms and or urinary tract infections since her last office visit here. Previous urine culture: 12/15: Klebsiella pneumoniae In office urinalysis results reviewed with the patient today. PVR 116 mL which is decreased since last office visit. She reports compliance with Estrace cream as prescribed. She denies any bothersome urinary issues or concerns at this time. Previous workup has included a retroperitoneal ultrasound 01/13 noting bilateral kidneys with no calculi, lesions, and or hydronephrosis noted. The bladder is well distended and normal. Pre void bladder volume is approximately 630 mL. Postvoid bladder volume is approximately 200 mL. When asked she denies urinary urgency, urinary frequency, incontinence, nocturia, hematuria, dysuria, foul smelling urine, changes to urinary stream, flank pain, fever, and or chills. Discussed at length potential causes and affects of incomplete bladder emptying. She does discuss her upcoming fci next year and is looking fo rward to it. She otherwise offers no issues or concerns at this time. 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 Sexual orientation: Straight/Heterosexual Gender identity: Female Female Reproductive History Menstrual Age of Menarche: 12 Review of Systems Const Reports as per HPI Eyes Reports no additional complaints ENT Reports no additional complaints Card Reports no additional complaints Resp Reports no additional complaints GI Reports no additional complaints Reports as per HPI Musc Reports as per HPI Neuro Reports no additional complaints Psych Reports no additional complaints Endo Reports no additional complaints Getachew/Lymph Reports no additional complaints Aller/Immun Reports no additional complaints Physical Exam Const General: cooperative, healthy appearing, comfortable, no acute distress, well developed, alert and awake Orientation/consciousness: patient oriented x3 Limitations: no limitations HEENT Head: Yes normal to inspection, Yes normocephalic and Yes atraumatic Ears: hearing grossly normal bilaterally Eyes General: appearance normal, both eyes and all related structures Neck Neck: Yes normal visual inspection and Yes trachea midline Chest Chest palpation & inspection: normal inspection of the chest Resp Effort & Inspection: normal respiratory effort and able to speak in complete sentences Cardio Rate: regular rate GI Inspection: Yes normal to inspection General: Yes no CVA tenderness Back/Spine/Pelvis Back: no CVA tenderness Skin General skin exam: no rashes or lesions noted Neuro General: patient oriented x3 Extrem General: Yes normal to inspection Psych Appearance: grossly normal and well kempt Mental Status: mental status grossly normal Speech and movement: Normal speech and movement present and Clear speech present Affect: normal affect Attitude: cooperative Thought process: Normal thought process present Thought content: Normal thought content present Insight: Good insight present (Psych) Judgement: Good judgement present (Psych) Office Procedures Post Void Residual Post Residual Void Post Void Residual (PVR): 116 20989-Mmbm Void Residual by ultrasound Results AMB Urinalysis, Automated UA Leukoctes 0 Marnie/uL Last Edit by SANGEETA Blanco on 05/01/25 14:19 UA Nitrite Last Edit by Kendra Terry, [facility] on 05/01/25 14:19 UA Urobilinogen 0.2 mg/dL Last Edit by Kendra Terry [facility] on 05/01/25 14:1 9 UA Protein 0 mg/dL Last Edit by Kendra Terry, [facility] on 05/01/25 14:19 UA pH 6.0 Last Edit by Kendra Terry [facility] on 05/01/25 14:19 UA Blood 0 Lokesh/uL Last Edit by Kendra Terry [facility] on 05/01/25 14:19 UA Specific [place] 1.015 Last Edit by Kendra Terry [facility] on 05/01/25 14: 19 UA Ketone Last Edit by Kendra Terry [facility] on 05/01/25 14:19 UA Bilirubin 0 mg/dL Last Edit by Kendra Terry [facility] on 05/01/25 14:19 UA Glucose 0 mg/dL Last Edit by Kendra Terry [facility] on 05/01/25 14:19 Results Reviewed Results Reviewed: Laboratory Last Values Urine pH (Auto) 6.0 05/01/25 14:18 Specific [place] (Auto) 1.015 05/01/25 14:18 Urine Protein (Auto) 0 mg/dL 05/01/25 14:18 Glucose (UA)(Auto) 0 mg/dL 05/01/25 14:18 Urine Blood (Auto) 0 Lokesh/uL 05/01/25 14:18 Urine Bilirubin (Auto) 0 mg/dL 05/01/25 14:18 Urine Urobilinogen (Auto) 0.2 mg/dL 05/01/25 14:18 Leukocyte Esterase (Auto) 0 Marnie/uL 05/01/25 14:18 Assessment & Plan Assessment & Plan (1) Urinary retention with incomplete bladder emptying: Code(s): R33.9 - Retention of urine, unspecified Category: Medical (2) Recurrent UTI: Code(s): N39.0 - Urinary tract infection, site not specified Category: Medical Plan In office urinalysis results reviewed with the patient today; as noted above. PVR 116 mL. Continue terazosin as discussed and prescribed; refill provided. We did discussed at length potential causes of incomplete bladder emptying as well as further treatment options and risks and benefits of these treatment options. Continue Estrace cream as discussed and prescribed. We also discussed attempting to double void to assist with incomplete bladder emptying. She currently denies any bothersome urinary issues. She reports be happy with current voiding parameters. Follow-up in 6 months with PVR; or sooner with any issues, concerns, and or questions. Orders: Orders AMB Post Void Residual by ultrasound Today R33.9 - Retention of urine, unspecified AMB Urinalysis Automated Today Z13.9 - Encounter for screening, unspecified Patient Instructions: The patient had an opportunity to ask questions regarding the treatment plan. All questions were answered. Physical exam, labs, and imaging were discussed and reviewed in detail. As well as risks, benefits, and discussion of treatment choices. No major barriers to understanding were identified. The patient expressed understanding and agreement with the above treatment plan. The patient was made aware they should contact our office by phone for worsening of their current condition, the appearance of new symptoms, or with any questions or concerns. Compliance is encouraged with any medications and follow up testing that is ordered. It is a privilege to be allowed the opportunity to participate in? your urological care.? Again, if you have any questions or concerns If you have any questions or concerns please do not hesitate to contact me. The office is [phone]. This note is constructed using voice recognition software. While every effort has been made to ensure accuracy case coordinator errors may have been included. Yours sincerely, DEBBIE Burns Coding Level of Care Code Est Pt Level 3 (41478) Complex EM visit Add On G2211 Diagnoses Urinary retention with incomplete bladder emptying R33.9 Recurrent UTI N39.0 CPT Codes Post Residual Void - PVR CPT Code: 83974-Cncl Void Residual by ultrasound ([id number])
== END 2025-05-01 14:31 | disposition home or self-care (01) ==
LOC: HO.HUSH 13:23
PROVIDERS: PCP Internal Medicine; Visit Provider Nurse Practitioner Family
DX: R33.9 Retention of urine, unspecified (principal); N39.0 Urinary tract infection, site not specified; Z13.9 Encounter for screening, unspecified
CPT/HCPCS: 99213

== ENCOUNTER → 2025-05-01 13:23 | Outpatient (BNVA) | payer BC, SELFPAY | PROVIDERS: PCP Internal Medicine; Visit Provider Nurse Practitioner Family | DX: N39.0 Urinary tract infection, site not specified (principal); R33.9 Retention of urine, unspecified | CPT/HCPCS: 51798; 81003 ==

== ENCOUNTER 2025-05-12 11:39 | Outpatient (AMB) | payer BC, SELFPAY | END 2025-05-12 11:39 | disposition home or self-care (01) | LOC: HO.HMGAL 11:39 | PROVIDERS: PCP Internal Medicine; Visit Provider Registered Nurse Emergency | DX: J30.89 Other allergic rhinitis (principal) | CPT/HCPCS: 95117; 95165 ==

== ENCOUNTER 2025-05-21 07:26 | Outpatient (REF) | payer BC, SELFPAY ==
--- OUTSIDE RECORDS SUMMARY | 2025-05-19 10:30 | XMS_ITS | Encounter Summary ---
Author Organization [facility] Address [address] [place] [address] Care Team Providers Care Notching Press Operator Name Role Phone Michael Olsen MD Primary Care Provider [phone] Reason for Referral * Consultation (Routine) - Pending Review Specialty Diagnoses / Procedures Referred By Lee tran Referred To Contact Physical Therapy Diagnoses Impingement of right shoulder Right rotator cuff tendinitis Douglas Leonard MD [address] [place] [phone] Phone: tel: fax: Referral ID Status Reason Start Date Expiration Date Visits Requested Visits Authorized [id number] Pending Review Specialty Services Required 05/19/2026 1 1 Scheduling Instructions Lisette [place], [place] Reason for Visit * Reason Comments Follow-up F/U Left RTC Encounter Details Date Type Department Care Team (Late st Contact Info) Description 05/19/2025 10:30 AM EDT Office Visit Orthopedic Surgery - [place] [address] [place] [address] Douglas Leonard MD [address] [place] [phone] Impingement of right shoulder (Primary Dx); Right rotator cuff tendinitis; S/P arthroscopy of left shoulder Social History Tobacco Use Types Packs/Day Years Used Date Smoking Tobacco: Never Smokeless Tobacco: Never Comments Unknown Sex and Gender Information Value Date Recorded Sex Assigned at Not on file Legal Sex Female 12:22 AM EST Gender Identity Not on file Sexual Orientation Not on file documented as of this encounter Last Filed Vital Signs Vital Sign Reading Time Taken Comments Blood Pressure 124/68 05/19/2025 10:05 AM EDT Pulse 55 05/19/2025 10:05 AM EDT Temperature - - Respiratory Rate - - Oxygen Saturation 99% 05/19/2025 10:05 AM EDT Inhaled Oxygen Concentration - - Weight 87.1 kg (192 lb) 05/19/2025 10:05 AM EDT Height 175.3 cm (5' 9 ) 05/19/2025 10:05 AM EDT Body Mass Index 28.35 05/19/2025 10:05 AM EDT documented in this encounter Progress Notes * Douglas Leonard MD - 05/19/2025 10:30 AM EDT Reason For Visit: Follow-up of the Left Shoulder (F/U Left RTC) Patient: Eloisa Chapman : 1955 VISIT DATE: 05/19/2025 Attestation I asked the patient for permission to use the [employer] system to help with today's visit. They gave consent. HPI: Eloisa Chapman is a 69 y.o. year old female who presents follow up on left shoulder. Status post arthroscopy with debridement and rotator cuff repair by myself approximately 2 years ago. Date of surgery 05/08/2023. Significant glenohumeral DJD noted at the time of arthroscopy. She is doing very wellwith her left shoulder History of Present Illness The patient presents for evaluation of right shoulder pain. She is right-handed and plans to retire next year. The right shoulder, which has not undergone any surgical intervention has been bothering her She experiences minimal pain during activity but notes that the shoulder tires quickly and causes discomfort for 2 to 3 days post-activity. She is not currently engaged in physical therapy exercises and has not had any recent imaging of the right shoulder. She is able to fully elevate her arm, although with some pain. She can perform all tasks with her elbow by her side but experiences difficulty when her arm is away from her side. She believes her fall yard work has been exacerbating her symptoms but does not feel the need for a cortisone injectionas the pain subsides after 2 to 3 days. She takes Aleve nightly to aid sleep and prevent discomfortat night. She underwent a left shoulder arthroscopy on 05/08/2023, which included debridement and repair of aminor rotator cuff tear. At that time, significant arthritis was also noted. She reports no currentissues with the left shoulder, stating that she can perform all desired activities without pain. She is cautious in her movements and avoids strenuous activities. PAST SURGICAL HISTORY: Left shoulder arthroscopy on 05/08/2023. SOCIAL HISTORY Occupations: Working, planning to retire next year Exercise: Working out ROS: GENERAL: negative MUSCULOSKELETAL: See HPI The remainder of the review of systems is noncontributory Allergies: Current Allergies[1] Past Medical History: has no past medical history on file. Social History: Social History Tobacco Use Smoking status: Never Smokeless tobacco: Never Substance Use Topics Alcohol use: Not on file Past Surgeries: Surgical History[2] Medications: Medications Taking[3] Physical Exam: Vitals: 05/19/25 1005 BP: 124/68 BP Location: Right arm Patient Position: Sitting BP Cuff Size: Adult Pulse: 55 SpO2: 99% Weight: 87.1 kg (192 lb) Height: 1.753 m (69 ) APPEARANCE: Alert, oriented, no acute distress SHOULDER RIGHT Physical Exam Integumentary: Skin of the right shoulder looks good. Musculoskeletal: Right shoulder: Balance and posture are good. Muscle tone is good. Full elevation observed with mild pain. External rotation at 80 degrees. Reaches up to L1 level on the back. Normal supraspinatus strength with mild pain to resisted testing. Infraspinatus and subscapularis are normal. Positive Pettit test. Her left shoulder today demonstrates full range of motion and normal strength without any significant painful maneuvers. Imaging: XR Shoulder 2+ Views Left Left shoulder x-rays May 19, 2025. AP, Grashey, Y lateral, axillary views. Subtle degenerative changes of the glenoid and the acromioclavicular joint. No acute osseous abnormalities noted. Assessment and Plan: 1. Impingement of right shoulder 2. Right rotator cuff tendinitis 3. S/P arthroscopy of left shoulder Assessment & Plan 1. Right shoulder pain: The right shoulder gets tired quickly and hurts for two to three days after physical activity. Examination reveals full elevation with a little pain, 80 degrees of external rotation, and normal supraspinatus strength with some pain during resisted testing. There are signs of impingement, including a positive Pettit test. A referral for physical therapy will be made to address the rotator cuff impingement. The physical therapy will include a home exercise program (HEP) to be taught in one session to avoid multiple appointments and co- pays. The patient will continue taking Aleve nightly to manage pain and improve sleep. A baseline set of x-rays will be obtained. If necessary, an MRI may be co nsidered in the future. If the pain becomes unmanageable, a cortisone injection can be administeredupon request. 2. Left shoulder arthritis: The patient underwent a left shoulder arthroscopy on 05/08/2023, which included debridement and repair of a minor rotator cuff tear. At that time, significant arthritis was also noted. X-rays of the left shoulder show no significant failure of the rotator cuff and presence of arthritis. No further intervention is required unless the patient reports new symptoms. Follow-up: The patient will follow up in 3 months. Currently, her left shoulder is doing quite well. Regarding her right shoulder however, we will do a trial of physical therapy exercises. She is quite familiar with physical therapy for the shoulder and a home exercise program will be more than sufficient for her. We will set her up to be taught protocol for right shoulder impingement/rotator cuff tendinitis. I will see her back in 3 months, we will obtain x-rays of her right shoulder at that visit. Physical Therapy: PT/OT referral given today Douglas Leonard MD [1] Allergies Allergen Reactions Amoxicillin Latex Rash [2] Past Surgical History: Procedure Laterality Date APPENDECTOMY PROCEDURE: HISTORICAL APPENDECTOMY; COMMENT: Age 7 SHOULDER SURGERY Left 05/08/2023 PROCEDURE: HISTORICAL SHOULDER SURGERY; COMMENT: RCR TONSILLECTOMY PROCEDURE: HISTORICAL TONSILLECTOMY; COMMENT: Age 5 [3] Outpatient Medications Marked as Taking for the 05/19/25 encounter (Office Visit) with Douglas Leonard MD Medication Sig Dispense Refill [id number] (Caltrate 600-D Plus Minerals) 600 mg calcium- 800 unit-50 mg tabletTake by mouth. conjugated estrogens (Premarin) vaginal cream Place vaginally. estradioL (ESTRACE) 0.01 % (0.1 mg/gram) vaginal cream FOR 30 DAYS PEA-SIZED TO URETHRA 3 TIMES A WEEK ibuprofen (ADVIL,MOTRIN) 800 mg tablet Take 800 mg by mouth every 8 hours as needed. multivit-min/folic acid/lutein (CENTRUM SILVER ORAL) Take by mouth. terazosin (HYTRIN) 1 mg capsule Take 1 mg by mouth at bedtime. documented in this encounter Plan of Treatment Upcoming Encounters Date Type Department Care Team (Late st Contact Info) Description 08/20/2025 10:30 AM EST Office Visit Orthopedic Surgery - [address] [phone] Douglas Leonard MD [address] [place] [phone] Scheduled Referrals Name Type Priority Associated Diagnoses Order Schedule Ambulatory referral to Physical Therapy and Athletic Training Outpatient Referral Routine Impingement of right shoulder Right rotator cuff tendinitis 1 Occurrences starting 05/19/2025 until 05/19/2026 documented as of this encounter Visit Diagnoses Diagnosis Impingement of right shoulder- Primary Right rotator cuff tendinitis S/P arthroscopy of left shoulder documented in this encounter Historical Medications * This list may reflect changes made after this encounter. estradioL (ESTRACE) 0.01 % (0.1 mg/gram) vaginal cream FOR 30 DAYS PEA-SIZED TO URETHRA 3 TIMES A WEEK added in this encounter Care Teams Notching Press Operator Relationship Specialty Start Date End Date Michael Olsen MD [address] [place] [address] PCP - General Internal Medicine 10/27/21 documented as of this encounter
--- OUTSIDE RECORDS SUMMARY | 2025-05-21 07:29 | XMS_ITS | Clinical Summary ---
Author Organization [facility] Address [address] [place] [address] Phone Care Team Providers Care Remote Sensing Technician Name Role Phone Michael Olsen MD Primary Care Provider [phone] Allergies Active Allergy Reactions Criticality Noted Date Comments Amoxicillin 10/28/2021 Latex Rash Low 05/04/2023 Medications [id number] (Caltrate 600-D Plus Minerals) 600 mg calcium- 800 unit-50 mg tablet Take by mouth. Active multivit-min/fo lic acid/lutein (CENTRUM SILVER ORAL) Take by mouth. Active conjugated estrogens (Premarin) vaginal cream Place vaginally. Active ibuprofen (ADVIL,MOTRIN) 800 mg tablet Take 800 mg by mouth every 8 hours as needed. Active terazosin (HYTRIN) 1 mg capsule Take 1 mg by mouth at bedtime. Active estradioL (ESTRACE) 0.01 % (0.1 mg/gram) vaginal cream FOR 30 DAYS PEA-SIZED TO URETHRA 3 TIMES A WEEK Active Active Problems Problem Noted Date Diagnosed [...] difficulty. 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 Encounters Date Type Department Care Team Description 05/19/2025 10:30 AM EDT Office Visit Orthopedic Surgery - [place] [address] [place] [phone] Douglas Leonard MD Impingement of right shoulder (Primary Dx); Right rotator cuff tendinitis; S/P arthroscopy of left shoulder from Last 3 Months Surgical History Surgery Date Site/Laterality Comments TONSILLECTOMY [...] Mass Index 28.35 05/19/2025 10:05 AM EDT Plan of Treatment Upcoming Encounters Date Type Department Care Team (Late st Contact Info) Description 08/20/2025 10:30 AM EST Office Visit Orthopedic Surgery - [place] [address] [place] [address] [address] [place] [address] Douglas Leonard MD [address] [place] [phone] Health Maintenance Due Date Last Done Comments Breast Cancer Screening 1955 Colorectal Cancer Screening: Colonoscopy 1955 Zoster Vaccines (2 of 3) 11/20/2016 09/25/2016 Falls Risk Assessment 06/26/2022 Osteoporosis Screening (Bone Density Screening) 06/26/2022 Social Influencers of Health Screening 06/26/2022 Depression Screening 07/24/2024 COVID-19 Vaccine (7 - 2024-25 season) 2025 05/02/2024, 05/25/2023, 05/27/2022, Additional history exists Influenza Vaccine (#1) 2025 , 03/23/2023, 05/03/2022, Additional history exists Cholesterol Screening (Lipid Panel) 11/25/2029 11/25/2024, 05/03/2022 RSV Immunization Adult Patients (1 - [...] this topic Medical Devices Implanted Type Area Vegetable Harvest Machine Operator Device Identifier Shelf Expiration Date Model / Serial / Lot Gardiner Sut 5.5mm Healicoil Regenesorb 3 Sutures [facility] [id number] Implanted:Qty: 1 on 05/08/2023 by Douglas Leonard MD Left: Shoulder [employer]PHEW - ORTHOPAEDICS 01/19/2026 [id number] / / [id number] Implant Bioinductive W Arth Del Med [facility] [id number] Implanted:Qty: 1 on 05/08/2023 by Douglas Leonard MD Left: Shoulder [employer]PHEW - ORTHOPAEDICS 01/21/2026 [id number] / / [id number] Gardiner Bone Arthro Del Sys Advncd [facility] [id number] Implanted:Qty: 1 on 05/08/2023 by Douglas Leonard MD Left: Shoulder [employer]PHEW - ORTHOPAEDICS 10/03/2025 [id number] / / [id number] Anchors Tendon 8 Smn-Endo [id number] Implanted:Qty: 1 on 05/08/2023 by Douglas Leonard MD Left: Shoulder [employer]LEY AND NEPH - ORTHOPAEDICS 11/11/2025 [id number] / / [id number] Procedures Procedure Name Priority Date/Time Associated Diagnosis Comments XR SHOULDER 2+ VIEWS LEFT Routine 05/19/2025 10:14 AM EDT Left shoulder pain, unspecified chronicity LIPID PANEL Routine 05/03/2022 from Last 3 Months or Most Recently Relevant to Health Maintenance Results * XR Shoulder 2+ Views Left (05/19/2025 10:14 AM EDT) Anatomical Region Laterality Modality Upper Extremities, Shoulder Left Comp uted Radiography Narrative 05/19/2025 10:17 AM EDT Left shoulder x-rays May 19, 2025. AP, Grashey, Y lateral, axillary views. Subtle degenerative changes of the glenoid and the acromioclavicular joint. No acute osseous abnormalities noted. Douglas Leonard MD IMG XR PROCEDURES Final Result * Lipid panel (05/03/2022) LDL/HDL Ratio 0 Comment:No Interpretation Triglycerides 0 mg/dL Comment:No Interpretation Cholesterol 0 mg/dL Comment:No Interpretation HDL 0 mg/dL Comment:No Interpretation LDL Cholesterol 0 mg/dL Comment:No Interpretation Blood Venous blood specimen / Unknown Historical Provider LAB BLOOD ORDERABLES Becky l Result from Last 3 Months or Most Recently Relevant to Health Maintenance Insurance [id number] Care Teams Remote Sensing Technician Relationship Specialty Start Date End Date Michael Olsen MD [address] [place], [place] [phone] PCP - General Internal Medicine 10/27/21
--- OUTSIDE RECORDS SUMMARY | 2025-05-21 07:29 | XMS_ITS | Encounter Summary ---
Author Organization [facility] Address [address] [facility] [address] [place] [address] Phone Care Team Providers Care Marine Underwriter Name Role Phone Michael Olsen MD Primary Care Provider [phone] Dakota Pfeiffer MD Unavailable [phone] Reason for Visit * Reason Onset Date Comments Cloudy Urine 12/01/2022 Encounter Details Date Type Department Care Team (Late st Contact Info) Description 12/01/2022 Nurse Triage [facility] Internal Medicine [address] [place] [address] Referring, Not Required Cloudy Urine Social History [...] high school, GED, job training, learning the [place] Citizen language, technical skills, or developing parenting skills)? [...] Follow Advice Disposition Comments: Protocols used: Urinary Tiebdfaj-Xnabp-Ap Initial Symptom Screening and Assessment IA None [...] procedure, or surgery. * Your doctor (or HEALTH PROGRAM SPECIALIST/PA) can help you find out what is causing this problem. Patient will call back with additional questions or if symptoms change or worsen Karen Mckeon RN Reason for Disposition and Assessment Reason for Disposition ??? Urinating more frequently than usual (i.e., frequency) Protocols used: URINARY [id number] * Nallely Schwartz - 12/01/2022 12:43 PM EDT Patient leaves a voicemail saying she has had cloudy urine since having intercourse last weekend. Please contact and advise. Thanks. documented in this encounter Plan of Treatment Upcoming Encounters Date Type Department Care Team (Late st Contact Info) Description 12/03/2025 8:00 AM EDT Office Visit [facility] Internal Medicine [address] [place] [address] Michael Olsen MD [address] [place] [address] [email or web address] documented as of this encounter Results * (ABNORMAL) Urinalysis w/reflex Urine Culture (12/01/2022 4:19 PM EDT) COLOR Yellow Yellow CLARITY CLOUDY GLUCOSE Negative Negative BILI Negative Negative KETONES Negative Negative SPECIFIC GRAVITY 1.015 1.005 - 1.030 BLOOD 2+(A) Negative PH 6.0 5.0 - 8.0 Protein-UA 1+(A) Negative NITRITE Positive(A) Negative Leukocyte esterase, ur 3+(A) Negative Urine (Urine) 12/01/2022 4:1 9 PM EDT 12/01/2022 4:21 PM EDT Kaylah Yeager HEALTH PROGRAM SPECIALIST URINE ORDERABLES Final Result Performing Organization Address City/State/[facility] Co de Phone Number [address] [place] [address] documented in this encounter Visit Diagnoses Diagnosis Urinary tract infection symptoms- Primary documented in this encounter Additional Health Concerns Assessment Noted Time PHQ-2 Depression Total Score: 0 04/30/20 22 9:30 AM EDT documented as of this encounter Care Teams Marine Underwriter Relationship Specialty Start Date End Date Michael Olsen MD [address] [place] [address] PCP - General Internal Medicine 10/28/19 Dakota Pfeiffer MD [address] [place] [address] Gastroenterology 11/22/19 documented as of this encounter Additional Source Comments The information contained in this document represents components of the legal health record. It is not the complete legal health record.[facility]
--- OUTSIDE RECORDS SUMMARY | 2025-05-21 07:29 | XMS_ITS | Patient Health Record ---
Author Organization [facility] Address [address] [place] [address] Care Team Providers Care Loom Control Chain Builder Name Role Phone Michael Olsen MD Primary Care Provider Dakota Rivera [phone] Allergies Allergen (clinical drug ingredient) Drug/Non Drug Allergy documented on EMR Reaction Allergy Type Onset Date Status amoxicillin Amoxicillin Unknown Drug Allergy Act awilda Reason For Referral No Information Medications Medication SIG (Take, Route, Fr equency, Duration) Notes Start Date End Date Status Estradiol 0.1 MG/GM Vaginal; Duration: 90 Active Terazosin HCl 1 MG TAKE 1 CAPSULE BY MO UTH AT BEDTIME Oral; Duration: 30 Activ e Bactrim 400-80 MG 1 tablet Orally Once a day; Duration: 10 day(s) Active Immunizations Vaccine Route Administration Date Status Comme nts Influenza Unknown 05/11/2021 Administered Problems Problem Type SNOMED Code ICD Code Onset Dates Problem Status W/U Status Risk Notes Problem Screening for malignant neoplasm of colon (585394565) Encounter for screening for malignant neoplasm of colon (Z12.11) Active confirmed Problem Screening for malignant neoplasm of rectum (640007066) Encounter for screening for malignant neoplasm of rectum (Z12.12) Active confirmed Problem Preprocedural examination (545034073792244) Preprocedural examination (Z01.818) Active confirmed Problem Family History of Cancer of Colon (Situation) (577530119) Family history of colon cancer (Z80.0) Active confirmed Problem History of adenomatous polyp of colon (212629024) Hx of adenomatous colonic polyps (Z86.010) Active confirmed Problem Pre-procedure evaluation check (618380723) Pre-procedural examination (Z01.818) Active confirmed Problem Diverticulosis of colon (395050372) Diverticulosis of colon (K57.30) Active confirmed Encounters Encounter Location Date Provider Diagnosis [facility] [address] [place] [address] 05/02/2025 Dakota Pfeiffer Plan Of Treatment Future Test Test Name Order Date COLONOSCOPY 06/22/2016 COLONOSCOPY 11/03/2021 Insurance Providers Payer Name Payer Address Payer Phone Subscriber Number Group Number Insured Name Patient Relationship to Insured Coverage Start Date Coverage End Date [facility] [address] [place] [address] [phone] [id number] Eloisa BAILON Self - patient is the insured Medical (General) History Medical History History ICD Code Colonoscopy 05/2006--negative except for internal hemorrhoids GERD-EGD in 05/2006--small H H-no esophagitis, no Elmore's---benign gastic polyps Denies GA,DM,CVA,Lung disease,renal dise ase Colonoscopy 09/2016 with a small tubular adenoma Surgical History Surgery Date(Month/Year) Tonsillectomy Appendectomy Back surgery L4/L5 Decompression 10/2021
--- OUTSIDE RECORDS SUMMARY | 2025-05-21 07:29 | XMS_ITS | Clinical Summary ---
Author Organization [facility] Address [address] [place] [address] Care Team Providers Care Railroad Inspector Name Role Phone Michael Olsen MD Primary Care Provider [phone] Allergies Active Allergy Reactions Criticality Noted Date [...] this topic Medical Devices Implanted Type Area Injection Mold Technician Device Identifier Shelf Expiration Date Model / Serial / Lot [place] Sut 5.5mm Healicoil Regenesorb 3 Sutures Smn-Endo [id number] - [id number] Implanted:Qty: 1 on 05/08/2023 by Douglas Leonard MD at [facility] Location Left: Shoulder [employer] 01/19/2026 [id number] / / [id number] Implant Bioinductive W Arth Del Med [facility]-Endo [id number] - [id number] Implanted:Qty: 1 on 05/08/2023 by Douglas Leonard MD at [facility] Location Left: Shoulder [employer] 01/21/2026 [id number] / / [id number] Newport Bone Arthro Del Sys Advncd [facility]n-Endo [id number] - [id number] Implanted:Qty: 1 on 05/08/2023 by Douglas Leonard MD at [facility] Location Left: Shoulder [employer] 10/03/2025 [id number] / / [id number] Anchors Tendon 8 Smn-Endo [id number] - [id number] Implanted:Qty: 1 on 05/08/2023 by Douglas Leonard MD at [facility] Location Left: Shoulder [employer] 11/11/2025 [id number] / / [id number] Care Teams Railroad Inspector Relationship Specialty Start Date End Date Michael Olsen MD [address] [facility] Frankie Dillon [facility] [place] [address] PCP - General Internal Medicine 04/28/23
--- OUTSIDE RECORDS SUMMARY | 2025-05-21 07:29 | XMS_ITS | Clinical Summary ---
Author Organization [facility] Address [address] [address] Phone Care Team Providers Care Geothermal Powerplant Mechanic Helper Name Role Phone Michael Olsen MD Primary Care Provider [phone] Dakota Pfeiffer MD Unavailable [phone] Allergies Active Allergy Reactions Criticality Noted Date Comments Amoxicillin Itching 08/05/2019 Latex Rash Low 05/04/2023 Medications multivitamin-mi nerals-lutein (CENTRUM SILVER) Tab Take 1 tablet by mouth daily. Active Ca cit-D3-mag#11-z lhr-bgqo-yoz-mauricio r (CALTRATE 600+D) 600 mg calcium- 800 unit-50 mg Tab Take 1 tablet by mouth daily. Active Medication-Free Text Pt goes for allergy injections every month at [facility] Dr. Peterson Active estradioL (ESTRACE) 0.01 % (0.1 mg/gram) vaginal cream APPLY PEA-SIZED TO THE URETHRA 3 TIMES A WEEK 2 Active naproxen sodium (ALEVE) 220 MG tablet Take 1 tablet by mouth as needed. 3 Active Active Problems Problem Noted Date Diagnosed Date Poison corbin 04/17/2024 Overview (04/17/2024): 03/14/24 [facility] hydrocortisone, benadryl at Frequent UTI 03/27/2024 Overview (03/27/2024): Follows with [facility] SYDNIE Burns [facility] urology last visit 02/26/24 cont vit c, [...] Description 12/03/2025 8:00 AM EDT Office Visit [facility] Internal Medicine [address] [place] [address] Michael Olsen MD [address] [place] [address] [email or web address] Health Maintenance Due Date Last Done Comments [...] (11/25/2024 10:14 AM EDT) HDL 65 mg/dL [facility] Comment: Interpretation <40 mg/dL: Low HDL cholesterol (major risk factor for CHD) Greater than or equal to 60 mg/dL: High HDL cholesterol ( negative risk factor for CHD) HDL - cholesterol is affected by a number of factors, e.g. smoking, excerise, hormones, sex and age. CHOLESTEROL 210 0 - 240 mg/dL [facility] TRIGLYCERIDES 85 30 - 160 mg/dL [facility] LDL 128 50 - 129 mg/dL [facility] Comment: LDL levels in terms of risk for coronary heart disease: <100 mg/dL: Optimal 100-129 mg/dL: Near or above optimal 130-159 mg/dL: Borderline high 160-189 mg/dL: High >190 mg/dL: Very High CARDIAC RISK RATIO 3.2(L) 3.3 - 4.4 C [facility] Blood 11/25/2024 10:1 4 AM EDT 11/25/2024 10:15 AM EDT Michael Olsen MD LAB BLOOD ORDERABLES Final Re sult [address] [address] * HM MAMMOGRAPHY FOR RESULT ENTRY ONLY (05/08/2024 4:27 PM EDT) Historical Provider HEALTH MAINTENANCE Final Result * HM DEXA SCAN (04/13/2023) Michael Olsen MD HEALTH MAINTENANCE Edited Res ult - Final * HM COLONOSCOPY FOR RESULT ENTRY ONLY (04/08/2022) Historical Provider HEALTH MAINTENANCE Edited Result - Final * Hepatitis C antibody, qualitative (02/04/2020 8:04 AM EDT) HCV NON-REACTIV E NON-REACTI VE [facility] Blood 02/04/2020 8:04 AM EDT 02/04/2020 8:09 AM EDT us Michael Olsen MD LAB BLOOD ORDERABLES Final Re sult [facility] [address] [place] [address] * Outside Glucose,Fasting (02/12/2019) Glucose, fasting - External 93 65 - 99 mg/dL Historical Provider LAB BLOOD ORDERABLES Becky l Result from Last 3 Months or Most Recently Relevant to Health Maintenance Insurance [address] [place] [address] PPO EPO PPO EPO [address] [place] [address] PPO EPO [address] [place] [address] PPO EPO PPO EPO [address] [place] [address] PPO EPO [address] [place] [address] PPO EPO [address] [place] [address] PPO EPO [facility] PPO EPO Care Teams Geothermal Powerplant Mechanic Helper Relationship Specialty Start Date End Date Michael Olsen MD [address] [place] [address] [email or web address] PCP - General Internal Medicine 10/28/19 Dakota Pfeiffer MD [address] [place] [address] [place] [address] Gastroenterology 11/22/19 Additional Source Comments The information contained in this document represents components of the legal health record. It is not the complete legal health record.[facility]
== END 2025-05-21 07:27 | disposition home or self-care (01) ==
LOC: HO.MAMMO 07:26
PROVIDERS: PCP Internal Medicine; Visit Provider Internal Medicine
DX: Z12.31 Encounter for screening mammogram for malignant neoplasm of breast (principal)
CPT/HCPCS: 77063; 77067

== ENCOUNTER → 2025-05-21 07:45 | Outpatient (BNV) | payer BC, SELFPAY | PROVIDERS: PCP Internal Medicine; Visit Provider Internal Medicine | DX: Z12.31 Encounter for screening mammogram for malignant neoplasm of breast (principal) | CPT/HCPCS: 77063; 77067 ==

== ENCOUNTER 2025-06-09 11:42 | Outpatient (AMB) | payer BC, SELFPAY | END 2025-06-09 11:43 | disposition home or self-care (01) | LOC: HO.HMGAL 11:42 | PROVIDERS: PCP Internal Medicine; Visit Provider Registered Nurse Emergency | DX: J30.89 Other allergic rhinitis (principal) | CPT/HCPCS: 95117; 95165 ==

== ENCOUNTER 2025-06-11 11:01 | Outpatient (AMB) | payer BC, SELFPAY ==
[2025-06-11 11:12] VITALS: BP 118/60; BMI 28.2
--- NOTE | 2025-06-11 11:12 | A.OFFVIS_ITS ---
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 No complaints. Last Pap/HPV was negative in 01/11 Last Mammogram was BI-RADS 1 in 05/17 Last Colonoscopy was in 04/14, the recommendation was to repeat in 5 years Last DEXA scan was in 04/15 [facility] Medical History Vulvar pain GERD (gastroesophageal reflux disease) Surgical History Hx of rotator cuff surgery History of esophagogastroduodenoscopy (EGD) H/O colonoscopy History of back surgery History of tonsillectomy Hx of appendectomy Family History Father Colon cancer Mother HTN (hypertension) Dementia Social History Household Members: Spouse Housing: House Alcohol intake: never Patient Tobacco Use Status: Never used Tobacco Patient : No Current occupational status: employed 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 Sexual orientation: Straight/Heterosexual Gender identity: Female Female Reproductive History Menstrual Age of Menarche: 12 control method: none Total pregnancies: 1 Date of last pap smear: 01/07/21 History of abnormal pap smear: No History of STI: No Date of Mammogram: 05/21/25 (bi rads 1) History of abnormal mammogram: No Date of last Bone Density Screenin04/13/23 Review of Systems Const All systems reviewed & are unremarkable except as noted in HPI and below Card Reports as per HPI Resp Reports as per HPI GI Reports as per HPI and Reports no additional complaints Reports as per HPI Physical Exam Vital Signs: Last Vital Signs BP 118/60 06/11/25 11:12 BMI result Body Mass Index 28.2 Const General: cooperative, healthy appearing and comfortable Chest Chest palpation & inspection: normal inspection of the chest and normal palpation of entire chest wall Breast/axilla inspection: normal inspection of the breasts and normal inspection of the axillae Breast/axilla palpation: normal palpation of the breasts, normal palpation of the axillae and no axillary lymphadenopathy Resp Effort & Inspection: normal respiratory effort Auscultation: clear to auscultation bilaterally Percussion: percussion normal Cardio Palpation: normal PMI Rate: regular rate Rhythm: regular rhythm Heart sounds: no murmurs and no rubs Peripheral pulses: Peripheral pulses 2+ throughout GI Inspection: Yes normal to inspection Palpation (GI): Soft to palpation, nontender, no guarding, not rigid and No hepatosplenomegaly present Percussion: Yes normal to percussion Auscultation: normal bowel sounds Rectal Exam - Female: deferred General: Yes bladder normal to palpation External Female Exam: No lesion Speculum Exam - Vagina: normal appearance of the vagina, normal palpation, normal vaginal discharge and not erythematous Speculum Exam - Cervix: normal appearance of the cervix and normal palpation Bimanual exam- vagina & uterus: normal bimanual exam, normal palpation, uterine size normal, bladder normal to palpation, consistency normal and normal palpation Bimanual Exam- Adnexa, other: normal adnexae, no masses and no tenderness Assessment & Plan Assessment & Plan (1) Well woman exam: Code(s): Z01.419 - Encounter for gynecological examination (general) (routine) without abnormal findings Category: Medical Plan: Co testing not indicated since the patient 's age is above 65 with no history of abnormal Pap smears last 25 years, adequately screen for the last 10 years with no history of immunosuppression. Counseled the patient about the recommended dietary allowance of 1200 mg of Calcium & 800 IU of vitamin D. Instructions given the patient to schedule next screening Mammogram in 04/18. Will order DEXA scan . The patient was instructed to perform monthly self-breast exams and to schedule a 2 week DEXA scan follow-up appointment and an annual exam in a year; All questions answered and the patient verbalized understanding. Orders: Orders XR DEXA axial skeleton Today Z78.0 - Asymptomatic menopausal state Coding Level of Care Code Est Pt Prev Care >65y(08463) Diagnoses Well woman exam Z01.419
--- OUTSIDE RECORDS SUMMARY | 2025-06-11 21:49 | XMS_ITS | Clinical Summary ---
Author Organization [facility] Address [address] [place] [address] Phone Care Team Providers Care Speech Language Specialist Name Role Phone Michael Olsen MD Primary Care Provider [phone] Allergies Active Allergy Reactions Criticality Noted Date Comments Amoxicillin 10/28/2021 Latex Rash Low 05/04/2023 Medications pbp-C0-hyc43-zi kq-ngi-gqoy-bor (Caltrate 600-D Plus Minerals) 600 mg calcium- [...] difficulty. 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 after [...] - [place] [address] [place] [address] Douglas Leonard MD Impingement of right shoulder [...] AM EST Office Visit Orthopedic Surgery - [place] [address] [facility] [address] [place] [address] Douglas Leonard MD [address] [facility] [address] [place] [address] Health Maintenance Due Date Last Done Comments Breast Cancer Screening 1955 Colorectal Cancer Screening: Colonoscopy 1955 Zoster Vaccines (2 of 3) 11/20/2016 09/25/2016 Falls Risk Assessment 06/26/2022 Osteoporosis Screening (Bone Density Screening) 06/26/2022 Social Influencers of Health Screening 06/26/2022 Depression Screening 07/24/2024 COVID-19 Vaccine (7 - 2025-26 season) 2025 05/02/2024, 05/25/2023, 05/27/2022, Additional history [...] this topic Medical Devices Implanted Type Area Shipping And Receiving Clerk Device Identifier Shelf Expiration Date Model / Serial / Lot [place] Sut 5.5mm Healicoil Regenesorb 3 Sutures [facility]-Endo [id number] Implanted:Qty: 1 on 05/08/2023 by Douglas Leonard MD Left: Shoulder [employer] 01/19/2026 [id number] / / [id number] Implant Bioinductive W Arth Del Med [facility]-Endo [id number] Implanted:Qty: 1 on 05/08/2023 by Douglas Leonard MD Left: Shoulder [employer] 01/21/2026 [id number] / / [id number] Lorane Bone Arthro Del Sys Advncd [facility]-Endo [id number] Implanted:Qty: 1 on 05/08/2023 by Douglas Leonard MD Left: Shoulder [employer] 10/03/2025 [id number] / / [id number] Anchors Tendon 8 Smn-Endo [id number] Implanted:Qty: 1 on 05/08/2023 by Douglas Leonard MD Left: Shoulder [employer] - [employer]TH[employer] 11/11/2025 [id number] / / [id number] Procedures Procedure Name Priority Date/Time Associated Diagnosis [...] Most Recently Relevant to Health Maintenance Insurance [facility] Care Teams Speech Language Specialist Relationship Specialty Start Date End Date Michael Olsen MD [address] [place], [place] [id number] PCP - General Internal Medicine 10/27/21
--- OUTSIDE RECORDS SUMMARY | 2025-06-11 21:49 | XMS_ITS | Clinical Summary ---
Author Organization [facility] Address [address] [place] [address] Care Team Providers Care Breaker Machine Operator Name Role Phone Michael Olsen MD Primary Care Provider [phone] Allergies Active Allergy Reactions Criticality Noted Date [...] this topic Medical Devices Implanted Type Area Motor Inspection Mechanic Device Identifier Shelf Expiration Date Model / Serial / Lot [place] Sut 5.5mm Healicoil Regenesorb 3 Sutures Smn-Endo [id number] - [id number] Implanted:Qty: 1 on 05/08/2023 by Douglas Leonard MD at [facility] Location Left: Shoulder [employer] 01/19/2026 [id number] / / [id number] Implant Bioinductive W Arth Del Med [facility]-Endo [id number] - [id number] Implanted:Qty: 1 on 05/08/2023 by Douglas Leonard MD at [facility] Location Left: Shoulder [employer] 01/21/2026 [id number] / / [id number] [place] Bone Arthro Del Sys Advncd Smn-Endo [id number] - [id number] Implanted:Qty: 1 on 05/08/2023 by Douglas Leonard MD at [facility] Location Left: Shoulder [employer] 10/03/2025 [id number] / / [id number] Anchors Tendon 8 Smn-Endo [id number] - [id number] Implanted:Qty: 1 on 05/08/2023 by Douglas Leonard MD at [facility] Location Left: Shoulder [employer] 11/11/2025 [id number] / / [id number] Care Teams Breaker Machine Operator Relationship Specialty Start Date End Date Michael Olsen MD [address] [place] Frankie Dillon [facility] [place] [address] PCP - General Internal Medicine 04/28/23
--- OUTSIDE RECORDS SUMMARY | 2025-06-11 21:49 | XMS_ITS | Encounter Summary ---
Author Organization [facility] Address [address] [facility] [address] [place] [address] Phone Care Team Providers Care Talent Scout Name Role Phone Michael Olsen MD Primary Care Provider [phone] Dakota Pfeiffer MD Unavailable [phone] Reason for Visit * Reason Onset Date Comments Cloudy Urine 12/01/2022 Encounter Details Date Type Department Care Team (Late st Contact Info) Description 12/01/2022 Nurse Triage [facility] Internal Medicine [address] [place] [address] Referring, Not Required Cloudy Urine Social History [...] high school, GED, job training, learning the [place] language, technical skills, or developing parenting skills)? [...] Follow Advice Disposition Comments: Protocols used: Urinary Sovihcui-Gimkv-Nx Initial Symptom Screening and Assessment IA None [...] procedure, or surgery. * Your doctor (or SOFTWARE TESTER/PA) can help you find out what is causing this problem. Patient will call back with additional questions or if symptoms change or worsen Karen Mckeon RN Reason for Disposition and Assessment Reason for Disposition ??? Urinating more frequently than usual (i.e., frequency) Protocols used: URINARY [id number] * Nallely Schwartz - 12/01/2022 12:43 PM EDT Patient leaves a voicemail saying she has had cloudy urine since having intercourse last weekend. Please contact and advise. Thanks. documented in this encounter Plan of Treatment Upcoming Encounters Date Type Department Care Team (Late st Contact Info) Description 12/03/2025 8:00 AM EDT Office Visit [facility] Internal Medicine [address] [place] [address] Michael Olsen MD [address] [place] [address] [email or web address] documented as of this encounter Results * (ABNORMAL) Urinalysis w/reflex Urine Culture (12/01/2022 4:19 PM EDT) COLOR Yellow Yellow [facility] CLARITY CLOUDY [facility] GLUCOSE Negative Negative [facility] BILI Negative Negative [facility] KETONES Negative Negative [facility] SPECIFIC GRAVITY 1.015 1.005 - 1.030 [facility] BLOOD 2+(A) Negative [facility] PH 6.0 5.0 - 8.0 [facility] Protein-UA 1+(A) Negative [facility] NITRITE Positive(A) Negative [facility] Leukocyte esterase, ur 3+(A) Negative [facility] Urine (Urine) 12/01/2022 4:1 9 PM EDT 12/01/2022 4:21 PM EDT Kaylah Yeager SOFTWARE TESTER LAB URINE ORDERABLES Final Resu lt [facility] [address] [place] [address] documented in this encounter Visit Diagnoses Diagnosis Urinary tract infection symptoms- Primary documented in this encounter Additional Health Concerns Assessment Noted Time PHQ-2 Depression Total Score: 0 04/30/20 22 9:30 AM EDT documented as of this encounter Care Teams Talent Scout Relationship Specialty Start Date End Date Michael Olsen MD [address] [place] [address] [email or web address] PCP - General Internal Medicine 10/28/19 Dakota Pfeiffer MD [address] [place] [address] Gastroenterology 11/22/19 documented as of this encounter Additional Source Comments The information contained in this document represents components of the legal health record. It is not the complete legal health record.[facility]
--- OUTSIDE RECORDS SUMMARY | 2025-06-11 21:49 | XMS_ITS | Encounter Summary ---
Author Organization [facility] Address [address] [place] [address] Phone Care Team Providers Care Trial Judge Name Role Phone Michael Olsen MD Primary Care Provider [phone] Dakota Pfeiffer MD Unavailable [phone] Encounter Details Date Type Department Care Team (Late st Contact Info) Description 05/26/2025 Orders Only [facility] Internal Medicine [address] [place] [address] Provider, MD Stephen [address] [place] [address] Social History Tobacco Use Types Packs/Day Years [...] housing situation today? I have macie hameed 11/19/2024 How many times have you move [...] on file documented as of this encounter Plan of Treatment Upcoming Encounters Date Type Department Care Team (Late st Contact Info) Description 12/03/2025 8:00 AM EDT Office Visit [facility] Internal Medicine [address] [place] [address] Michael Olsen MD [address] [place] [address] [email or web address] documented as of this encounter Procedures Procedure Name Priority Date/Time Associated Diagnosis Comments MAMMOGRAPHY Routine 05/21/2025 3:51 PM EDT documented in this encounter Results * MAMMOGRAPHY FOR RESULT ENTRY ONLY (05/21/2025 3:51 PM EDT) us Historical Provider HEALTH MAINTENANCE Final Result documented in this encounter Visit Diagnoses Not on filedocumented in this encounter Additional Health Concerns Assessment Noted Time PHQ-2 Depression Total Score: 0 11/20/19 25 11:15 AM EDT documented as of this encounter Care Teams Trial Judge Relationship Specialty Start Date End Date Michael Olsen MD [address] [place] [address] PCP - General Internal Medicine 10/28/19 Dakota Pfeiffer MD [address] [place] [address] [place] [address] Gastroenterology 11/22/19 documented as of this encounter Additional Source Comments The information contained in this document represents components of the legal health record. It is not the complete legal health record.[facility]
--- OUTSIDE RECORDS SUMMARY | 2025-06-11 21:49 | XMS_ITS | Clinical Summary ---
Author Organization [facility] Address [address] [place] [address] Phone Care Team Providers Care Bias Machine Operator Helper Name Role Phone Michael Olsen MD Primary Care Provider [phone] Dakota Pfeiffer MD Unavailable [phone] Allergies Active Allergy Reactions Criticality Noted Date Comments Amoxicillin Itching 08/05/2019 Latex Rash Low 05/04/2023 Medications multivitamin-mi nerals-lutein (CENTRUM SILVER) Tab Take 1 tablet by mouth daily. Active Ca cit-D3-mag#11-z mis-bzxg-qwr-mauricio r (CALTRATE 600+D) 600 mg calcium- 800 unit-50 mg Tab Take 1 tablet by mouth daily. Active Medication-Free Text Pt goes for allergy injections every month at [facility] Dr. Peterson Active estradioL (ESTRACE) 0.01 % (0.1 mg/gram) vaginal cream APPLY PEA-SIZED TO THE URETHRA 3 TIMES A WEEK 2 Active naproxen sodium (ALEVE) 220 MG tablet Take 1 tablet by mouth as needed. 3 Active Active Problems Problem Noted Date Diagnosed Date Poison corbin 04/17/2024 Overview (04/17/2024): 03[facility]14/24 [facility], benadryl at Frequent UTI 03/27/2024 Overview (03/27/2024): Follows with [facility] SYDNIE Burns [facility] urology last visit 02/26/24 cont vit c, [...] 11/22/2019 Elevated cholesterol 11/22/2019 Thrombocytopenia Allergic rhinitis Encounters Date Type Department Care Team Description 05/26/2025 Orders Only [facility] Internal Medicine [address] [place] [address] Provider, MD Stephen from Last 3 Months Immunizations Immunization Administration Dates Next Due COVID-19 [...] Description 12/03/2025 8:00 AM EDT Office Visit [facility] Internal Medicine [address] [place] [address] Michael Olsen MD [address] [place] [address] [email or web address] Health Maintenance Due Date Last Done Comments COLOGUARD 2000 FIT TEST 2000 FOBT 2000 SIGMOIDOSCOPY 2000 VIRTUAL COLONOSCOPY 2000 ZOSTER VACCINES (1 of 2) 2005 09/25/2016 INFLUENZA VACCINE (#1) 2025 , 03/23/2023, 05/03/2022, Additional history exists COVID-19 VACCINE ( season) 2025 05/02/2024, 05/25/2023, 05/27/2022, Additional history exists DEPRESSION SCREENING 11/19/2025 11/19/2024 COLONOSCOPY 04/08/2027 04/08/2022, 09/23/2016 COLORECTAL CANCER SCREENING 04/08/2027 MAMMOGRAM 05/21/2027 05/21/2025, 04/23, 05/08/2024, Additional history exists SCREENING FOR DIABETES 11/26/2027 , 11/25/2024, 02/12/2019 [...] Comments MAMMOGRAPHY Routine 05/21/2025 3:51 PM EDT LIPID PANEL Routine 11/25/2024 10:14 AM EDT Routine general medical examination at a health care facility DEXA SCAN Routine 04/13/2023 COLONOSCOPY FOR RESULT ENTRY ONLY Routine 04/08/2022 HEPATITIS C ANTIBODY, QUALITATIVE Routine 02/04/2020 8:04 AM EDT Need for hepatitis C screening test OUTSIDE GLUCOSE FASTING Routine 02/12/2019 from Last 3 Months or Most Recently Relevant to Health Maintenance Results * MAMMOGRAPHY FOR RESULT ENTRY ONLY (05/21/2025 3:51 PM EDT) Historical Provider HEALTH MAINTENANCE Final Result * (ABNORMAL) Lipid panel (11/25/2024 10:14 AM EDT) HDL 65 mg/dL [facility] Comment: Interpretation <40 mg/dL: Low HDL cholesterol (major risk factor for CHD) Greater than or equal to 60 mg/dL: High HDL cholesterol ( negative risk factor for CHD) HDL - cholesterol is affected by a number of factors, e.g. smoking, excerise, hormones, sex and age. CHOLESTEROL 210 0 - 240 mg/dL [facility] TRIGLYCERIDES 85 30 - 160 mg/dL [facility] LDL 128 50 - 129 mg/dL [facility] Comment: LDL levels in terms of risk for coronary heart disease: <100 mg/dL: Optimal 100-129 mg/dL: Near or above optimal 130-159 mg/dL: Borderline high 160-189 mg/dL: High >190 mg/dL: Very High CARDIAC RISK RATIO 3.2(L) 3.3 - 4.[address] [facility] Blood 11/25/2024 10:1 4 AM EDT 11/25/2024 10:15 AM EDT Michael Olsen MD LAB BLOOD BKR ORDERABLES Becky l Result [address] [address] * DEXA SCAN (04/13/2023) us Michael Olsen MD HEALTH MAINTENANCE Edited Res ult - Final * COLONOSCOPY FOR RESULT ENTRY ONLY (04/08/2022) Historical Provider HEALTH MAINTENANCE Edited Result - Final * Hepatitis C antibody, qualitative (02/04/2020 8:04 AM EDT) HCV NON-REACTIV E NON-REACTI VE [facility] Blood 02/04/2020 8:04 AM EDT 02/04/2020 8:09 AM EDT us Michael Olsen MD LAB BLOOD BKR ORDERABLES Becky l Result [facility] [address] [place] [address] * Outside Glucose,Fasting (02/12/2019) Glucose, fasting - External 93 65 - 99 mg/dL us Historical Provider LAB BLOOD ORDERABLES Becky l Result from Last 3 Months or Most Recently Relevant to Health Maintenance Insurance [address] [place], [place] [id number] [facility] PPO EPO [address] [place] [id number] [facility] PPO EPO [address] [place] [address] PPO EPO PPO EPO PPO EPO PPO EPO PPO EPO [place] [address] [place] [address] PPO EPO Care Teams Bias Machine Operator Helper Relationship Specialty Start Date End Date Michael Olsen MD [address] [place] [address] [email or web address] PCP - General Internal Medicine 10/28/19 Dakota Pfeiffer MD [address] [place] [address] Drive [address] [place] [address] Gastroenterology 11/22/19 Additional Source Comments The information contained in this document represents components of the legal health record. It is not the complete legal health record.[facility]
--- OUTSIDE RECORDS SUMMARY | 2025-06-11 21:49 | XMS_ITS | Patient Health Record ---
Author Organization [facility] Address [address] [place] [address] Care Team Providers Care Pl Sql Programmer Name Role Phone Michael Olsen MD Primary Care Provider Dakota Rivera [phone] Allergies Allergen (clinical drug ingredient) Drug/Non Drug Allergy documented on EMR Reaction Allergy Type Onset Date Status amoxicillin Amoxicillin Unknown Drug Allergy Act awilda Reason For Referral No Information Medications Medication SIG (Take, Route, Frequency, Duration) Notes Start Date End Date Status Estradiol 0.1 MG/GM Cream Vaginal; Duration: 90 Active Terazosin HCl 1 MG Capsule TAKE 1 CAPSUL E BY MOUTH AT BEDTIME Oral; Duration: 30 Activ e Bactrim 400-80 MG Tablet 1 tablet Orally Once a day; Duration: 10 day(s) Active Immunizations Vaccine Route Administration Date Status Comme nts Influenza Unknown 05/11/2021 Administered Social History Social History Additional Details Category Social Info Options Details Miscellaneous: Marital status: -- has a roommate 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 [employer] Notes: Nonsmoker; no sig alcohol Nonsmoker; no sig alcohol Problems Problem Type SNOMED Code ICD Code Onset Dates Problem Status W/U Status Risk Notes Problem Screening for malignant neoplasm of colon (344445452) Encounter for screening for malignant neoplasm of colon (Z12.11) Active confirmed Problem Screening for malignant neoplasm of rectum (622575612) Encounter for screening for malignant neoplasm of rectum (Z12.12) Active confirmed Problem Preprocedural examination (162973707683468) Preprocedural examination (Z01.818) Active confirmed Problem Family History of Cancer of Colon (Situation) (758640172) Family history of colon cancer (Z80.0) Active confirmed Problem History of adenomatous polyp of colon (166864538) Hx of adenomatous colonic polyps (Z86.010) Active confirmed Problem Pre-procedure evaluation check (004675826) Pre-procedural examination (Z01.818) Active confirmed Problem Diverticulosis of colon (105828313) Diverticulosis of colon (K57.30) Active confirmed Encounters Encounter Location Date Provider Diagnosis [facility] [address] [place] [address] 05/02/2025 Dakota Pfeiffer Plan Of Treatment Future Test Test Name Order Date COLONOSCOPY 06/22/2016 COLONOSCOPY 11/03/2021 Insurance Providers Payer Name Payer Address Payer Phone Subscriber Number Group Number Insured Name Patient Relationship to Insured Coverage Start Date Coverage End Date [facility] [address] [place] [address] [phone] [id number] Eloisa BAILON Self - patient is the insured Medical (General) History Medical History History ICD Code Colonoscopy 05/2006--negative except for internal hemorrhoids GERD-EGD in 05/2006--small H H-no esophagitis, no Elmore's---benign gastic polyps Denies [place],DM,CVA,Lung disease,renal dise ase Colonoscopy 09/2016 with a small tubular adenoma Surgical History Surgery Date(Month/Year) Tonsillectomy Appendectomy Back surgery L4/L5 Decompression 10/2021
== END 2025-06-11 11:50 | disposition home or self-care (01) ==
LOC: HO.HWS 11:02
PROVIDERS: PCP Internal Medicine; Visit Provider Obstetrics & Gynecology
DX: Z01.419 Encounter for gynecological examination (general) (routine) without abnormal findings (principal)
CPT/HCPCS: 99397; 99459

== ENCOUNTER 2025-07-07 11:45 | Outpatient (AMB) | payer BC, SELFPAY | END 2025-07-07 11:45 | disposition home or self-care (01) | LOC: HO.HMGAL 11:45 | PROVIDERS: PCP Internal Medicine; Visit Provider Registered Nurse Emergency | DX: J30.89 Other allergic rhinitis (principal) | CPT/HCPCS: 95117; 95165 ==